=== PATIENT | female | born 1995 | race Caucasian/White ===

== ENCOUNTER 2017-02-05 19:19 | Emergency (ER) | payer OTHER ==
[2017-02-05] MEDS ORDERED: IBUPROFEN 600 MG TABLET PO STA (20:06)
[2017-02-05] MEDS ORDERED: AZITHROMYCIN 250 MG TABLET PO STA (20:07)
[2017-02-05] MEDS ORDERED: AZITHROMYCIN 250 MG TABLET PO ONE (20:10)
[2017-02-05] MEDS ORDERED: IBUPROFEN 600 MG TABLET PO ONE (20:10)
== END 2017-02-05 20:19 | disposition home or self-care (01) ==
DX: J18.9 Pneumonia, unspecified organism (principal); R55 Syncope and collapse; F17.200 Nicotine dependence, unspecified, uncomplicated
CPT/HCPCS: 71020; 87275; 87276; 99283; 99284; A9270

== ENCOUNTER 2017-02-24 15:25 | Emergency (ER) | payer OTHER ==
[2017-02-24] MEDS ORDERED: IBUPROFEN 400 MG TABLET PO STA (15:40)
[2017-02-24] MEDS ORDERED: IBUPROFEN 400 MG TABLET PO ONE (15:46)
== END 2017-02-24 17:20 | disposition home or self-care (01) ==
DX: S90.32XA Contusion of left foot, initial encounter (principal); W20.8XXA Other cause of strike by thrown, projected or falling object, initial encounter; F17.200 Nicotine dependence, unspecified, uncomplicated
CPT/HCPCS: 73630; 99282; 99283; A9270

== ENCOUNTER 2017-06-10 16:06 | Emergency (ER) | payer OTHER ==
[2017-06-10] MEDS ORDERED: ONDANSETRON 4 MG/2 ML VIAL IVP STA (16:30)
[2017-06-10] MEDS ORDERED: HYDROmorphone 1 MG/ML SYRINGE IVP STA (16:30)
[2017-06-10] MEDS ORDERED: SODIUM CHLORIDE 0.9% 1,000 ML IV ONE ×2 (16:30→17:19)
[2017-06-10] MEDS ORDERED: HYDROmorphone 1 MG/ML SYRINGE ONE (16:51)
[2017-06-10] MEDS ORDERED: ONDANSETRON 4 MG/2 ML VIAL ONE (16:51)
[2017-06-10 16:59] LABS: BILIRUBIN,URINE NEGATIVE (NEGATIVE); PH,URINE 5.5 PH (5.0-7.5)
[2017-06-10 16:59] LABS: BASOPHILS % (AUTO) 0.1 %; EOSINOPHILS # (AUTO) 0.3 10^3/uL (0.0-0.7); EOSINOPHILS % (AUTO) 2.4 %; HCT - HEMATOCRIT 41.3 % (37.0-47.0); HGB - HEMOGLOBIN 14.2 g/dL (12.0-16.0); LYMPHOCYTES % (AUTO) 7.2 %; MEAN CORPUSCULAR HEMOGLOBIN 31.4 pg (27.0-31.0); MEAN CORPUSCULAR HGB CONC 34.3 g/dL (32.0-36.0); MEAN CORPUSCULAR VOLUME 91.4 fL (81.0-99.0); MEAN PLATELET VOLUME 8.3 fL (7.9-10.8); MONOCYTES # (AUTO) 0.7 10^3/uL (0.0-1.0); MONOCYTES % (AUTO) 4.9 %; NEUTROPHILS # (AUTO) 11.4 10^3/uL (1.5-6.6); NEUTROPHILS % (AUTO) 85.4 %; RED BLOOD COUNT 4.52 10^6/uL (4.20-5.40); UNCORRECTED WHITE BLOOD COUNT 13.3 x10^3/uL; WHITE BLOOD COUNT 13.3 x10^3/uL (4.8-10.8)
[2017-06-10 17:01] LABS: HCG UR QUAL NEGATIVE; UA w/ MICROSCOPIC CHARGE YES
[2017-06-10 17:07] LABS: UR CULTURE IF IND NOT INDICATED; WBC,URINE >25 /HPF (0-5)
[2017-06-10 17:10] LABS: ALBUMIN/GLOBULIN RATIO 1.1 (1.0-2.2); BILIRUBIN,TOTAL 1.8 mg/dL (0.2-1.0); CALCIUM 9.6 mg/dL (8.5-10.3); CREATININE 0.7 mg/dL (0.4-1.0); TOTAL PROTEIN 9.3 g/dL (6.7-8.2)
--- NOTE | 2017-06-10 18:11 | ED Physician Documentation ---
PD HPI ABD PAIN - Stated complaint Stated Complaint: VOMITING - Chief complaint Chief Complaint: Abd Pain - History obtained from History obtained from: Patient - History of Present Illness Timing - onset: Last night Location: Epigastric Associated symptoms: Vomiting, Diarrhea. No: Fever Similar symptoms before: Has not had sx before - Additional information Additional information: The patient is a 21-year-old female who presents with upper abdominal discomfort , vomiting, and watery diarrhea, that has been ongoing since last night. She has had numerous episodes of vomiting. She denies fever or dysuria. She is currently on her menstrual period. She denies history of similar symptoms in the past. She is status post appendectomy. No other family members are ill with similar symptoms. Review of Systems Constitutional: denies: Fever Nose: denies: Congestion Cardiac: denies: Chest pain / pressure Respiratory: denies: Dyspnea, Cough GI: reports: Abdominal Pain, Nausea, Vomiting, Diarrhea : reports: LMP (currently). denies: Dysuria Skin: denies: Rash Musculoskeletal: denies: Back pain Neurologic: denies: Syncope, Headache PD PAST MEDICAL HISTORY - Past Medical History Cardiovascular: None Respiratory: Other Neuro: None Endocrine/Autoimmune: None GI: None : None HEENT: None Psych: None Musculoskeletal: None Derm: None - Past Surgical History Past Surgical History: Yes General: Appendectomy HEENT: Tonsil/Adenoidectomy - Present Medications Home Medications: Ambulatory Orders Medication Instructions Recorded Confirmed HYDROcod/ACETAM 5/325 [[place] 5/325] 1 - 2 ea PO Q6H PRN #15 tablet 06/10/17 Promethazine [Phenergan] 25 - 50 mg PO Q6H PRN #10 tab 06/10/17 - Allergies Allergies/Adverse Reactions: Allergies Allergy/AdvReac Type Severity Reaction Status Date / Time pineapple Allergy Severe Edema Verified 02/05/17 19:22 epinephrine Allergy Unknown Unknown Verified 02/05/17 19:22 morphine Allergy Unknown Verified 02/24/17 15:31 Penicillins Allergy Unknown Verified 02/24/17 15:31 nuts Allergy Severe Hives Uncoded 02/05/17 19:22 ирина, coconut Allergy Hives Uncoded 02/05/17 19:22 - Social History Does the pt smoke?: Yes Smoking Status: Current some day smoker Does the pt drink ETOH?: Yes Does the pt have substance abuse?: No - Immunizations Immunizations are current?: Yes - POLST Patient has POLST: No PD ED PE NORMAL - Vitals Vital signs reviewed: Yes (tachycardic) - General General: Alert and oriented X 3, Well developed/nourished - HEENT HEENT: Atraumatic, Pharynx benign - Neck Neck: No adenopathy, No JVD - Cardiac Cardiac: No murmur, Other (Rapid rate, regular rhythm.) - Respiratory Respiratory: No respiratory distress, Clear bilaterally - Abdomen Abdomen: Soft, Non distended, No organomegaly, Other (Diminished bowel tones, mild epigastric tenderness to palpation, without rebound or guarding.) - Back Back: No CVA TTP - Derm Derm: No rash - Extremities Extremities: No edema, No calf tenderness / cord - Neuro Neuro: Alert and oriented X 3, No motor deficit, No sensory deficit Results - Vitals Vitals: Vital Signs - 24 hr 06/10/17 06/10/17 06/10/17 16:09 17:52 18:44 Temperature 36.4 C L 36.6 C Heart Rate 113 H 94 88 Respiratory 18 12 16 Rate Blood Pressure 116/82 H 109/62 111/65 O2 Saturation 99 99 100 Oxygen O2 Source Room air - Labs Labs: Laboratory Tests 06/10/17 06/10/17 06/10/17 16:36 16:50 16:50 WBC 13.3 H RBC 4.52 Hgb 14.2 Hct 41.3 MCV 91.4 MCH 31.4 H MCHC 34.3 RDW 13.0 Plt Count 266 MPV 8.3 Neut # 11.4 H Lymph # 1.0 L Wilkes # 0.7 Eos # 0.3 Baso # 0.0 Absolute Nucleated RBC 0.00 Nucleated RBCs 0.0 Sodium 138 Potassium 4.0 Chloride 105 Carbon Dioxide 23 Anion Gap 10.0 BUN 26 H Creatinine 0.7 Estimated GFR (MDRD) 104 Glucose 91 Calcium 9.6 Total Bilirubin 1.8 H AST 22 ALT 14 Alkaline Phosphatase 111 Total Protein 9.3 H Albumin 4.8 Globulin 4.5 H Albumin/Globulin Ratio 1.1 Lipase 22 Urine Color YELLOW Urine Clarity HAZY Urine pH 5.5 Ur Specific [place] 1.025 Urine Protein NEGATIVE Urine Glucose (UA) NEGATIVE Urine Ketones NEGATIVE Urine Occult Blood LARGE H Urine Nitrite NEGATIVE Urine Bilirubin NEGATIVE Urine Urobilinogen 0.2 (NORMAL) Ur Leukocyte Esterase MODERATE H Urine RBC 11-25 H Urine WBC >25 H Ur Squamous Epith Cells MANY Squamous H Urine Bacteria Few Urine Mucus Marked Strands Ur Microscopic Review INDICATED Urine Culture Comments NOT INDICATED Urine HCG, Qual NEGATIVE PD MEDICAL DECISION MAKING - ED course Complexity details: reviewed results, re-evaluated patient, considered differential, d/w patient, d/w family ED course: The patient's presentation is significant for gastroenteritis with vomiting, diarrhea, and dehydration. It is likely viral gastroenteritis. Her presentation does not suggest pancreatitis, biliary colic, and I doubt colitis. Treatment in the emergency department included administration of normal saline 2 L IV, hydromorphone 1 mg IV, and ondansetron 4 mg IV. Her symptoms markedly improved with the above treatment, and she subsequently demonstrated the ability to drink fluids without recurrent vomiting. She is being discharged with prescriptions for Phenergan and for Vicodin, 15 tablets. I discussed with her and her the expected course of illness, symptomatic treatment and outpatient follow-up, as well as potentially worrisome signs or symptoms that should prompt reevaluation is needed emergency department. Departure - Departure Disposition: 01 Home, Self Care Clinical Impression: Gastroenteritis, Dehydration Vomiting Qualifiers: Vomiting type: unspecified Vomiting Intractability: non-intractable Nausea presence: with nausea Qualified Code(s): R11.2 - Nausea with vomiting, unspecified Diarrhea Qualifiers: Diarrhea type: unspecified type Qualified Code(s): R19.7 - Diarrhea, unspecified Instructions: ED Gastroenteritis Viral, ED Dehydration [facility]] Prescriptions: HYDROcod/ACETAM 5/325 [[place] 5/325] 1 - 2 ea PO Q6H PRN #15 tablet PRN Reason: Pain Promethazine [Phenergan] 25 - 50 mg PO Q6H PRN #10 tab PRN Reason: Nausea / Vomiting Comments: Drink plenty of fluids. You can use Phenergan as prescribed if needed for nausea. You can use Vicodin as prescribed if needed for pain. Return to the emergency department if you develop increasing abdominal pain, persistent vomiting with recurrent dehydration, or otherwise worsening symptoms. Discharge Date/Time: 06/10/17 18:45
[2017-06-10 18:45] VITALS: BP 111/65
== END 2017-06-10 18:45 | disposition home or self-care (01) ==
LOC: ED 16:06
DX: E86.0 Dehydration (principal); K52.9 Noninfective gastroenteritis and colitis, unspecified; F17.200 Nicotine dependence, unspecified, uncomplicated
CPT/HCPCS: 36415; 80053; 81001; 81025; 83690; 85025; 96361; 96374; 96375; 99283; 99284; J1170; 81003; 87086

== ENCOUNTER 2017-07-01 22:32 | Emergency (ER) | payer OTHER ==
[2017-07-01 22:41] VITALS: BP 123/88
--- NOTE | 2017-07-01 23:08 | ED Physician Documentation ---
PD HPI UPPER EXT INJURY - Stated complaint Stated Complaint: RT ARM PX - Chief complaint Chief Complaint: Ext Problem - History obtained from History obtained from: Patient - History of Present Illness Location: Right, Shoulder, Elbow, Finger (middle) Type of injury: Twist (her dog pulled/yanked abruptly on the leash as she was holding it around her wrist. No fall nor direct impact.) Where injury occurred: Home Timing - onset: Today (just shortly [employer]) Timing - details: Abrupt onset, Still present Review of Systems Skin: denies: Rash, Lesions Neurologic: denies: Focal weakness, Numbness PD PAST MEDICAL HISTORY - Past Medical History Past Medical History: No Cardiovascular: None Respiratory: Other Neuro: None Endocrine/Autoimmune: None GI: None : None HEENT: None Psych: None Musculoskeletal: None Derm: None - Past Surgical History Past Surgical History: Yes General: Appendectomy HEENT: Tonsil/Adenoidectomy - Present Medications Home Medications: Ambulatory Orders Medication Instructions Recorded Confirmed Tramadol HCl 50 mg PO Q6H PRN #20 tablet 07/01/17 - Allergies Allergies/Adverse Reactions: Allergies Allergy/AdvReac Type Severity Reaction Status Date / Time pineapple Allergy Severe Edema Verified 07/01/17 22:40 epinephrine Allergy Unknown Unknown Verified 07/01/17 22:40 morphine Allergy Unknown Verified 07/01/17 22:40 Penicillins Allergy Unknown Verified 07/01/17 22:40 nuts Allergy Severe Hives Uncoded 07/01/17 22:40 ирина, coconut Allergy Hives Uncoded 07/01/17 22:40 - Social History Does the pt smoke?: Yes Smoking Status: Current some day smoker Does the pt drink ETOH?: Yes Does the pt have substance abuse?: No - Immunizations Immunizations are current?: Yes - POLST Patient has POLST: No PD ED PE NORMAL - Vitals Vital signs reviewed: Yes - General General: Alert and oriented X 3, No acute distress, Well developed/nourished - Derm Derm: Normal color, Warm and dry, No rash - Extremities Extremities: Other (right shoulder with some tenderness in suprascapular muscles. Shoulder itself without tenderness at clavicle nor AC. Good ROM of the shoulder and hurts mainly with abductions. Elbow tender posteriorly. Not tender at radial head. Good full flexion and extension, no effusion. RIght middle finger with tenderness at PIP and MCP but no deformity. Good sensation, color, cap refill in tip. No obvious bony deformity. ) Results - Vitals Vitals: Vital Signs - 24 hr 07/01/17 22:37 Temperature 36.4 C L Heart Rate 115 H Respiratory 16 Rate Blood Pressure 123/88 H O2 Saturation 100 Oxygen O2 Source Room air PD MEDICAL DECISION MAKING - ED course Complexity details: considered differential (pain at finger, elbow and shoulder but no bony deformity/ full ROM. Clinically does not seem fractures; patient agrees she does not think she broke anything. Defer xrays. ), d/w patient Departure - Departure Disposition: Home, Self Care Clinical Impression: Arm sprain Finger sprain Qualifiers: Encounter type: initial encounter Finger: middle finger Sprain of finger site: unspecified site Laterality: right Qualified Code(s): S63.612A - Unspecified sprain of right middle finger, initial encounter Condition: Stable Record reviewed to determine appropriate education?: Yes Instructions: ED Sprain Finger, ED Sprain Elbow Prescriptions: Tramadol HCl 50 mg PO Q6H PRN #20 tablet PRN Reason: Pain Comments: Sling for the elbow and shoulder and finger splint for the finger as needed for comfort. Ibuprofen or Naproxen twice daily for 4-5 days. Add Tylenol or Tramadol as needed. Presume ligaments and muscles were injured with the mechanism of injury, so will likely take several days to a week or so to improve. Progress use and activity as able. Recheck if not all better over a week. Discharge Date/Time: 07/01/17 23:50
[2017-07-01] MEDS ORDERED: IBUPROFEN 600 MG TABLET PO STA (23:29)
[2017-07-01] MEDS ORDERED: ACETAMINOPHEN 325 MG TABLET PO STA (23:29)
[2017-07-01] MEDS ORDERED: traMADol 50 MG TABLET PO STA (23:36)
[2017-07-01] MEDS ORDERED: traMADol 50 MG TABLET PO ONE (23:48)
[2017-07-01] MEDS ORDERED: ACETAMINOPHEN 325 MG TABLET PO ONE (23:48)
[2017-07-01] MEDS ORDERED: IBUPROFEN 600 MG TABLET PO ONE (23:48)
== END 2017-07-01 23:50 | disposition home or self-care (01) ==
LOC: ED 22:32
DX: S63.612A Unspecified sprain of right middle finger, initial encounter (principal); X50.1XXA Overexertion from prolonged static or awkward postures, initial encounter; Y93.K1 Activity, walking an animal; F17.200 Nicotine dependence, unspecified, uncomplicated
CPT/HCPCS: 29130; 99283; A9270

== ENCOUNTER 2017-11-12 13:49 | Outpatient (CLI) | payer OTHER ==
[2017-11-12 14:43] LABS: BASOPHILS % (AUTO) 0.2 %; EOSINOPHILS % (AUTO) 0.5 %; LYMPHOCYTES # (AUTO) 1.4 10^3/uL (1.5-3.5); LYMPHOCYTES % (AUTO) 19.2 %; MEAN CORPUSCULAR HGB CONC 35.5 g/dL (32.0-36.0); MEAN CORPUSCULAR VOLUME 92.8 fL (81.0-99.0); MEAN PLATELET VOLUME 8.7 fL (7.9-10.8); MONOCYTES # (AUTO) 0.4 10^3/uL (0.0-1.0); MONOCYTES % (AUTO) 4.8 %; NEUTROPHILS # (AUTO) 5.6 10^3/uL (1.5-6.6); NEUTROPHILS % (AUTO) 75.3 %; PLT - PLATELET COUNT 210 10^3/uL (130-450); RED BLOOD COUNT 3.63 10^6/uL (4.20-5.40); RED CELL DISTRIBUTION WIDTH 13.2 % (12.0-15.0); WHITE BLOOD COUNT 7.5 x10^3/uL (4.8-10.8)
[2017-11-12 15:00] LABS: BILIRUBIN,URINE NEGATIVE (NEGATIVE); GLUCOSE, URINE (UA) NEGATIVE (NEGATIVE); KETONES,URINE (UA) NEGATIVE (NEGATIVE); LEUKOCYTE ESTERASE, URINE MODERATE (NEGATIVE); NITRITE,URINE NEGATIVE (NEGATIVE); OCCULT BLOOD,URINE TRACE-INTA (NEGATIVE); PROTEIN,URINE NEGATIVE (NEGATIVE); UROBILINOGEN,URINE 0.2 (NORMAL) E.U./dL (NORMAL)
[2017-11-12 15:05] LABS: CLARITY,URINE HAZY (CLEAR)
[2017-11-12 15:14] LABS: BACTERIA,URINE Many /HPF (None Seen); RBC,URINE TNTC /HPF (0-5); SQUAMOUS EPITHELIAL CELL,UR MANY Squamous (<= Few); TRICHOMONAS,URINE PRESENT (None Seen)
[2017-11-13 11:51] LABS: HIV AG/AB 4TH GEN NON-REACTIVE (NON-REACTIVE)
[2017-11-13 13:22] LABS: HEPATITIS B SURFACE ANTIGEN NON-REACTIVE (NON-REACTIVE)
[2017-11-13 13:23] LABS: HEPATITIS C ANTIBODY NON-REACTIVE (NON-REACTIVE)
== END 2017-11-12 13:50 | disposition home or self-care (01) ==
LOC: LAB 13:49
PROVIDERS: ATTEND Obstetrics & Gynecology
DX: Z36.9 Encounter for antenatal screening, unspecified (principal)
CPT/HCPCS: 36415; 81001; 81599; 85025; 86592; 86762; 86803; 86850; 86900; 86901; 87086; 87340; 87389

== ENCOUNTER 2017-12-08 18:55 | Emergency (ER) | payer OTHER ==
[2017-12-08 19:39] LABS: BILIRUBIN,URINE NEGATIVE (NEGATIVE); GLUCOSE, URINE (UA) NEGATIVE (NEGATIVE); KETONES,URINE (UA) NEGATIVE (NEGATIVE); LEUKOCYTE ESTERASE, URINE LARGE (NEGATIVE); NITRITE,URINE NEGATIVE (NEGATIVE); OCCULT BLOOD,URINE SMALL (NEGATIVE); PROTEIN,URINE NEGATIVE (NEGATIVE); UROBILINOGEN,URINE 0.2 (NORMAL) E.U./dL (NORMAL)
[2017-12-08 19:43] LABS: CLARITY,URINE CLEAR (CLEAR); HCG UR QUAL POSITIVE
[2017-12-08 19:47] LABS: BASOPHILS % (AUTO) 0.3 %; EOSINOPHILS # (AUTO) 0.1 10^3/uL (0.0-0.7); HGB - HEMOGLOBIN 11.5 g/dL (12.0-16.0); LYMPHOCYTES # (AUTO) 1.7 10^3/uL (1.5-3.5); LYMPHOCYTES % (AUTO) 21.8 %; MEAN CORPUSCULAR HEMOGLOBIN 33.3 pg (27.0-31.0); MEAN CORPUSCULAR HGB CONC 34.7 g/dL (32.0-36.0); MEAN CORPUSCULAR VOLUME 96.1 fL (81.0-99.0); MONOCYTES # (AUTO) 0.4 10^3/uL (0.0-1.0); MONOCYTES % (AUTO) 5.6 %; NEUTROPHILS # (AUTO) 5.6 10^3/uL (1.5-6.6); NEUTROPHILS % (AUTO) 71.3 %; PLT - PLATELET COUNT 206 10^3/uL (130-450); RED BLOOD COUNT 3.45 10^6/uL (4.20-5.40); RED CELL DISTRIBUTION WIDTH 14.3 % (12.0-15.0); WHITE BLOOD COUNT 7.8 x10^3/uL (4.8-10.8)
[2017-12-08 19:58] LABS: ALBUMIN 3.6 g/dL (3.2-5.5); ALBUMIN/GLOBULIN RATIO 0.9 (1.0-2.2); ALKALINE PHOSPHATASE 65 IU/L (42-121); ALT ALANINE AMINOTRANSFERASE < 10 IU/L (10-60); AST ASPARTATE AMINOTRANSFERASE 16 IU/L (10-42); BILIRUBIN,TOTAL 0.6 mg/dL (0.2-1.0); BUN - BLOOD UREA NITROGEN 6 mg/dL (6-20); CALCIUM 8.8 mg/dL (8.5-10.3); CARBON DIOXIDE - CO2 21 mmol/L (21-32); CHLORIDE 105 mmol/L (101-111); CREATININE 0.4 mg/dL (0.4-1.0); GFR - MDRD 196 (>89); GLUCOSE 88 mg/dL (70-100); LIPASE 17 U/L (22-51); SODIUM 133 mmol/L (135-145); TOTAL PROTEIN 7.5 g/dL (6.7-8.2)
[2017-12-08 20:03] LABS: SQUAMOUS EPITHELIAL CELL,UR MOD Squamous (<= Few)
[2017-12-08 20:04] LABS: BACTERIA,URINE Moderate /HPF (None Seen); TRICHOMONAS,URINE PRESENT (None Seen); YEAST,URINE PRESENT
--- NOTE | 2017-12-08 20:21 | ED Physician Documentation ---
PD HPI BACK PAIN - Stated complaint Stated Complaint: LOW BACK PX/13 WEEKS - Chief complaint Chief Complaint: General - History obtained from History obtained from: Patient - History of Present Illness Timing - onset: How many weeks ago (2) Timing - duration: Weeks Timing - details: Gradual onset, Waxing and waning Pain level now: 8 Location: Mid, Lower, Right, Left Quality: Pain Associated symptoms: No: Fever, Weakness, Numbness Similar symptoms before: Diagnosis (ongoing/recurrent UTI) Recently seen: Emergency Dept ( ED twice, PMD once) - Additional information Additional information: T+R ED 11/20, rx keflex for UTI (UA grew staph. sapropyticus but sensitivities not performed). Returned to ED 12/02 for ongoing symptoms (back pain, dysuria), UA showed trich (rx flagyl) and suggestive of UTI (rx septra), but grew mixed gram (+) kota. F/U PMD ([place]) 12/03, rx amoxil 500mg PO QD x 90 tabs. She presents to ED at this time due to ongoing symptoms (bilateral mid/ lower back pain and burning dysuria). Review of Systems Constitutional: denies: Fever, Chills, Sweats GI: denies: Abdominal Pain, Nausea, Vomiting, Constipation, Diarrhea : reports: Dysuria, Now EGA (13 weeks (US revealed placenta previa)) . denies: Frequency PD PAST MEDICAL HISTORY - Past Medical History Cardiovascular: None Respiratory: Other Neuro: None Endocrine/Autoimmune: None GI: None : None HEENT: None Psych: None Musculoskeletal: None Derm: None - Past Surgical History Past Surgical History: Yes General: Appendectomy HEENT: Tonsil/Adenoidectomy - Present Medications Home Medications: Ambulatory Orders Medication Instructions Recorded Confirmed Amox/Clav 875/125 [Augmentin] 1 each PO Q12H #13 tablet 12/08/17 Pnv95/Ferrous Fumarate/FA 1 tab PO DAILY 12/08/17 12/08/17 [ Formula Tablet] - Allergies Allergies/Adverse Reactions: Allergies Allergy/AdvReac Type Severity Reaction Status Date / Time pineapple Allergy Severe Edema Verified 12/08/17 19:10 epinephrine Allergy Unknown Unknown Verified 12/08/17 19:10 morphine Allergy Unknown Verified 12/08/17 19:10 Penicillins Allergy Unknown Verified 12/08/17 19:10 nuts Allergy Severe Hives Uncoded 12/08/17 19:10 ирина, coconut Allergy Hives Uncoded 12/08/17 19:10 - Social History Does the pt smoke?: Yes Smoking Status: Current every day smoker Does the pt drink ETOH?: Yes Does the pt have substance abuse?: No - Immunizations Immunizations are current?: Yes - POLST Patient has POLST: No PD ED PE NORMAL - Vitals Vital signs reviewed: Yes - General General: Alert and oriented X 3, No acute distress, Well developed/nourished - Cardiac Cardiac: RRR, No murmur - Respiratory Respiratory: No respiratory distress, Clear bilaterally - Abdomen Abdomen: Soft, Non tender, Non distended - Back Back: No CVA TTP - Derm Derm: Normal color, Warm and dry - Extremities Extremities: No edema Results - Vitals Vitals: Vital Signs - 24 hr 12/08/17 12/08/17 19:06 21:12 Temperature 36.6 C Heart Rate 90 87 Respiratory 17 15 Rate Blood Pressure 129/81 H 116/72 O2 Saturation 98 98 Oxygen O2 Source Room air - Labs Labs: Laboratory Tests 12/08/17 12/08/17 12/08/17 19:20 19:30 19:30 WBC 7.8 RBC 3.45 L Hgb 11.5 L Hct 33.1 L MCV 96.1 MCH 33.3 H MCHC 34.7 RDW 14.3 Plt Count 206 MPV 8.0 Neut # 5.6 Lymph # 1.7 [place] # 0.4 Eos # 0.1 Baso # 0.0 Absolute Nucleated RBC 0.01 Nucleated RBC % 0.1 Sodium 133 L Potassium 3.4 L Chloride 105 Carbon Dioxide 21 Anion Gap 7.0 BUN 6 Creatinine 0.4 Estimated GFR (MDRD) 196 Glucose 88 Calcium 8.8 Total Bilirubin 0.6 AST 16 ALT < 10 L Alkaline Phosphatase 65 Total Protein 7.5 Albumin 3.6 Globulin 3.9 Albumin/Globulin Ratio 0.9 L Lipase 17 L Urine Color YELLOW Urine Clarity CLEAR Urine pH 6.0 Ur Specific [place] 1.015 Urine Protein NEGATIVE Urine Glucose (UA) NEGATIVE Urine Ketones NEGATIVE Urine Occult Blood SMALL H Urine Nitrite NEGATIVE Urine Bilirubin NEGATIVE Urine Urobilinogen 0.2 (NORMAL) Ur Leukocyte Esterase LARGE H Urine RBC 11-25 H Urine WBC >25 H Ur Squamous Epith Cells MOD Squamous H Urine Bacteria Moderate H Urine Trichomonas PRESENT H Urine Yeast PRESENT Ur Microscopic Review INDICATED Urine Culture Comments NOT INDICATED Urine HCG, Qual POSITIVE PD MEDICAL DECISION MAKING - ED course Complexity details: reviewed old records, reviewed results, re-evaluated patient , considered differential, d/w patient ED course: D/W Dr. Hay, plan is to rx augmentin for one week, then resume amoxicillin. Departure - Departure Disposition: Home, Self Care Clinical Impression: UTI in Qualifiers: Trimester: second trimester Qualified Code(s): O23.42 - Unspecified infection of urinary tract in , second trimester Condition: Good Instructions: ED UTI Cystitis Female Follow-Up: Brandi Hay, [Provider Admit Priv/Credential] - Within 1 week Prescriptions: Amox/Clav 875/125 [Augmentin] 1 each PO Q12H #13 tablet Comments: Continue the metronidazole and septra. Stop taking the amoxicillin; you will be taking the augmentin (amoxicillin/clavulanate) in its place. Resume taking the amoxicillin the day after you take your last dose of augmentin. Discharge Date/Time: 12/08/17 21:12
[2017-12-08] MEDS ORDERED: AMOX/CLAV 875 MG/125 MG TABLET PO STA (20:53)
[2017-12-08] MEDS ORDERED: HYDROcod/ACET 5/325 Prepack 6 PO STA (20:54)
[2017-12-08 21:12] VITALS: BP 116/72
== END 2017-12-08 21:12 | disposition home or self-care (01) ==
LOC: ED 18:55
DX: O23.41 Unspecified infection of urinary tract in pregnancy, first trimester (principal); O99.331 Smoking (tobacco) complicating pregnancy, first trimester; F17.200 Nicotine dependence, unspecified, uncomplicated; Z3A.13 13 weeks gestation of pregnancy
CPT/HCPCS: 36415; 80053; 81001; 81025; 83690; 85025; 99283; A9270; 81003; 87086

== ENCOUNTER 2017-12-22 14:10 | Outpatient (CLI) | payer OTHER | END 2017-12-22 14:11 | disposition home or self-care (01) | LOC: LAB 14:10 | PROVIDERS: ATTEND Obstetrics & Gynecology | DX: Z3A.14 14 weeks gestation of pregnancy (principal) | CPT/HCPCS: 36415; 81599; 82105; 82677; 84702; 86336 ==

== ENCOUNTER 2017-12-31 14:44 | Outpatient (CLI) | payer OTHER | END 2017-12-31 14:45 | disposition home or self-care (01) | LOC: LAB.R 14:44 | PROVIDERS: ATTEND Nurse Practitioner Obstetrics & Gynecology | DX: R82.90 Unspecified abnormal findings in urine (principal) | CPT/HCPCS: 87086 ==

== ENCOUNTER 2018-01-03 13:22 | Outpatient (CLI) | payer OTHER ==
[2018-01-03 13:43] LABS: BASOPHILS % (AUTO) 0.6 %; EOSINOPHILS # (AUTO) 0.1 10^3/uL (0.0-0.7); EOSINOPHILS % (AUTO) 1.3 %; HGB - HEMOGLOBIN 10.9 g/dL (12.0-16.0); LYMPHOCYTES # (AUTO) 1.5 10^3/uL (1.5-3.5); LYMPHOCYTES % (AUTO) 18.4 %; MEAN CORPUSCULAR HEMOGLOBIN 33.6 pg (27.0-31.0); MEAN PLATELET VOLUME 7.9 fL (7.9-10.8); MONOCYTES # (AUTO) 0.5 10^3/uL (0.0-1.0); MONOCYTES % (AUTO) 5.9 %; NEUTROPHILS # (AUTO) 6.1 10^3/uL (1.5-6.6); NEUTROPHILS % (AUTO) 73.8 %; PLT - PLATELET COUNT 231 10^3/uL (130-450); RED BLOOD COUNT 3.25 10^6/uL (4.20-5.40); RED CELL DISTRIBUTION WIDTH 14.2 % (12.0-15.0); WHITE BLOOD COUNT 8.3 x10^3/uL (4.8-10.8)
[2018-01-03 14:17] LABS: ALBUMIN 3.2 g/dL (3.2-5.5); ALBUMIN/GLOBULIN RATIO 0.8 (1.0-2.2); CALCIUM 8.6 mg/dL (8.5-10.3); CREATININE 0.5 mg/dL (0.4-1.0); URIC ACID 3.1 mg/dL (2.6-7.2)
== END 2018-01-03 13:23 | disposition home or self-care (01) ==
LOC: LAB 13:22
PROVIDERS: ATTEND Nurse Practitioner Obstetrics & Gynecology
DX: O10.012 Pre-existing essential hypertension complicating pregnancy, second trimester (principal)
CPT/HCPCS: 36415; 80053; 84550; 85025

== ENCOUNTER 2018-02-14 08:00 | Outpatient (CLI) | payer OTHER | END 2018-02-14 23:59 | disposition home or self-care (01) | LOC: LAB.R 08:00 | PROVIDERS: ATTEND Obstetrics & Gynecology | DX: O23.42 Unspecified infection of urinary tract in pregnancy, second trimester (principal) | CPT/HCPCS: 87086 ==

== ENCOUNTER 2018-02-25 07:44 | Outpatient (CLI) | payer OTHER ==
--- NOTE | 2018-02-25 14:07 | Ultrasound Report ---
OB ULTRASOUND: 02/25/2018 CLINICAL INDICATION: anatomy. TECHNIQUE: Real-time scanning was performed with district representative static images obtained. LAST MENSTRUAL PERIOD 09/07/2017 Clinical Age 24 weeks 3 days US Age 24 weeks 6 days EFW Hadlock 757 grams EFW% Hadlock 56% Heart Rate 140 bpm EDC 06/14/2018 US EDC 06/11/2018 BPD Hadlock 24 weeks 6 days; Mean mm 61 HC Hadlock 24 weeks 5 days; Mean mm 226 AC Hadlock 25 weeks 2 days; Mean mm 208 FL Hadlock 24 weeks 4 days; Mean mm 44 Presentation breech Placental Location posterior Cervical Length TA 4.9 cm Amniotic Fluid 11.07 cm; subjectively normal; MVP 3.9 cm FINDINGS There is a single viable intrauterine gestation, in breech presentation. heart rate is 140 BPM. Amniotic fluid volume is subjectively normal, with a deepest pocket of 3.9 cm. Placenta is posterior, without evidence of previa. By size, the fetus measures 24 weeks, 6 days (24 weeks 3 days by office dating). The following anatomic structures were visualized and appear normal: The intracranial contents, including the ventricles and posterior fossa; the lips and orbits; the spine; the heart, including 4 chamber view and outflow tracts, and diaphragm; the abdominal contents, including the stomach, the bilateral kidneys, and urinary bladder; as well as a normal 3-vessel cord insertion; 4 limbs. No free fluid or adnexal lesion is appreciated. IMPRESSION: SINGLE VIABLE INTRAUTERINE GESTATION, WITH SIZE IN KEEPING WITH GIVEN DATING. NORMAL ANATOMIC SURVEY. TD: 02/25/2018 11:35 [facility]
== END 2018-02-25 07:45 | disposition home or self-care (01) ==
LOC: DI 07:44
PROVIDERS: ATTEND Obstetrics & Gynecology
DX: Z36.9 Encounter for antenatal screening, unspecified (principal)
CPT/HCPCS: 76811

== ENCOUNTER 2018-03-04 13:45 | Outpatient (CLI) | payer OTHER | END 2018-03-04 13:46 | disposition home or self-care (01) | LOC: LAB.R 13:45 | PROVIDERS: ATTEND Registered Nurse | DX: R82.90 Unspecified abnormal findings in urine (principal) | CPT/HCPCS: 87086; 87491; 87591 ==

== ENCOUNTER 2018-03-04 15:25 | Outpatient (CLI) | payer OTHER ==
[2018-03-04 16:56] LABS: HGB - HEMOGLOBIN 8.9 g/dL (12.0-16.0); MEAN CORPUSCULAR HEMOGLOBIN 30.1 pg (27.0-31.0); MEAN CORPUSCULAR HGB CONC 33.1 g/dL (32.0-36.0); MEAN CORPUSCULAR VOLUME 90.8 fL (81.0-99.0); RED BLOOD COUNT 2.97 10^6/uL (4.20-5.40); RED CELL DISTRIBUTION WIDTH 13.9 % (12.0-15.0); WHITE BLOOD COUNT 9.5 x10^3/uL (4.8-10.8)
[2018-03-04 17:53] LABS: % IRON SATURATION 5 % (20-50); IRON 28 ug/dL (28-170); TOTAL IRON BINDING CAPACITY 608 ug/dL (250-450); TRANSFERRIN 434 mg/dL (192-382)
[2018-03-05 12:41] LABS: HIV AG/AB 4TH GEN NON-REACTIVE (NON-REACTIVE)
[2018-03-05 13:06] LABS: HEPATITIS C ANTIBODY NON-REACTIVE (NON-REACTIVE)
[2018-03-08 12:16] LABS: HSV 1 IGG TYPE SPECIFIC AB 51.5 index; HSV 2 IGG TYPE SPECIFIC AB 4.75 index
== END 2018-03-04 15:26 | disposition home or self-care (01) ==
LOC: LAB 15:25
PROVIDERS: ATTEND Registered Nurse
DX: Z34.82 Encounter for supervision of other normal pregnancy, second trimester (principal); Z11.3 Encounter for screening for infections with a predominantly sexual mode of transmission; R82.90 Unspecified abnormal findings in urine
CPT/HCPCS: 36415; 81599; 82950; 83540; 84466; 86592; 86695; 86696; 86803; 87086; 87389; 87491; 87591

== ENCOUNTER 2018-03-10 15:18 | Outpatient (CLI) | payer OTHER ==
[2018-03-10] MEDS ORDERED: ACETAMINOPHEN 325 MG TABLET PO SCH (17:00)
[2018-03-10] MEDS ORDERED: ONDANSETRON ODT 4 MG TABLET TL SCH (17:00)
[2018-03-10 20:22] VITALS: BP 105/59
--- NOTE | 2018-03-16 16:45 | HISTORY & PHYSICAL EXAMINATION ---
DATE OF SERVICE: 03/10/2018 Physician: Faizan Mayer MD DIAGNOSIS: Probable viral gastroenteritis, 28 week 2 day gestation. HISTORY OF PRESENT ILLNESS: The patient is a 22-year-old , 4, para 3-0-0-3 woman who [facility] She reports abdominal cramping with associated nausea and vomiting. She has not been able to hold down solids or liquids in the last 12 hours. She has been exposed to viral enteritis. She does not have any vaginal discharge, pelvic pressure or bloody show. PHYSICAL EXAMINATION: GENERAL: The patient appears ill. VITAL SIGNS: Temperature 98.4, pulse 110, blood pressure 105/59, respirations 16, pO2 of 98. HEENT: Coryza mild viral pattern pharyngitis. Supple neck. No thyromegaly. LUNGS: Clear to auscultation. CARDIAC: Regular flow murmur. UTERUS: Normal resting tone, nontender. No contractions felt. External monitor strip category 1. No contractions. Baseline 140, moderate variability, reactive. ABDOMEN: Slight distention, very active bowel sounds. EXTREMITIES: No edema. Moves all 4 extremities well. IMPRESSION: 1. Probable viral gastroenteritis. Doubt labor. No concerns about wellbeing. 2. Abdominal pain. 3. Nausea and vomiting. PLAN: 1. Begin IV fluids. 2. Zofran 4 mg q. 4 hours p.r.n. 3. Advance diet cautiously. 4. Tylenol 650 q. 4 hours p.r.n. 5. May monitor intermittently. TD: 03/16/2018 16:44
== END 2018-03-10 21:10 | disposition home or self-care (01) ==
LOC: WFO 15:18 → FBP 15:19 → WFO 21:10
PROVIDERS: ATTEND Obstetrics & Gynecology
DX: O99.89 Other specified diseases and conditions complicating pregnancy, childbirth and the puerperium (principal); R10.9 Unspecified abdominal pain; R11.2 Nausea with vomiting, unspecified; Z3A.28 28 weeks gestation of pregnancy
CPT/HCPCS: 99212; A9270; Q0162

== ENCOUNTER 2018-03-11 07:50 | Outpatient (CLI) | payer OTHER | END 2018-03-11 07:51 | disposition home or self-care (01) | LOC: LAB 07:50 | PROVIDERS: ATTEND Obstetrics & Gynecology | DX: O99.810 Abnormal glucose complicating pregnancy (principal) | CPT/HCPCS: 36415; 82951 ==

== ENCOUNTER 2018-03-30 12:22 | Outpatient (CLI) | payer OTHER ==
[2018-03-30 12:50] VITALS: BP 115/72
[2018-03-30] MEDS ORDERED: SODIUM CHLORIDE FLUSH 0.9% 10 ML SYRINGE ONE (13:47)
[2018-03-30 14:01] LABS: BILIRUBIN,URINE NEGATIVE (NEGATIVE); GLUCOSE, URINE (UA) NEGATIVE (NEGATIVE); KETONES,URINE (UA) NEGATIVE (NEGATIVE); LEUKOCYTE ESTERASE, URINE LARGE (NEGATIVE); NITRITE,URINE NEGATIVE (NEGATIVE); OCCULT BLOOD,URINE LARGE (NEGATIVE); PH,URINE 7.5 PH (5.0-7.5); PROTEIN,URINE NEGATIVE (NEGATIVE); UROBILINOGEN,URINE 0.2 (NORMAL) E.U./dL (NORMAL)
[2018-03-30 14:02] LABS: CLARITY,URINE CLOUDY (CLEAR)
--- NOTE | 2018-03-30 14:02 | PROVIDER PROGRESS NOTE ---
Subjective - Prog Note Date Prog Note Date: 03/30/18 Prog Note Time: 14:00 - Subjective Subjective: Bettina Deleon is a 22-year-old 4 para 3 woman who comes to labor and delivery complaining of painless vaginal bleeding. She states prior to arriving that she saturated a pad. There is no suspicion of ROM. She reports a runny vaginal discharge and fears that her partners given her an STD. In the past she is been positive for chlamydia. She reports no vulvar lesions or sores. She reports no significant uterine contractions or abdominal pain. No dysuria or urgency but uncertain about hematuria. Early in the she was reported to have a low-lying placenta but last ultrasound on 25 February showed no previa and adequate growth. She is known to be severely anemic and her last hemoglobin in February was 8.9 g. She is currently scheduled for iron infusion. She believes that she is allergic to iron infusion because of post treatment nausea. She has craving of ice and low exercise tolerance. She denies anginal pain or air hunger. In a prior she had hemorrhage. I explained the importance of high iron containing foods and a high protein diet. We are arranging dietary consult today. Objective - Vital Signs/Intake & Output Vital Signs: Vital Signs x48h Temp Pulse Resp BP Pulse Ox 03/30/18 12:30 98.6 F 113 H 17 115/72 98 Exam - Exam Vital Signs: Vital Signs (72 hours) 03/30/18 12:30 Temperature 98.6 F Heart Rate [ 113 H Monitoring electrodes] Respiratory 17 Rate Blood Pressure 115/72 [Left Brachial artery] O2 Saturation 98 General: Alert, Oriented x3, Cooperative, Other (Glib) HEENT: EOMI, Mucous membr. moist/pink Abdomen: No tenderness, No hepatospenomegaly, No masses, Other (Uterus normal resting tone no contractions noted on palpation or heart tracing. External heart tracing category 1 with baseline around 130 and moderate variability) Extremities: No edema, Other (Pale) Skin: No rashes Neurological: Normal speech, Normal tone Psych/Mental Status: Other (Patient has inappropriately elevated mood; but not manic or violent.) Assessment/Plan - Assessment/Plan Assessment: Patient comes for reported vaginal bleeding. Detailed examination finds no bleeding present. Previous ultrasound shows normal placentation. No evidence of labor and heart tracing is normal. Patient has severe anemia and is hesitant to continue iron infusion therapy based on nausea. Thus far diet and supplementation/ vitamins is not worked. Patient's compliance is doubtful. If patient has a major obstetric hemorrhage it would be life-threatening. Nausea is not normally thought as a allergic reaction to iron. Patient reports many obstetrical problems such as hemorrhage, previa, and cord prolapse. She seems to enjoy drama and commanding the center of attention. I discussed iron transfusion with Dr. Villareal chief security and safety officer. He states that nausea is not evidence of an allergy to iron infusion but only a common side effect. He believes the patient would do better with infusion therapy since compliance with oral therapy and dietary change is doubtful. Plan: PLAN * Continued observation * Await GC/chlamydia testing results, wet mount does not show trichomoniasis or yeast only BV type microscopic findings. Patient does not report discharge symptoms (vulvitis vaginitis, foul smell) and therefore we will not treat * Urinalysis negative for infection * Due to severe anemia and nutritional compromise repeat ultrasound for growth today. Results pending * Dietary consult * Advise patient that iron infusion should be safe for her and could prevent a life-threatening situation if she experiences a obstetrical hemorrha * Discussed anemia workup with Dr. Villareal and at this point labs would be inaccurate. In all likelihood this is iron deficiency, but hemoglobinopathy and intrinsic Anemia could be checked post delivery * Patient apathetic about possible problems associated with severe anemia and . Uncertain if her behavior and attitude reflect a personality disorder * Patient to see Dr. Hay tomorrow at which time this information will be reinforced.
[2018-03-30 14:20] LABS: RUPTURE OF MEMBRANES PLUS NEGATIVE (NEGATIVE)
[2018-03-30 14:27] LABS: BACTERIA,URINE Many /HPF (None Seen); RBC,URINE TNTC /HPF (0-5); SQUAMOUS EPITHELIAL CELL,UR MANY Squamous (<= Few)
[2018-03-30 14:28] LABS: AMORPHOUS SEDIMENT,UR Marked /LPF; CASTS, URINE 0-2 Granular Casts /LPF
--- NOTE | 2018-04-02 16:42 | Ultrasound Report ---
OB FOLLOWUP: 03/30/2018 CLINICAL INDICATION: Growth, cervical length. TECHNIQUE: Real-time scanning was performed with account service representative static images obtained. LAST MENSTRUAL PERIOD: 09/04/2017 Clinical Age: 29 weeks 4 days US Age: 30 weeks 2 days EFW Hadlock: 1610 grams EFW% Hadlock: 66% Heart Rate: 142 bpm EDC: 06/11/2018 US EDC: 06/06/2018 BPD Hadlock: 31 weeks 1 day; Mean mm 78 HC Hadlock: 30 weeks 1 day; Mean mm 276 AC Hadlock: 30 weeks 6 days; Mean mm 267 FL Hadlock: 30 weeks 3 days; Mean mm 58 Presentation: cephalic Placental Location: posterior Cervical Length: 4.0 cm Amniotic Fluid: ALEYDA 17.2 cm; MVP 5.2 cm FINDINGS: There is a single viable intrauterine gestation, in cephalic presentation. heart rate is 142 BPM. Placenta is posterior, without evidence of previa. By size, the fetus measures 30 weeks 2 days (29 weeks 4 days by initial sonogram). Estimated weight by Hadlock method is 1610 grams. Amniotic fluid volume is normal, with an ALEYDA of 17.2. The cervix measures 4.3 cm translabially. IMPRESSION: SINGLE VIABLE INTRAUTERINE GESTATION, WITH EXPECTED GROWTH FROM PREVIOUS SONOGRAM. ESTIMATED WEIGHT BY HADLOCK METHOD OF 1610 GRAMS. A 4 CM CERVIX. NORMAL ALEYDA. TD: 03/30/2018 17:08 MTDD
--- NOTE | 2018-04-15 06:48 | Ultrasound Preliminary Report ---
Exam: US OB F/U OR REPEAT IMPRESSION: 1. Clayton live intrauterine with gestational age 30 weeks 2 days based on current US. 2. Estimated weight is within expected limits for assigned dating. 3. Normal interval growth compared to 02/25/2018. 4. Cervical length 5.3 cm on endovaginal exam. [facility] SITE ID: [id number]
== END 2018-03-30 16:17 | disposition home or self-care (01) ==
LOC: WFO 12:22 → FBP 12:24 → WFO 16:17
PROVIDERS: ATTEND Obstetrics & Gynecology
DX: O46.93 Antepartum hemorrhage, unspecified, third trimester (principal); O99.013 Anemia complicating pregnancy, third trimester; D64.9 Anemia, unspecified; Z86.19 Personal history of other infectious and parasitic diseases; Z3A.29 29 weeks gestation of pregnancy
CPT/HCPCS: 76816; 81001; 81003; 84112; 87086; 87491; 87591; 99214

== ENCOUNTER 2018-04-01 13:42 | Outpatient (CLI) | payer OTHER | END 2018-04-01 13:43 | disposition home or self-care (01) | LOC: LAB.R 13:42 | PROVIDERS: ATTEND Obstetrics & Gynecology | DX: R82.90 Unspecified abnormal findings in urine (principal); O47.03 False labor before 37 completed weeks of gestation, third trimester; N76.0 Acute vaginitis | CPT/HCPCS: 82731; 87086; 87480; 87510; 87660 ==

== ENCOUNTER 2018-04-14 14:32 | Outpatient (CLI) | payer OTHER | END 2018-04-14 14:33 | disposition home or self-care (01) | LOC: LAB.R 14:32 | PROVIDERS: ATTEND Obstetrics & Gynecology | DX: Z11.3 Encounter for screening for infections with a predominantly sexual mode of transmission (principal) | CPT/HCPCS: 87491; 87591 ==

== ENCOUNTER 2018-04-14 15:09 | Observation (INO) | payer OTHER ==
[2018-04-14 15:28] LABS: BASOPHILS % (AUTO) 0.4 %; EOSINOPHILS # (AUTO) 0.1 10^3/uL (0.0-0.7); HGB - HEMOGLOBIN 8.6 g/dL (12.0-16.0); LYMPHOCYTES # (AUTO) 1.6 10^3/uL (1.5-3.5); LYMPHOCYTES % (AUTO) 19.7 %; MEAN CORPUSCULAR HEMOGLOBIN 27.4 pg (27.0-31.0); MEAN CORPUSCULAR HGB CONC 31.8 g/dL (32.0-36.0); MEAN PLATELET VOLUME 6.9 fL (7.9-10.8); MONOCYTES # (AUTO) 0.5 10^3/uL (0.0-1.0); MONOCYTES % (AUTO) 6.6 %; NEUTROPHILS # (AUTO) 5.9 10^3/uL (1.5-6.6); NEUTROPHILS % (AUTO) 72.3 %; PLT - PLATELET COUNT 322 10^3/uL (130-450); RED BLOOD COUNT 3.15 10^6/uL (4.20-5.40); RED CELL DISTRIBUTION WIDTH 16.6 % (12.0-15.0); WHITE BLOOD COUNT 8.2 x10^3/uL (4.8-10.8)
[2018-04-14 16:26] LABS: BILIRUBIN,URINE NEGATIVE (NEGATIVE); GLUCOSE, URINE (UA) NEGATIVE (NEGATIVE); KETONES,URINE (UA) TRACE mg/dL (NEGATIVE); LEUKOCYTE ESTERASE, URINE NEGATIVE (NEGATIVE); NITRITE,URINE NEGATIVE (NEGATIVE); OCCULT BLOOD,URINE NEGATIVE (NEGATIVE); PROTEIN,URINE NEGATIVE (NEGATIVE); UROBILINOGEN,URINE 0.2 (NORMAL) E.U./dL (NORMAL)
[2018-04-14 16:27] LABS: CLARITY,URINE CLEAR (CLEAR)
[2018-04-14] MEDS ORDERED: TERBUTALINE 1 MG/ML VIAL SUBQ ONE ×2 (18:15→21:22)
[2018-04-14] MEDS ORDERED: LACTATED RINGERS 1,000 ML IV ONE (18:16)
[2018-04-14] MEDS ORDERED: SODIUM CHLORIDE FLUSH 0.9% 10 ML SYRINGE ONE (18:38)
[2018-04-14] MEDS ORDERED: SODIUM CHLORIDE FLUSH 0.9% 10 ML SYRINGE IVP PRN (18:39)
[2018-04-14] MEDS ORDERED: LACTATED RINGERS 500 ML IV ONE (21:17)
[2018-04-14] MEDS ORDERED: BETAMETHASONE 30 MG/5 ML VIAL ONE (21:22)
[2018-04-14] MEDS ORDERED: PROMETHAZINE 25 MG/1 ML VIAL IM STA (22:20)
[2018-04-14] MEDS ORDERED: ZOLPIDEM 5 MG TABLET PO ONE (22:47)
[2018-04-15] MEDS ORDERED: TERBUTALINE 1 MG/ML VIAL SUBQ ONE (04:05)
--- NOTE | 2018-04-15 06:48 | Ultrasound Preliminary Report ---
Exam: US OB TRANSVAGINAL IMPRESSION: 1. Clayton live intrauterine with gestational age 30 weeks 2 days based on current US. 2. Estimated weight is within expected limits for assigned dating. 3. Normal interval growth compared to 02/25/2018. 4. Cervical length 5.3 cm on endovaginal exam. [facility] SITE ID: [id number]
--- NOTE | 2018-04-15 06:48 | Ultrasound Report ---
EXAM: FOLLOW-UP OBSTETRICAL ULTRASOUND EXAM DATE: 03/30/2018 03:24 PM. CLINICAL HISTORY: . growth and cervical length. COMPARISON: 02/25/2018. TECHNIQUE: Real-time sonographic evaluation of the fetus performed by the inspector fibrous wallboard. Additional tra nsvaginal imaging to more accurately evaluate cervical length/placental position/etc. Multiple repres entative static images were saved for review. DATING: EGA 29 weeks 4 days with LUZ 06/11/2018 based on prior ultrasound. EGA 30 weeks 2 days with LUZ 06/06/2018 based on the current ultrasound. GENERAL EVALUATION Clayton . Cardiac activity: 142 bpm. movement: Visualized. Presentation: Cephalic. Placenta: Posterior position. Amniotic fluid: Normal. ALEYDA 17.2 cm. MVP 5.2 cm. BIOMETRY Bi-Parietal Diameter (BPD): 7.8 cm, 31 weeks 1 day Head Circumference (HC): 27.6 cm, 30 weeks 1 day Abdominal Circumference (AC): 26.7 cm, 30 weeks 6 days Femur Length (FL): 5.8 cm, 30 weeks 3 days Estimated Weight: 1610 gm, 66 percentile. MATERNAL STRUCTURES Cervical length 5.3 cm on endovaginal images. IMPRESSION: 1. Clayton live intrauterine with gestational age 30 weeks 2 days based on current US. 2. Estimated weight is within expected limits for assigned dating. 3. Normal interval growth compared to 02/25/2018. 4. Cervical length 5.3 cm on endovaginal exam. [facility] Referring Provider Line: [phone] SITE ID: [id number]
--- NOTE | 2018-04-15 10:03 | HISTORY & PHYSICAL EXAMINATION ---
DATE OF SERVICE: Physician: Faizan Mayer MD DIAGNOSES 1. A 31-week, 2-day gestation. 2. Unremitting uterine contractions consistent with labor. 3. Vaginal discharge. 4. Social crisis. 5. Anxiety and depression 6. History of pyelonephritis 7. History of STI HISTORY OF PRESENT ILLNESS: The patient is a 22-year-old , 4, para 3-0-0-3, [place] who receives regular care at [facility]. On the day of admission, she was seen n the office and noted decreased movement. Subsequently, she went to Labor and Delivery for NST, which was reactive, but noted contractions every 5 minutes. fibronectin was accomplished, which was negative. I did a serial exam on the patient and she was essentially unchanged cervix between 3 in the afternoon and 8 p.m. -- 1 cm, 30% effaced, -3 station, posterior & firm . She continued to have increasing intensity contractions. Urinalysis showed ketones, but no evidence of UTI. She was begun on IV hydration and given a series of 2 terbutaline injections. This slowed the contractions, but did not completely eliminate them. Patient denies abdominal trauma or recent intercourse. She has no UTI symptoms, fevers, chills or recent illness. Patient has a prior history of pyelonephritis. Patient has been infected with chlamydia/ gonorrhea by her current In the past. Additionally, she is profoundly anemic with a hemoglobin of 8.6. She was receiving iron transfusions, but complained that they caused syncope and the last one was terminated. She has begun oral iron. One of the nursing members reports that she is not taking the oral iron as prescribed because it made her feel different. Patient does not have a family history of thalassemia, hemorrhage. No reported acute or chronic blood loss problems. . She is currently in the middle of a personal crisis; her is active duty [employer] personnel and has been completely nonsupportive, precipitating a divorce. She has 3 special needs children at home. She has a long-term history of anxiety and depression. She currently sees Dr. Araujo, psychiatrist at [facility]. She is also known to the [facility]. PAST MEDICAL HISTORY: Appendectomy in 2013. ALLERGIES: THE PATIENT HAS NUMEROUS SENSITIVITIES. MEDICATIONS: vitamins and supplemental iron. FAMILY HISTORY: No known inheritable diseases or aneuploidy. SOCIAL HISTORY: [place] dependent. 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 . Nonsmoker. Denies drug or alcohol use. REVIEW OF SYSTEMS CONSTITUTIONAL: Malaise, weakness. HEENT: Negative. RESPIRATORY: Negative. CARDIAC: Reported syncope before. GASTROINTESTINAL: Negative. NEUROLOGIC: Negative. DERMATOLOGIC: Negative. PSYCH: Reference HPI. PHYSICAL EXAMINATION VITAL SIGNS: Posted. GENERAL: Anxious, lying on stretcher, alert, oriented, cooperative. HEENT: Supple neck. No thyromegaly. Moist mucous membranes. LUNGS: Clear to auscultation. CARDIAC: Flow murmur, probably secondary to terbutaline, and elevated pulse. ABDOMEN: No organomegaly. No tenderness. UTERUS: Mild contractions corresponding to the tracing originally; currently quiescent. EXTERNAL GENITALIA: Shaven, no lesions. VAGINA: No fluid or foul discharge. Cervix 1 cm, posterior, 25% effaced, -2 station. EXTREMITIES: No needle wilks. Moves all extremities well. NEUROLOGIC: Grossly intact. PSYCHOLOGIC: Anxiety. ASSESSMENT: Patient has uterine contractions but is at low risk of delivery for the next 10 days.. Her social situation stoking her anxiety is complex and requires assessment. Her anxiety and resultant depression are debilitating. Request psych records from Dr. Araujo. Compliance is a problem. She reports numerous sensitivities, many of which may be imagined or just simple side effects to medications. Anxiety fuels her intolerance of medication and reluctance to follow medical instruction. Social work assessment needs to be conducted. Discussed patient's anemia with Dr. Villareal, at this point laboratory workup of anemia is not really possible. There is no physical or historical evidence of excessive bleeding episodes. Her GI tract is intact and, therefore, oral iron should effectively raise her hemoglobin. Failure of oral iron response brings in a question her dietary habits and her compliance with oral iron. Patient is aware of the dangers of low hemoglobin and the devastating & potentially life-threatening effect of a hemorrhage. In fact, she had 1 prior obstetrical hemorrhage. In short, her anxiety, lack of candor and pre-conceptions have frustrated our ability to care for her. The social and psychological barriers must be broken PLAN: * Admitted the patient in observation and believe that this is possibly false labor. * Offered therapeutic rest, but patient declined due to the perceived side effects of morphine and Dilaudid. Therefore, Alejandro Lemus mg was given, which is not as effective. Ambien did not provide the sedation effect desired and Resulted in the patient awakening at 4 a.m. with perceived contractions. * Betamethasone 12 mg x2 doses. * Cervical length. * Trimming Cutter complete assessment. * Fermenting Cellar Dropper complete assessment. * Anticipate discharge on Wednesday. I will sign out to Dr. Mittal, the physician coming on shift. TD: 04/15/2018 09:06 MTDRina
[2018-04-15 11:19] VITALS: BP 104/44
== END 2018-04-15 14:55 | disposition home or self-care (01) ==
LOC: LAB 15:09 → FBP 15:17 → LAB 22:16 → FBP 22:17
PROVIDERS: ADMIT Obstetrics & Gynecology; ATTEND Obstetrics & Gynecology
DX: O47.03 False labor before 37 completed weeks of gestation, third trimester (principal); O36.8130 Decreased fetal movements, third trimester, not applicable or unspecified; O99.013 Anemia complicating pregnancy, third trimester; D64.9 Anemia, unspecified; Z3A.31 31 weeks gestation of pregnancy; Z11.3 Encounter for screening for infections with a predominantly sexual mode of transmission; O99.343 Other mental disorders complicating pregnancy, third trimester; F32.9 Major depressive disorder, single episode, unspecified; F41.9 Anxiety disorder, unspecified; Z87.440 Personal history of urinary (tract) infections; Z86.19 Personal history of other infectious and parasitic diseases; Z63.5 Disruption of family by separation and divorce; Z88.9 Allergy status to unspecified drugs, medicaments and biological substances
CPT/HCPCS: 36415; 76817; 81003; 82731; 85025; 87491; 87591; 96360; 96361; 96372; 99212; 99213; A9270; G0378; J7120; 81001; 87086

== ENCOUNTER 2018-04-15 20:58 | Outpatient (CLI) | payer OTHER ==
[2018-04-15] MEDS ORDERED: BETAMETHASONE 30 MG/5 ML VIAL IM ONE (21:21)
[2018-04-15 23:09] VITALS: BP 110/67
== END 2018-04-15 21:55 | disposition home or self-care (01) ==
LOC: WFO 20:58 → FBP 21:04 → WFO 21:55
PROVIDERS: ATTEND Obstetrics & Gynecology
DX: O26.893 Other specified pregnancy related conditions, third trimester (principal); Z3A.31 31 weeks gestation of pregnancy
CPT/HCPCS: 99212

== ENCOUNTER 2018-04-20 16:50 | Outpatient (CLI) | payer OTHER ==
[2018-04-20] MEDS ORDERED: SODIUM CHLORIDE FLUSH 0.9% 10 ML SYRINGE ONE (17:33)
[2018-04-20 18:09] VITALS: BP 110/53
[2018-04-20 18:25] LABS: RUPTURE OF MEMBRANES PLUS NEGATIVE (NEGATIVE)
--- NOTE | 2018-04-20 19:00 | PROVIDER PROGRESS NOTE ---
Subjective - Prog Note Date Prog Note Date: 04/20/18 Prog Note Time: 19:00 - Subjective Pt reports feeling: No change Subjective: Bettina Deleon is a 22-year-old 4 para 3 woman at 31 weeks gestation who reports a runny vaginal discharge and suspects ruptured membranes. She reports no contractions other than the usual [place]. She has no fevers, abdominal pain or UTI symptoms. She reports no vulvar lesions. She reports not having intercourse for over a month with her , soon to BX. Objective - Vital Signs/Intake & Output Vital Signs: Vital Signs x48h Temp Pulse Resp BP Pulse Ox 04/20/18 17:39 99.1 F 121 H 20 110/53 L 97 - Lab Results Other Labs: Lab Results x24hrs 04/20/18 Range/Units 17:20 Membranes Rupture NEGATIVE (NEGATIVE) Physical Exam - Physical Exam General Appearance: no apparent distress Eyes, Ears, Nose, Throat Exam: pale conjunctivae (R) Gastrointestinal/Abdominal: Normal bowel sounds, Non tender, Soft, No organomegaly Pelvic Exam: no cerv. motion tender, cervicitis (Cervical inflammation; cervical exam unchanged long, -3 station 1 cm dilation firm consistency), discharge (Copious curd-like yellow tinged vaginal discharge with associated vulvar rash typical of Cecily infection; affirm and GC/chlamydia sent; ROM plus negative) Extremity: normal range of motion, no pedal edema Skin Exam: warm/dry, pallor Assessment/Plan - Assessment/Plan Assessment: 1. Patient has an obvious severe candidal infection. Treatment is necessary. No evidence of other infections or UTI. 2. Patient's membranes are not ruptured and she is not in labor. Cervical exam is the same as last week and she is not in danger of delivery. 3. Repeat cultures taken to screen for gonorrhea/chlamydia. 4. Patient reports compliance with supplemental oral iron, ferric sulfate 325 twice a day 5. Patient is beginning to make headway in stabilizing her social situation. She is in contact with the [employer] but it has been legal department and they are considering measures to force her to be more supportive. Plan: 1. Monistat 7 - 1 applicator nightly with additional cream applied to the vulva. 2. Patient to keep scheduled appointment on Wednesday with Dr. Brandi Hay. 3. Patient to continue to work with [employer] to obtain more support and child development professor from her . 4. Patient urged to continue working with Dr. Rod, psychiatry DIGE chart is down, both in office and labor and delivery. Fax copy of the above note to be sent to Dr. Hay transfer text
== END 2018-04-20 18:50 | disposition home or self-care (01) ==
LOC: WFO 16:50 → FBP 16:51 → WFO 18:50
PROVIDERS: ATTEND Obstetrics & Gynecology
DX: O98.813 Other maternal infectious and parasitic diseases complicating pregnancy, third trimester (principal); B37.3 Candidiasis of vulva and vagina; Z3A.32 32 weeks gestation of pregnancy; Z79.899 Other long term (current) drug therapy; Z60.9 Problem related to social environment, unspecified
CPT/HCPCS: 84112; 87480; 87491; 87510; 87591; 87660; 99214

== ENCOUNTER 2018-04-22 14:49 | Outpatient (CLI) | payer OTHER | END 2018-04-22 14:50 | disposition home or self-care (01) | LOC: LAB.R 14:49 | PROVIDERS: ATTEND Obstetrics & Gynecology | DX: R30.0 Dysuria (principal) | CPT/HCPCS: 87086 ==

== ENCOUNTER 2018-04-28 15:13 | Outpatient (CLI) | payer OTHER ==
[2018-04-28 16:06] LABS: BASOPHILS % (AUTO) 0.3 %; EOSINOPHILS # (AUTO) 0.1 10^3/uL (0.0-0.7); EOSINOPHILS % (AUTO) 1.4 %; HGB - HEMOGLOBIN 8.4 g/dL (12.0-16.0); LYMPHOCYTES # (AUTO) 1.6 10^3/uL (1.5-3.5); LYMPHOCYTES % (AUTO) 16.3 %; MEAN CORPUSCULAR HGB CONC 32.2 g/dL (32.0-36.0); MEAN CORPUSCULAR VOLUME 83.9 fL (81.0-99.0); MEAN PLATELET VOLUME 7.2 fL (7.9-10.8); MONOCYTES # (AUTO) 0.6 10^3/uL (0.0-1.0); MONOCYTES % (AUTO) 6.3 %; NEUTROPHILS # (AUTO) 7.6 10^3/uL (1.5-6.6); NEUTROPHILS % (AUTO) 75.7 %; PLT - PLATELET COUNT 290 10^3/uL (130-450); RED CELL DISTRIBUTION WIDTH 18.5 % (12.0-15.0); WHITE BLOOD COUNT 10.1 x10^3/uL (4.8-10.8)
[2018-04-28 17:05] LABS: PLATELET ESTIMATE, MANUAL NORMAL (130-450,000) (NORMAL); PLATELET MORPHOLOGY 1+ GIANT PLATELETS (NORMAL)
== END 2018-04-28 15:14 | disposition home or self-care (01) ==
LOC: LAB 15:13
PROVIDERS: ATTEND Obstetrics & Gynecology
DX: O99.013 Anemia complicating pregnancy, third trimester (principal)
CPT/HCPCS: 36415; 85025

== ENCOUNTER 2018-05-10 12:57 | Outpatient (CLI) | payer OTHER ==
[2018-05-10 13:26] LABS: BILIRUBIN,URINE NEGATIVE (NEGATIVE); GLUCOSE, URINE (UA) NEGATIVE (NEGATIVE); KETONES,URINE (UA) NEGATIVE (NEGATIVE); LEUKOCYTE ESTERASE, URINE MODERATE (NEGATIVE); NITRITE,URINE NEGATIVE (NEGATIVE); OCCULT BLOOD,URINE TRACE-INTA (NEGATIVE); PH,URINE 6.5 PH (5.0-7.5); PROTEIN,URINE TRACE mg/dL (NEGATIVE); UROBILINOGEN,URINE 0.2 (NORMAL) E.U./dL (NORMAL)
[2018-05-10 13:40] LABS: CLARITY,URINE HAZY (CLEAR)
[2018-05-10 13:41] LABS: BACTERIA,URINE None Seen /HPF (None Seen); SQUAMOUS EPITHELIAL CELL,UR MANY Squamous (<= Few)
[2018-05-10] MEDS: TERBUTALINE 1 MG/ML VIAL SUBQ SCH ×2 (14:49→15:25)
[2018-05-10] MEDS: TERBUTALINE 1 MG/ML VIAL SUBQ ONE ×2 (15:48→15:55)
--- NOTE | 2018-05-10 17:34 | PROVIDER PROGRESS NOTE ---
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 Also c/o suprapubic pain not associated with contractions that is constant in nature and BL SI joint pain mod-sev in nature. Patient agrees to MS exam and OMT. No contraindications. Oral hydration given on FBP. Pateint states she got steroid series at 29 weeks for FLM. O: VSS/AF RNST with regular contractions q3-6 min. Given terbulatine series and contractions stopped. Cx FT/Long/High UA Negative for nitrites, many epi Wet Prep to Lab: Negative for Trich/BV/Yeast OMT Exam/Treatment: Exam: Cervical: C4 RR, rest of Cervical spine RL Thoracic: SD T2-10 Lumbar:L3 RR, L45 RL Pelvis: Right inominate inferior Treatment: Cervical: HVLA Thoracic: HVLA Lumbar: HVLA Pelvis: [employer] Suprapubic pain resolved. SI joint pain BL markedly less, told residual pain would resolve over next several days to week. ROM restored. A/P: # contractions: Resolved with p.o. hydration and terbutaline series. # Somatic Dysfuntion cervical, thoracic, lumbar spine and pelvis.: OMT to 4 body regions with resolution of dysfuction. # Labor and FKC precautions # F/U OB clinic as scheduled. Objective - Vital Signs/Intake & Output Vital Signs: Vital Signs x48h Temp Pulse Resp BP Pulse Ox 05/10/18 13:26 36.8 C 120 H 16 104/64 99 - Lab Results Other Labs: Lab Results x24hrs 05/10/18 Range/Units 13:05 Urine Color YELLOW Urine Clarity HAZY (CLEAR) Urine pH 6.5 (5.0-7.5) PH Ur Specific [place] 1.015 (1.002-1.030) Urine Protein TRACE (NEGATIVE) mg/dL Urine Glucose (UA) NEGATIVE (NEGATIVE) mg/dL Urine Ketones NEGATIVE (NEGATIVE) mg/dL Urine Occult Blood TRACE-INTA (NEGATIVE) Urine Nitrite NEGATIVE (NEGATIVE) Urine Bilirubin NEGATIVE (NEGATIVE) Urine Urobilinogen 0.2 (NORMAL) (NORMAL) E.U./dL Ur Leukocyte Esterase MODERATE H (NEGATIVE) Urine RBC 6-10 H (0-5) /HPF Urine WBC 6-10 H (0-5) /HPF Ur Squamous Epith Cells MANY Squamous H (<= Few) Urine Bacteria None Seen (None Seen) /HPF Ur Microscopic Review INDICATED Urine Culture Comments NOT INDICATED
[2018-05-10 18:35] VITALS: BP 106/59
== END 2018-05-10 17:15 | disposition home or self-care (01) ==
LOC: WFO 12:57 → FBP 12:58 → WFO 17:15
PROVIDERS: ATTEND Obstetrics & Gynecology
DX: O47.03 False labor before 37 completed weeks of gestation, third trimester (principal); Z3A.35 35 weeks gestation of pregnancy; O99.89 Other specified diseases and conditions complicating pregnancy, childbirth and the puerperium; M99.01 Segmental and somatic dysfunction of cervical region; M99.03 Segmental and somatic dysfunction of lumbar region; M99.05 Segmental and somatic dysfunction of pelvic region; M99.02 Segmental and somatic dysfunction of thoracic region
CPT/HCPCS: 81001; 81003; 86628; 87086; 87210; 87480; 87510; 87660; 87797; 96372; 99214

== ENCOUNTER 2018-05-20 15:38 | Outpatient (CLI) | payer OTHER ==
--- NOTE | 2018-05-21 15:41 | Ultrasound Report ---
Procedure Date: 05/20/2018 Accession Number: [id number] / [id number] Procedure: US - OB F/U or Repeat CPT Code: FULL RESULT: EXAM: FOLLOW-UP OBSTETRICAL ULTRASOUND EXAM DATE: 05/20/2018 04:43 PM. CLINICAL HISTORY: UTERINE SIZE-DATA Discrepancy, third TRIMESTER. COMPARISON: 04/15/2018. TECHNIQUE: Real-time sonographic evaluation of the fetus performed by the wind turbine blade repair technician. . Multiple operations representative static images were saved for review. DATING: Established EGA 36 weeks 3 days with LUZ 06/14/2018 based on initial ultrasound. GENERAL EVALUATION Clayton . Cardiac activity: 139 bpm. movement is noted. Presentation: Transverse Placenta: Posterior position. Amniotic fluid: Normal. ALEYDA 18.2 cm. BIOMETRY Bi-Parietal Diameter (BPD): 9.7 cm, 39 weeks 4 days Head Circumference (HC): 34.4 cm, 39 weeks 5 days Abdominal Circumference (AC): 35.7 cm, 39 weeks 5 days Femur Length (FL): 7.7 cm, 39 weeks 1 day Estimated Weight: 3818 gm, greater than 97th percentile for clinical dates of 36 weeks 3 days. ANATOMY Not assessed. MATERNAL STRUCTURES Closed cervix measured at 5.1 cm IMPRESSION: Discrepant dating with current age estimation at 39 weeks 3 days and LUZ of 05/23/2018 versus expected age of 36 weeks 3 days with LUZ of 06/14/2018. EFW of 3818 g greater than the 97th percentile. Appropriate amniotic fluid. Closed cervix. Transverse positioning with head toward the maternal right. RADIA
== END 2018-05-20 15:39 | disposition home or self-care (01) ==
LOC: DI 15:38
PROVIDERS: ATTEND Obstetrics & Gynecology
DX: O26.843 Uterine size-date discrepancy, third trimester (principal)
CPT/HCPCS: 76816

== ENCOUNTER 2018-05-22 21:43 | Observation (INO) | payer OTHER ==
[2018-05-22 23:09] LABS: BILIRUBIN,URINE NEGATIVE (NEGATIVE); GLUCOSE, URINE (UA) NEGATIVE (NEGATIVE); KETONES,URINE (UA) TRACE mg/dL (NEGATIVE); LEUKOCYTE ESTERASE, URINE NEGATIVE (NEGATIVE); NITRITE,URINE NEGATIVE (NEGATIVE); OCCULT BLOOD,URINE NEGATIVE (NEGATIVE); PH,URINE 6.5 PH (5.0-7.5); PROTEIN,URINE TRACE mg/dL (NEGATIVE); UROBILINOGEN,URINE 1 (NORMAL) E.U./dL (NORMAL)
[2018-05-22 23:11] LABS: CLARITY,URINE CLEAR (CLEAR)
[2018-05-22 23:17] LABS: BACTERIA,URINE Few /HPF (None Seen); MUCUS,URINE Moderate Strands; RBC,URINE 0-5 /HPF (0-5); SQUAMOUS EPITHELIAL CELL,UR MOD Squamous (<= Few)
[2018-05-22] MEDS ORDERED: LACTATED RINGERS 1,000 ML IV ONE ×2 (23:31→23:50)
[2018-05-22] MEDS ORDERED: SODIUM CHLORIDE FLUSH 0.9% 10 ML SYRINGE ONE (23:32)
[2018-05-23] MEDS ORDERED: LACTATED RINGERS 1,000 ML IV ONE (01:18)
[2018-05-23] MEDS ORDERED: SODIUM CHLORIDE FLUSH 0.9% 10 ML SYRINGE IVP PRN (01:26)
[2018-05-23] MEDS ORDERED: fentaNYL 100 MCG/2 ML VIAL IVP PRN (01:26)
[2018-05-23] MEDS ORDERED: ONDANSETRON 4 MG/2 ML VIAL IVP PRN (01:26)
[2018-05-23] MEDS ORDERED: PENICILLIN G POTASSIUM 5,000,000 UNIT in SODIUM CHLORIDE 0.9% MINIBAG 100 ML IV ONE (01:26)
[2018-05-23] MEDS ORDERED: fentaNYL 100 MCG/2 ML VIAL ONE (01:27)
[2018-05-23 01:43] LABS: BASOPHILS % (AUTO) 0.4 %; EOSINOPHILS # (AUTO) 0.1 10^3/uL (0.0-0.7); EOSINOPHILS % (AUTO) 0.8 %; LYMPHOCYTES # (AUTO) 1.7 10^3/uL (1.5-3.5); MEAN CORPUSCULAR HEMOGLOBIN 26.7 pg (27.0-31.0); MEAN CORPUSCULAR HGB CONC 32.5 g/dL (32.0-36.0); MEAN CORPUSCULAR VOLUME 82.2 fL (81.0-99.0); MEAN PLATELET VOLUME 7.2 fL (7.9-10.8); MONOCYTES # (AUTO) 0.6 10^3/uL (0.0-1.0); MONOCYTES % (AUTO) 7.7 %; NEUTROPHILS # (AUTO) 5.2 10^3/uL (1.5-6.6); NEUTROPHILS % (AUTO) 69.1 %; PLT - PLATELET COUNT 305 10^3/uL (130-450); RED BLOOD COUNT 2.98 10^6/uL (4.20-5.40); RED CELL DISTRIBUTION WIDTH 19.1 % (12.0-15.0); WHITE BLOOD COUNT 7.6 x10^3/uL (4.8-10.8)
[2018-05-23] MEDS ORDERED: LACTATED RINGERS 1,000 ML IV SCH (02:00)
[2018-05-23] MEDS ORDERED: ACETAMINOPHEN 325 MG TABLET PO SCH (02:00)
[2018-05-23] MEDS ORDERED: PENICILLIN G POTASSIUM 2,500,000 UNIT in SODIUM CHLORIDE 0.9% 100ML 100 ML IV SCH (07:00)
--- NOTE | 2018-05-23 08:14 | PROVIDER PROGRESS NOTE ---
Labor Progress Note - Uterine Monitoring Uterine Monitoring Mode: positive: External toco, Palpation Contraction Frequency (min/apart): irreg Contraction Intensity: positive: Mild Uterine Resting Tone: positive: Soft - Monitoring Monitor Mode: positive: External ultrasound Heart Rate Baseline: 130 Heart Rate Variability: positive: Moderate (6-25 bmp) Accelerations: positive: Present, 15x15 Decelerations: positive: None Strip Review: positive: Category I - Vaginal Exam Dilation (in cm): 1 cm Effacement (%): 20% Station: -3 Cervical Position: Posterior - Labor Progress Note Labor Progress Note/Additional Text: After IV fluid hydration patient's contraction pattern became irregular and mild. There has been no cervical change. Station is -3 and vertex palpated. Jalil maneuvers find fetus to be LGA, consistent with her ultrasound study on Wednesday (97th percentile). Maternal anemia remains a concern. Patient states that she is taking both vitamins and supplemental iron as directed. There is no obvious source of blood loss. She had a recent maternal- evaluation. She should respond to oral iron supplementation. However, transfusion in labor may be necessary to give a adequate buffer against hemorrhage. Currently the patient is not in labor. Premature transfusion may have limited usefulness balanced against infectious transfusion risks. Plan to discharge patient this morning.
[2018-05-23] MEDS ORDERED: SODIUM CHLORIDE FLUSH 0.9% 10 ML SYRINGE IVP SCH (09:00)
--- NOTE | 2018-05-23 09:00 | CONSULTATION NOTE ---
DATE OF SERVICE: 05/23/2018 Physician: Faizan Mayer MD OBSERVATION ADMISSION NOTE DIAGNOSES 1. 36-week 6-day gestation. 2. Oblique lie; unstable. 3. Regular uterine contractions. 4. Maternal GBS status positive. 5. Mild anemia. 6. Rubella nonimmune. 7. LGA Fetus HISTORY OF PRESENT ILLNESS: Patient is a 22-year-old , 4, para 3-0-0-3 woman who reports regular uterine contractions beginning at 1600 hours on Wednesday, that have steadily increased in intensity and frequency. She has no suspicion of leaking fluid. She has no signs or symptoms of preeclampsia. On initial triage, examination, the patient was noted to be back down transverse, with regular uterine contractions. She is noted to have anemia and was given oral iron supplementation initially. She then received parenteral iron gluconate infusion, afterwhich she developed syncopal symptomsPatient reports post-treatment syncope. Syncope was not observed or reported in the nursing record.She was then discontinued from parenteral iron, and sent to Maternal Medicine for consultation. MFM favored oral iron supplementation but believed she could return to parenteral iron if necessary. At the time of initial labor evaluation, if anemia is low , transfusion packed red blood cells should be accomplished Patient has had regular care at [facility]. She has had numerous visits to Labor and Delivery for nausea and vomiting, uterine contractions. Patient has a history of pyelonephritis, and was begun on amoxicillin prophylaxis earlier in [facility]. She has been seen for multiple incidence of uterine contractions. She has a history of HSV 2 and is currently on acyclovir prophylaxis starting at 36 weeks. No active lesions reported. She has difficulty controlling anxiety and her difficult social problems & circumstance have exacerbated this problem. Compliance in following instructions, advice and medications is an issue. During the , the patient was noted to have trichomoniasis, then reinfected by her . Patient's began living with another woman and they were in the process of a divorce. He was her only support person and source of childcare. She has 3 children at home all of which have special needs. [employer] commands stepped in and now her provides physical and personal support. She is now reconsidering divorce. LABORATORY: On baseline laboratories, initial GC/chlamydia negative. Blood type A positive, antibody negative, rubella nonimmune. Quad strength screen normal. Urine culture negative. RPR negative. PAST MEDICAL HISTORY: No chronic disease, history noted. PAST SURGICAL HISTORY: None. ALLERGIES 1. SENSITIVITY TO MORPHINE (ITCHING). 2. SENSITIVITY TO BEE STINGS, OMER, NUTS, AND PINEAPPLE. MEDICATIONS 1. vitamins with iron. 2. Ferrous sulfate 325 mg b.i.d. FAMILY HISTORY: No inheritable diseases noted. SOCIAL HISTORY: [place] dependent currently. No tobacco, alcohol use, or drug use noted. PHYSICAL EXAMINATION GENERAL: Lying comfortably in bed, quiet. VITAL SIGNS: Temperature 98.8, pulse 94, blood pressure 107/64, respiratory rate 20, oxygen saturation 95. HEENT Supple neck. No thyromegaly. Moist mucous membranes. LUNGS: Clear. (as reported by initial nursing exam). CARDIAC: Regular. No murmur, no gallop, as reported by initial nursing exam. ABDOMEN: No hepatosplenomegaly. No tenderness. Stria. UTERUS: Contractions every 3-5 minutes, moderate intensity. Normal resting tone. Head down oblique, back right. EXTERNAL GENITALIA: Shaven. No lesions. VAGINA: No blood or discharge. CERVIX: 25% effaced, 1 cm, soft, high. Can feel head, no evidence of ruptured membranes. EXTREMITIES: Moves all 4 extremities well. No pedal edema. NEURO: Neurologically intact. SKIN: No evident lesions. ASSESSMENT: Patient is currently at 36 weeks 6 days' gestation, having regular uterine contractions with no noletab change. Patient's initial evaluation found the lie to be transverse but now is converted to oblique. Patient had a recent ultrasound the documented LGA fetus at 97th percentile. Currently the head is not engaged which raises the possibility of disproportion.Currently patient seems to be having a regular and fairly intense pattern of contractions, and may be in early labor. Giving the instability of her lie, continued observation is warranted, since she may convert back to transverse.. PLAN 1. Observation. 2. IV fluid support. 3. Fentanyl for pain relief. 4. Reevaluation in 6 hours to determine if the patient is in labor. I Offered therapeutic rest but declined. TD: 05/23/2018 01:43 EMILY
[2018-05-23 09:15] VITALS: BP 108/62
== END 2018-05-23 11:10 | disposition home or self-care (01) ==
LOC: WFO 21:43 → FBP 21:44 → WFO 05-23 00:45 → FBP 05-23 00:55
PROVIDERS: ADMIT Obstetrics & Gynecology; ATTEND Obstetrics & Gynecology
DX: O32.2XX0 Maternal care for transverse and oblique lie, not applicable or unspecified (principal); O47.03 False labor before 37 completed weeks of gestation, third trimester; Z3A.36 36 weeks gestation of pregnancy; O99.820 Streptococcus B carrier state complicating pregnancy; O99.013 Anemia complicating pregnancy, third trimester; D64.9 Anemia, unspecified; O36.63X0 Maternal care for excessive fetal growth, third trimester, not applicable or unspecified; Z79.899 Other long term (current) drug therapy; O98.513 Other viral diseases complicating pregnancy, third trimester; B00.9 Herpesviral infection, unspecified; O99.343 Other mental disorders complicating pregnancy, third trimester; F41.9 Anxiety disorder, unspecified; Z91.14 Patient's other noncompliance with medication regimen; Z91.19 Patient's noncompliance with other medical treatment and regimen; Z28.3 Underimmunization status; Z63.0 Problems in relationship with spouse or partner; Z87.440 Personal history of urinary (tract) infections; Z86.19 Personal history of other infectious and parasitic diseases
CPT/HCPCS: 81001; 85025; 96361; 96365; 96366; 96375; 96376; 99213; G0378; J7120; 87086

== ENCOUNTER 2018-05-24 11:45 | Outpatient (CLI) | payer OTHER ==
[2018-05-24 11:58] LABS: BASOPHILS % (AUTO) 0.4 %; EOSINOPHILS # (AUTO) 0.1 10^3/uL (0.0-0.7); EOSINOPHILS % (AUTO) 1.2 %; HGB - HEMOGLOBIN 7.8 g/dL (12.0-16.0); LYMPHOCYTES # (AUTO) 1.1 10^3/uL (1.5-3.5); LYMPHOCYTES % (AUTO) 20.8 %; MEAN CORPUSCULAR HEMOGLOBIN 26.6 pg (27.0-31.0); MEAN CORPUSCULAR HGB CONC 32.2 g/dL (32.0-36.0); MEAN CORPUSCULAR VOLUME 82.5 fL (81.0-99.0); MEAN PLATELET VOLUME 6.6 fL (7.9-10.8); MONOCYTES # (AUTO) 0.5 10^3/uL (0.0-1.0); MONOCYTES % (AUTO) 9.8 %; NEUTROPHILS # (AUTO) 3.6 10^3/uL (1.5-6.6); NEUTROPHILS % (AUTO) 67.8 %; PLT - PLATELET COUNT 272 10^3/uL (130-450); RED BLOOD COUNT 2.93 10^6/uL (4.20-5.40); RED CELL DISTRIBUTION WIDTH 18.7 % (12.0-15.0); WHITE BLOOD COUNT 5.3 x10^3/uL (4.8-10.8)
[2018-05-24 12:20] LABS: % IRON SATURATION 6 % (20-50); IRON 36 ug/dL (28-170); TOTAL IRON BINDING CAPACITY 587 ug/dL (250-450); TRANSFERRIN 419 mg/dL (192-382)
== END 2018-05-24 11:46 | disposition home or self-care (01) ==
LOC: LAB 11:45
PROVIDERS: ATTEND Obstetrics & Gynecology
DX: D64.9 Anemia, unspecified (principal)
CPT/HCPCS: 36415; 82728; 83540; 84466; 85025

== ENCOUNTER 2018-05-26 19:19 | Emergency (ER) | payer OTHER ==
[2018-05-26 19:35] VITALS: BP 107/68
--- NOTE | 2018-05-26 21:28 | ED Physician Documentation ---
History of Present Illness - Stated complaint Stated Complaint: ARM SWOLLEN/37WK OB - Chief complaint Chief Complaint: General - History obtained from History obtained from: Patient, Friend - History of Present Illness Timing: Today Pain level max: 0 Pain level now: 0 Improved by: nothing Worsened by: nothing - Additonal information Additional information: Patient is 37 weeks . States redness and swelling to the R UE for 2 days. States worsening. had an iv in the R hand 2 days ago. No fevers. No vomiting. Review of Systems Constitutional: denies: Fever, Chills Nose: denies: Rhinorrhea / runny nose, Congestion Throat: denies: Sore throat Respiratory: denies: Cough GI: denies: Nausea, Vomiting, Diarrhea : denies: Dysuria Musculoskeletal: denies: Neck pain Neurologic: denies: Headache PD PAST MEDICAL HISTORY - Past Medical History Past Medical History: Yes Cardiovascular: None Respiratory: None, Other Neuro: None Endocrine/Autoimmune: None GI: None : None, Chronic bladder infection HEENT: None Psych: None Musculoskeletal: None Derm: None - Past Surgical History Past Surgical History: Yes General: Appendectomy HEENT: Tonsil/Adenoidectomy - Present Medications Home Medications: Ambulatory Orders Medication Instructions Recorded Confirmed Amox/Clav 875/125 [Augmentin] 1 each PO Q12H #13 tablet 12/08/17 03/09/18 Pnv95/Ferrous Fumarate/FA 1 tab PO DAILY 12/08/17 03/09/18 [ Formula Tablet] Cephalexin [Keflex] 500 mg PO Q6H #28 capsule 05/26/18 predniSONE [Prednisone] 20 mg PO DAILY #5 tablet 05/26/18 - Allergies Allergies/Adverse Reactions: Allergies Allergy/AdvReac Type Severity Reaction Status Date / Time pineapple Allergy Severe Edema Verified 05/26/18 19:35 epinephrine Allergy Unknown Unknown Verified 05/26/18 19:35 morphine Allergy Unknown Verified 05/26/18 19:35 hydromorphone [From Dilaudid] AdvReac Severe Respiratory Verified 05/26/18 19:35 nuts Allergy Severe Hives Uncoded 05/26/18 19:35 ирина, coconut Allergy Hives Uncoded 05/26/18 19:35 - Social History Does the pt smoke?: Yes Smoking Status: Current every day smoker Does the pt drink ETOH?: Yes Does the pt have substance abuse?: No - Immunizations Immunizations are current?: Yes - POLST Patient has POLST: No PD ED PE NORMAL - Vitals Vital signs reviewed: Yes - General General: Alert and oriented X 3, No acute distress - HEENT HEENT: Moist mucous membranes - Neck Neck: Supple, no meningeal sign - Derm Derm: Warm and dry - Extremities Extremities: Other (R arm - medial aspect, distal upper arm - 3x3cm erythema, light pink. no induration or fluctuance. NVI. o/w normal exam.) - Neuro Neuro: Alert and oriented X 3 Results - Vitals Vitals: Oxygen O2 Source Room air PD MEDICAL DECISION MAKING - ED course Complexity details: considered differential, d/w patient, d/w process consultant ED course: Patient is a 22-year-old female with a possible localized allergic reaction versus cellulitis to the right upper extremity. She is 37 weeks , therefore I discussed the case with Dr. Mayer, OB composition roll maker and cutter and we will place her on Keflex and prednisone and see how she progresses. She is well-appearing, nontoxic. No abscess. No fevers. Patient counseled regarding signs and symptoms for which I believe and urgent re-evaluation would be necessary. Patient with good understanding of and agreement to plan and is comfortable going home at this time This document was made in part using voice recognition software. While efforts are made to proofread this document, sound alike and grammatical errors may occur. - Sepsis Event Vital Signs: Oxygen O2 Source Room air Departure - Departure Disposition: 01 Home, Self Care Clinical Impression: Cellulitis Qualifiers: Site of cellulitis: extremity Site of cellulitis of extremity: upper extremity Laterality: right Qualified Code(s): L03.113 - Cellulitis of right upper limb Condition: Good Instructions: ED Infec Skin Cellulitis Follow-Up: Brandi Hay DO [Provider Admit Priv/Credential] - Within 1 week Prescriptions: Cephalexin [Keflex] 500 mg PO Q6H #28 capsule predniSONE [Prednisone] 20 mg PO DAILY #5 tablet Comments: Return if you worsen. Take all antibiotics until gone. I spoke with Dr. Leyla pete. Discharge Date/Time: 05/26/18 21:39
[2018-05-26] MEDS ORDERED: cephALEXin 250 MG CAPSULE PO STA (21:35)
[2018-05-26] MEDS ORDERED: predniSONE 20 MG TABLET PO STA (21:35)
== END 2018-05-26 21:39 | disposition home or self-care (01) ==
LOC: ED 19:19
DX: O99.89 Other specified diseases and conditions complicating pregnancy, childbirth and the puerperium (principal); Z3A.37 37 weeks gestation of pregnancy; F17.200 Nicotine dependence, unspecified, uncomplicated
CPT/HCPCS: 99281; 99283; A9270; J7512

== ENCOUNTER 2018-06-05 13:15 | Outpatient (CLI) | payer OTHER ==
--- NOTE | 2018-06-05 15:37 | Ultrasound Report ---
Procedure Date: 06/05/2018 Accession Number: [id number] / [id number] Procedure: US - OB F/U or Repeat CPT Code: FULL RESULT: EXAM: FOLLOW-UP OBSTETRICAL ULTRASOUND EXAM DATE: 06/05/2018 01:24 PM. CLINICAL HISTORY: Excess growth. COMPARISON: 05/20/2018, 04/15/2018, 03/30/2018, 02/25/2018. TECHNIQUE: Real-time sonographic evaluation of the fetus performed by the wired music operator. Additional transvaginal imaging to more accurately evaluate cervical length/placental position/etc. Multiple policy services representative static images were saved for review. DATING: Established EGA 39 weeks 1 day with LUZ 06/11/2018 based on first ultrasound dated 02/25/2018. EGA 39 weeks 4 days with LUZ 06/08/2018 based on the current ultrasound. GENERAL EVALUATION [place] . Cardiac activity: 139 bpm. movement: Visualized. Presentation: Cephalic. Placenta: Posterior position. Amniotic fluid: Normal. ALEYDA 13.2 cm. MVP 4.0 cm. BIOMETRY Bi-Parietal Diameter (BPD): 9.9 cm, out of range Head Circumference (HC): 34.5 cm, 40 weeks 0 days Abdominal Circumference (AC): 37.3 cm, out of range Femur Length (FL): 7.6 cm, 39 weeks 1 day Estimated Weight: 4149 gm, 94th percentile for 39 weeks 1 day. IMPRESSION: 1. Clayton live intrauterine with gestational age 39 weeks 1 day based on first ultrasound. 2. Estimated weight is greater than expected for assigned dating, at the 94th percentile. The fetus is at risk for macrosomia. 3. Normal amniotic fluid volume. RADIA
== END 2018-06-05 13:16 | disposition home or self-care (01) ==
LOC: DI 13:15
PROVIDERS: ATTEND Obstetrics & Gynecology
DX: O36.63X0 Maternal care for excessive fetal growth, third trimester, not applicable or unspecified (principal); Z3A.39 39 weeks gestation of pregnancy
CPT/HCPCS: 76816

== ENCOUNTER 2018-06-06 20:07 | Inpatient (IN) | payer OTHER ==
--- NOTE | 2018-06-06 13:03 | HISTORY & PHYSICAL EXAMINATION ---
DATE OF SERVICE: 06/06/2018 Physician: Faizan Mayer MD DIAGNOSES 1. A 39-week gestation. 2. Severe anemia (hemoglobin 7.9 grams), not responsive to oral replacement therapy. 3. Macrosomic fetus (4149 grams, 94th percentile), 4. Desires sterilization. 5. History of pyelonephritis. 6. Rubella nonimmune. 7. Psychosocial disruption. 8. Herpes simplex virus history, suppressed with acyclovir. 9. Group B strep positive. HISTORY OF PRESENT ILLNESS: The patient is a 22-year-old 4, para 3-0-0-3 [place] who has been followed at [facility] for severe anemia. We have attempted oral supplementation, which she states she is compliant. She had a prior trial with parental iron, but stated that it made her syncopal, and therefore it was discontinued. She had a consultation with a maternal medicine physician. It was recommended to transfuse her at least 2 units of packed red blood cells prior to delivery/ induction. Reference records and consultation. She has been noted to have fundal size exceeding dates, which triggered a series of ultrasounds that have confirmed LGA fetus. Most recent was on 05 June that documented a 4149 gram fetus at the 94th percentile. Prior to that, fetus was noted to be at the 97th percentile. Her obstetric history is remarkable for hemorrhage as well as cord prolapse. Additionally, throughout this , she has experienced bouts of high anxiety and depression, coupled with social crisis. Her situation is settled a bit, as her has come back to the marriage and is more supportive. She sees Dr. Paulino, psychiatrist at [facility], [place]. PAST MEDICAL/SURGICAL HISTORY: Appendectomy in 2013. ALLERGIES: THE PATIENT HAS NUMEROUS SENSITIZATIONS. MEDICATIONS 1. vitamins. 2. Ferric sulfate 325 one tab 3. Nitrofurantoin 50 mg daily FAMILY HISTORY: No known inheritable diseases or aneuploidy. SOCIAL HISTORY: [employer] dependent. Oyms-ex-hliq mom with 3 special needs children. Social and marital discord as noted before. Nonsmoker. Denies drug or alcohol use. REVIEW OF SYSTEMS CONSTITUTIONAL: Malaise. No fevers, chills. HEENT: Negative. RESPIRATORY: Negative. CARDIOVASCULAR: Negative. GASTROINTESTINAL: Negative. GENITOURINARY: Negative. NEUROLOGIC: Negative. DERMATOLOGIC: Negative. PSYCHIATRIC: Reference HPI. PHYSICAL EXAMINATION GENERAL: Quiet, sitting comfortably on exam table, alert and oriented, cooperative. VITAL SIGNS: Posted. HEENT: Supple neck. No thyromegaly. Moist mucous membranes. Lips pale. LUNGS: Clear to auscultation. CARDIOVASCULAR: Cardiac flow murmur II/. Normal pulse. ABDOMEN: No organomegaly. No tenderness. UTERUS: Large, 43 fundal height. No contractions noted. Vertex. Estimated weight in excess of 9-1/2 pounds. GENITALIA: External genitalia shaven, no lesions. VAGINA: No fluid discharge. Cervix 1 cm, posterior 25%, -2 station. EXTREMITIES: No needle wliks. Moves all extremities well. NEUROLOGIC: Grossly intact. Patellar reflexes 2+ and equal. PSYCHOLOGIC: No overt anxiety at the current time. ASSESSMENT: Patient has severe iron deficiency anemia that has not responded to oral medications. Compliance is in doubt. Hemoglobinemia not suspect. The patient has experienced hemorrhage in the past, and given her low hemoglobin value, hemorrhage could be life threatening. Therefore, predelivery/induction transfusion is advisable, with reserved blood on hand. Given the degree of uterine distention, she is at increased risk of hemorrhage. We discussed these facts in detail. We also discussed the induction in detail, inclusive of its increased risk of section and possibility of blood loss regardless of precautions. section was considered, but she has delivered macrosomic infants in the past, and the estimated weight is not above 4500 grams. Therefore, an attempted induction is reasonable. Given the cervical ripening state, Cervidil will be used for softening. The patient's psychosocial problems seem quiescent at the current time. We will attempt to give her calm and comfort. PLAN: 1. Admit for transfusion of 2 units of packed red blood cells today. Will have 2 units on reserve until we are safely done with the delivery. We will review hemorrhage procedures with nursing. 2. The patient does not wish epidural because her prior epidural was ineffective. Recommended that she talk to Anesthesia, since her induction may be long and uncomfortable. 3. Begin with cervical ripening post-transfusion using Cervidil. TD: 06/06/2018 11:21 EMILY
[~2018-06-06 20:07] MED LIST: ACETAMINOPHEN 325 MG TABLET PO SCH; LACTATED RINGERS 1,000 ML IV SCH; SODIUM CHLORIDE FLUSH 0.9% 10 ML SYRINGE IVP PRN; SODIUM CHLORIDE FLUSH 0.9% 10 ML SYRINGE IVP SCH
[2018-06-06] MEDS ORDERED: LACTATED RINGERS 500 ML IV ONE (20:34)
[2018-06-06 21:06] LABS: BASOPHILS % (AUTO) 0.5 %; EOSINOPHILS # (AUTO) 0.2 10^3/uL (0.0-0.7); EOSINOPHILS % (AUTO) 2.6 %; HGB - HEMOGLOBIN 8.3 g/dL (12.0-16.0); LYMPHOCYTES # (AUTO) 1.7 10^3/uL (1.5-3.5); LYMPHOCYTES % (AUTO) 20.6 %; MEAN CORPUSCULAR HEMOGLOBIN 25.5 pg (27.0-31.0); MEAN CORPUSCULAR HGB CONC 31.7 g/dL (32.0-36.0); MEAN CORPUSCULAR VOLUME 80.4 fL (81.0-99.0); MEAN PLATELET VOLUME 7.4 fL (7.9-10.8); MONOCYTES # (AUTO) 0.5 10^3/uL (0.0-1.0); MONOCYTES % (AUTO) 6.5 %; NEUTROPHILS # (AUTO) 5.7 10^3/uL (1.5-6.6); NEUTROPHILS % (AUTO) 69.8 %; PLT - PLATELET COUNT 277 10^3/uL (130-450); RED BLOOD COUNT 3.25 10^6/uL (4.20-5.40); RED CELL DISTRIBUTION WIDTH 19.1 % (12.0-15.0); WHITE BLOOD COUNT 8.2 x10^3/uL (4.8-10.8)
[2018-06-06] MEDS ORDERED: ALPRAZolam 0.25 MG TABLET PO SCH (22:00)
[2018-06-06] MEDS ORDERED: diphenhydrAMINE 25 MG CAPSULE PO SCH (22:00)
[2018-06-07] MEDS ORDERED: LACTATED RINGERS 500 ML IV ONE (01:25)
[2018-06-07] MEDS: ONDANSETRON 4 MG/2 ML VIAL IVP PRN ×2 (02:21→18:36)
[2018-06-07] MEDS ORDERED: DINOPROSTONE 10 MG SUPP VG ONE (04:56)
[2018-06-07] MEDS ORDERED: PENICILLIN G POTASSIUM 5,000,000 UNIT in SODIUM CHLORIDE 0.9% MINIBAG 100 ML IV ONE (05:00)
[2018-06-07] MEDS: SERTRALINE 50 MG TABLET PO SCH (08:58)
[2018-06-07] MEDS ORDERED: PENICILLIN G POTASSIUM 2,500,000 UNIT in SODIUM CHLORIDE 0.9% 100ML 100 ML IV SCH (09:00)
[2018-06-07] MEDS: fentaNYL 100 MCG/2 ML VIAL IVP PRN ×2 (09:18→14:05)
[2018-06-07] MEDS ORDERED: TERBUTALINE 1 MG/ML VIAL SUBQ ONE ×2 (10:20→10:27)
[2018-06-07 10:31] LABS: BASOPHILS % (AUTO) 0.4 %; EOSINOPHILS # (AUTO) 0.1 10^3/uL (0.0-0.7); EOSINOPHILS % (AUTO) 1.4 %; HGB - HEMOGLOBIN 9.3 g/dL (12.0-16.0); LYMPHOCYTES # (AUTO) 1.2 10^3/uL (1.5-3.5); LYMPHOCYTES % (AUTO) 13.7 %; MEAN CORPUSCULAR HEMOGLOBIN 26.7 pg (27.0-31.0); MEAN CORPUSCULAR HGB CONC 32.8 g/dL (32.0-36.0); MEAN CORPUSCULAR VOLUME 81.6 fL (81.0-99.0); MEAN PLATELET VOLUME 7.2 fL (7.9-10.8); MONOCYTES # (AUTO) 0.7 10^3/uL (0.0-1.0); MONOCYTES % (AUTO) 7.2 %; NEUTROPHILS % (AUTO) 77.3 %; PLT - PLATELET COUNT 223 10^3/uL (130-450); RED BLOOD COUNT 3.48 10^6/uL (4.20-5.40); RED CELL DISTRIBUTION WIDTH 19.1 % (12.0-15.0); WHITE BLOOD COUNT 9.1 x10^3/uL (4.8-10.8)
[2018-06-07] MEDS ORDERED: CITRIC ACID/SODIUM CITRATE 15 ML UDC PO ONE ×2 (10:42→11:15)
[2018-06-07] MEDS ORDERED: miSOPROStol 200 MCG TABLET ONE (10:45)
[2018-06-07] MEDS ORDERED: OXYTOCIN/SODIUM CHLORIDE 500 ML IV ONE (10:45)
[2018-06-07] MEDS ORDERED: CARBOPROST TROMETHAMINE 250 MCG/ML AMP IM ONE (10:46)
[2018-06-07] MEDS ORDERED: METHYLERGONOVINE 0.2 MG/ML AMP ONE (10:46)
--- NOTE | 2018-06-07 11:19 | PROVIDER PROGRESS NOTE ---
Labor Progress Note - Uterine Monitoring Uterine Monitoring Mode: positive: External toco : 2-3 Contraction Intensity: positive: Strong Uterine Resting Tone: positive: Soft - Monitoring Monitor Mode: positive: External ultrasound Heart Rate Baseline: 130"s Heart Rate Variability: positive: Moderate (6-25 bmp) Accelerations: positive: Present, 15x15 Decelerations: positive: None Strip Review: positive: Category I - Vaginal Exam Dilation (in cm): 1 Effacement (%): 25 Station: -3 Cervical Position: Midposition (Pt is very concerned about the macrosomia. She is not tolerating labor well. Pt is now requesting C/S. she is aware of the possobility of a Epidural and because of her hx of these not working well would like to procede with C/S. Cervidel wasremoved and Terbutaline given. R&B explaned QAA.)
[2018-06-07] MEDS ORDERED: PHENYLEPHRINE 50 MG/5 ML VIAL IV ONE (11:30)
[2018-06-07] MEDS ORDERED: ceFAZolin 1 GM VIAL IV ONE (11:30)
[2018-06-07] MEDS ORDERED: OXYTOCIN 10 UNIT/ML VIAL IV ONE (11:30)
[2018-06-07] MEDS ORDERED: SODIUM CHLORIDE 0.9% 10 ML VIAL IV ONE (11:30)
[2018-06-07] MEDS ORDERED: MORPHINE PF 5 MG/10 ML AMP EP ONE (11:30)
[2018-06-07] MEDS ORDERED: ACETAMINOPHEN 1,000 MG/100 ML 100 ML IV ONE (11:30)
[2018-06-07] MEDS ORDERED: PROPOFOL 200 MG/20 ML VIAL IVP ONE (11:30)
[2018-06-07] MEDS ORDERED: MIDAZOLAM 2 MG/2 ML VIAL IVP ONE (11:30)
[2018-06-07] MEDS ORDERED: METHYLERGONOVINE 0.2 MG/ML AMP IVP ONE (11:30)
[2018-06-07] MEDS ORDERED: ePHEDrine 50 MG/ML AMP IVP ONE (11:30)
[2018-06-07] MEDS ORDERED: LACTATED RINGERS 1,000 ML IV ONE ×3 (11:45→12:49)
[2018-06-07] MEDS ORDERED: OXYTOCIN/SODIUM CHLORIDE 250 ML IV ONE (13:36)
[2018-06-07] MEDS ORDERED: SODIUM CHLORIDE FLUSH 0.9% 10 ML SYRINGE IVP PRN (13:36)
[2018-06-07] MEDS ORDERED: diphenhydrAMINE INJ 50 MG/ML VIAL IVP PRN (13:36)
[2018-06-07] MEDS ORDERED: KETOROLAC 30 MG/ML VIAL ONE (13:46)
[2018-06-07] MEDS ORDERED: LACTATED RINGERS 1,000 ML IV SCH (14:00)
[2018-06-07] MEDS: oxyCODONE 5 MG TABLET PO PRN ×3 (14:12→22:36)
[2018-06-07] MEDS: SIMETHICONE CHEW 80 MG TABLET PO SCH ×2 (14:13→18:37)
[2018-06-07] MEDS ORDERED: SODIUM CHLORIDE FLUSH 0.9% 10 ML SYRINGE IVP SCH (17:00)
--- NOTE | 2018-06-07 17:20 | OPERATIVE REPORT ---
Operative Report - General Admit Date: 06/07/18 Procedure Date: 06/07/18 Planned Procedure: Primary LTC/S Pre-Op Diagnosis: Suspected Macrosomic , Undesired fertility Procedure Performed: PLTC/S bilateral Salpingectomy Post Op Diagnosis: Live Female infant 08/07, 9lb 1.6 oz - Procedure Note Primary Surgeon: Faizan Mittal MD Secondary Surgeon: Page REYNOLDS Anesthesia Provider: Kostas Mancia CRNA Anesthesia Technique: Spinal Pathology: None Estimated Blood Loss (mL): 800 Drain/Tube Type: Other (Wound Vac) Complications: #[id number]
[2018-06-07 17:58] LABS: BASOPHILS % (AUTO) 0.3 %; HGB - HEMOGLOBIN 9.1 g/dL (12.0-16.0); LYMPHOCYTES # (AUTO) 0.7 10^3/uL (1.5-3.5); MEAN CORPUSCULAR HEMOGLOBIN 26.9 pg (27.0-31.0); MEAN CORPUSCULAR HGB CONC 32.6 g/dL (32.0-36.0); MEAN CORPUSCULAR VOLUME 82.5 fL (81.0-99.0); MEAN PLATELET VOLUME 7.5 fL (7.9-10.8); MONOCYTES # (AUTO) 0.6 10^3/uL (0.0-1.0); MONOCYTES % (AUTO) 4.5 %; NEUTROPHILS # (AUTO) 11.9 10^3/uL (1.5-6.6); NEUTROPHILS % (AUTO) 90.2 %; PLT - PLATELET COUNT 216 10^3/uL (130-450); RED BLOOD COUNT 3.36 10^6/uL (4.20-5.40); RED CELL DISTRIBUTION WIDTH 19.3 % (12.0-15.0); WHITE BLOOD COUNT 13.2 x10^3/uL (4.8-10.8)
[2018-06-07] MEDS: ACETAMINOPHEN 500 MG TABLET PO SCH (18:36)
[2018-06-07] MEDS: KETOROLAC 30 MG/ML VIAL IV SCH ×2 (18:56→19:37)
[2018-06-07] MEDS: DOCUSATE SODIUM 100 MG CAPSULE PO SCH (20:55)
--- NOTE | 2018-06-07 23:54 | OPERATIVE REPORT ---
DATE OF SERVICE: 06/07/2018 Physician: Faizan Mittal MD PREOPERATIVE DIAGNOSES 1. A 40-week gestation. 2. Suspected macrosomia. 3. Undesired fertility. POSTOPERATIVE DIAGNOSES 1. A 40-week gestation. 2. macrosomia. 3. Undesired fertility. PROCEDURE PERFORMED: Primary low transverse section with bilateral salpingectomy. SURGEON: Faizan Mittal MD SATURATOR: RODOLFO Newton. ANESTHESIA: Spinal by Kostas Mancia CRNA. ESTIMATED BLOOD LOSS: 800 mL. FINDINGS: Live female , Apgars 9 and 9, weighing 9 pounds 1.6 ounces. Clear amniotic fluid. DESCRIPTION OF PROCEDURE: Following adequate spinal anesthesia, the patient was placed in the dorsal lithotomy position with a roll under the right hip. At this point, following identification of the patient and addressing concerns which were those of potential bleeding and that she started hemoglobin at 9 grams of hemoglobin, the procedure was commenced. Following checking to make sure anesthesia was good, a Pfannenstiel incision was carried down through subcutaneous tissue to the fascia. The fascia was incised transversely and then utilizing Boyle scissors was carried laterally. The fascia was then both bluntly and sharply dissected free from the rectus abdominis. The rectus was split along the midline and the peritoneum was entered high. Care was taken to avoid any injury to bowel or bladder. At this point, the bladder retractor was placed. A bladder flap was developed using both blunt and sharp dissection. A low transverse uterine incision was accomplished using a # 10 blade and bandage scissor with the lateral extension with a finger spread technique. Clear amniotic fluid was encountered. The head of the was lifted out of the pelvis delivered through the incision. The cord was doubly clamped, divided, and the infant was handed to the nursery team that was standing by. Cord blood samples were obtained. Following this, the placenta was delivered. The uterus was wrapped in a moist lap, cleaned in the internal portion with a dry lap. There was evidence of increased vascularity on the left side of the uterus. This was treated with ring forceps. The incision was then closed utilizing a running locking suture of 0 Vicryl. There was extra bleeding noted on the left side of the incision as previously noted from the increased vascularity. This was treated with eglyvi-jy-tksvye of 0 Vicryl. The incision itself was then imbricated with 0 Vicryl. This was inspected for bleeding, none was noted. A moist lap was then placed over this. The cul-de-sac was cleansed and cleared of any clot. The estimated blood loss was ascertained at that time. The right tube was grasped with [place] and then the mesosalpinx was divided utilizing LigaSure. Care was taken to avoid injury to the vascularity on the adnexa. The tube itself was totally removed and sent for pathologic evaluation. The left tube was treated in an identical fashion. The mesosalpinx was clamped utilizing LigaSure, cauterized, and then divided. This was carried all the way to the cornu. The ovarian vessels on both sides were inspected for bleeding, none was noted. The uterus was delivered back in the abdominal cavity. The incision was inspected and no further bleeding was noted. The gutters were irrigated and the peritoneum was closed utilizing 2-0 Vicryl. The rectus was inspected, irrigated. Electrocautery was utilized for hemostasis. The fascia was closed utilizing looped 0 PDS in a running suture. Subcutaneous tissue was irrigated and then closed utilizing 2-0 Vicryl. The incision itself was closed utilizing 4-0 Monocryl subcuticular with Mastisol and Steri-Strips. Following this, a wound VAC was placed with evidence of excellent seal. The patient tolerated the procedure well and was taken to the recovery in stable condition. Sponge and needle counts were correct. TD: 06/07/2018 17:39 EMILY
[2018-06-08] MEDS: KETOROLAC 30 MG/ML VIAL IV SCH ×2 (02:40→08:24)
[2018-06-08] MEDS: ACETAMINOPHEN 500 MG TABLET PO SCH ×3 (02:40→18:20)
[2018-06-08] MEDS: oxyCODONE 5 MG TABLET PO PRN ×4 (02:40→19:58)
[2018-06-08 05:54] LABS: BASOPHILS % (AUTO) 0.4 %; EOSINOPHILS # (AUTO) 0.1 10^3/uL (0.0-0.7); EOSINOPHILS % (AUTO) 0.5 %; HGB - HEMOGLOBIN 7.4 g/dL (12.0-16.0); LYMPHOCYTES # (AUTO) 1.7 10^3/uL (1.5-3.5); LYMPHOCYTES % (AUTO) 16.7 %; MEAN CORPUSCULAR HEMOGLOBIN 26.7 pg (27.0-31.0); MEAN CORPUSCULAR HGB CONC 31.6 g/dL (32.0-36.0); MEAN CORPUSCULAR VOLUME 84.6 fL (81.0-99.0); MEAN PLATELET VOLUME 7.5 fL (7.9-10.8); MONOCYTES % (AUTO) 9.5 %; NEUTROPHILS # (AUTO) 7.6 10^3/uL (1.5-6.6); NEUTROPHILS % (AUTO) 72.9 %; PLT - PLATELET COUNT 203 10^3/uL (130-450); RED BLOOD COUNT 2.79 10^6/uL (4.20-5.40); RED CELL DISTRIBUTION WIDTH 19.1 % (12.0-15.0); WHITE BLOOD COUNT 10.4 x10^3/uL (4.8-10.8)
--- NOTE | 2018-06-08 07:54 | PROVIDER PROGRESS NOTE ---
Subjective - Prog Note Date Prog Note Date: 06/08/18 Prog Note Time: 07:51 - Subjective Pt reports feeling: No change (Pt notes pain 06/07. states her pain control is good. offered IV pain meds. states that she does not need it but that oral pain contrtol is good. notes pain at the right of the incision. passing flatus. [place] just out up voiding.) Objective - Vital Signs/Intake & Output Reviewed Vital Signs: Yes Vital Signs: Vital Signs x48h Temp Pulse Resp BP Pulse Ox 06/08/18 03:52 37.0 C 72 16 106/58 L 97 06/08/18 00:26 36.9 C 75 16 109/64 97 Intake & Output: Intake & Output 06/05/18 06/06/18 06/07/18 06/08/18 23:59 23:59 23:59 23:59 Intake Total 7234.917 1250 Output Total 1555 700 Balance 5679.917 550 - Objective General Appearance: positive: No acute distress (moving easly), Alert Respiratory: positive: Chest non-tender, No respiratory distress, Breath sounds nml Cardiovascular: positive: Regular rate & rhythm, No murmur, No gallop Abdomen: positive: Tenderness (right lower quatrent. no rebound), Mass (u-1) Back: negative: CVA tenderness (R), CVA tenderness (L) Extremities: negative: Calf tenderness, Joint swelling, Sanket's sign/cords Neurologic/Psychiatric: positive: Oriented x3 - Lab Results Fish Bones: 06/08/18 05:15 Other Labs: Lab Results x24hrs 06/08/18 06/07/18 06/07/18 Range/Units 05:15 17:42 10:23 WBC 10.4 13.2 H 9.1 (4.8-10.8) x10^3/uL RBC 2.79 L 3.36 L 3.48 L (4.20-5.40) 10^6/uL Hgb 7.4 L 9.1 L 9.3 L (12.0-16.0) g/dL Hct 23.6 L 27.8 L 28.4 L (37.0-47.0) % MCV 84.6 82.5 81.6 (81.0-99.0) fL MCH 26.7 L 26.9 L 26.7 L (27.0-31.0) pg MCHC 31.6 L 32.6 32.8 (32.0-36.0) g/dL RDW 19.1 H 19.3 H 19.1 H (12.0-15.0) % Plt Count 203 216 223 (130-450) 10^3/uL MPV 7.5 L 7.5 L 7.2 L (7.9-10.8) fL Neut # (Auto) 7.6 H 11.9 H 7.0 H (1.5-6.6) 10^3/uL Lymph # (Auto) 1.7 0.7 L 1.2 L (1.5-3.5) 10^3/uL [place] # (Auto) 1.0 0.6 0.7 (0.0-1.0) 10^3/uL Eos # (Auto) 0.1 0.0 0.1 (0.0-0.7) 10^3/uL Baso # (Auto) 0.0 0.0 0.0 (0.0-0.1) 10^3/uL Absolute Nucleated RBC 0.01 0.00 0.01 x10^3/uL Nucleated RBC % 0.1 0.0 0.1 /100WBC Assessment/Plan - Problem List (1) Delivery by elective section Impression: POD #1 progressing well pain noted to be 7/10 but appears to be doing much better. POst op anemia. seens to be tolerating well.
[2018-06-08] MEDS: DOCUSATE SODIUM 100 MG CAPSULE PO SCH ×2 (08:25→21:13)
[2018-06-08] MEDS: SERTRALINE 50 MG TABLET PO SCH (08:26)
[2018-06-08] MEDS: SIMETHICONE CHEW 80 MG TABLET PO SCH ×3 (09:00→19:58)
[2018-06-08] MEDS ORDERED: ceFAZolin 1 GM VIAL IV ONE (11:30)
[2018-06-08] MEDS ORDERED: SODIUM CHLORIDE 0.9% 10 ML VIAL IV ONE (11:30)
[2018-06-08] MEDS ORDERED: MIDAZOLAM 2 MG/2 ML VIAL IVP ONE (11:30)
[2018-06-08] MEDS ORDERED: PHENYLEPHRINE 50 MG/5 ML VIAL IV ONE (11:30)
[2018-06-08] MEDS ORDERED: ACETAMINOPHEN 1,000 MG/100 ML 100 ML IV ONE (11:30)
[2018-06-08] MEDS ORDERED: METHYLERGONOVINE 0.2 MG/ML AMP IVP ONE (11:30)
[2018-06-08] MEDS ORDERED: OXYTOCIN 10 UNIT/ML VIAL IV ONE (11:30)
[2018-06-08] MEDS ORDERED: PROPOFOL 200 MG/20 ML VIAL IVP ONE (11:30)
[2018-06-08] MEDS ORDERED: MORPHINE PF 5 MG/10 ML AMP EP ONE (11:30)
[2018-06-08] MEDS ORDERED: ePHEDrine 50 MG/ML AMP IVP ONE (11:30)
[2018-06-08] MEDS: IBUPROFEN 800 MG TABLET PO SCH ×2 (15:11→21:14)
[2018-06-08 18:06] LABS: HGB - HEMOGLOBIN 7.8 g/dL (12.0-16.0); MEAN CORPUSCULAR HEMOGLOBIN 26.8 pg (27.0-31.0); MEAN CORPUSCULAR HGB CONC 32.9 g/dL (32.0-36.0); MEAN CORPUSCULAR VOLUME 81.4 fL (81.0-99.0); MEAN PLATELET VOLUME 7.4 fL (7.9-10.8); RED BLOOD COUNT 2.92 10^6/uL (4.20-5.40); RED CELL DISTRIBUTION WIDTH 19.3 % (12.0-15.0); WHITE BLOOD COUNT 9.6 x10^3/uL (4.8-10.8)
--- NOTE | 2018-06-08 21:34 | Ultrasound Report ---
Procedure Date: 06/08/2018 Accession Number: [id number] / [id number] Procedure: US - Duplex Ext Veins Left CPT Code: FULL RESULT: EXAM: LEFT LOWER EXTREMITY VENOUS ULTRASOUND EXAM DATE: 06/08/2018 07:11 PM. CLINICAL HISTORY: New calf pain and tenderness left lower extremity. COMPARISON: None. TECHNIQUE: Real-time sonographic vascular imaging was performed by the card player through the lower extremity utilizing both color-flow and Doppler spectral analysis. Multiple life assurance representative static images were saved for review. FINDINGS: Common Femoral Vein (CFV): Normal. CFV-GSV Junction: Normal. Profunda Femoral Vein (PFV): Normal. Femoral Vein (FV) Prox: Normal. Femoral Vein (FV) Mid: Normal. Femoral Vein (FV) Dist: Normal. Popliteal Vein: Normal. Posterior Tibial Veins: Normal. Peroneal Veins: Normal. Contralateral Side CFV: Normal. Other: None. IMPRESSION: No evidence for deep venous thrombosis. RADIA
[2018-06-09] MEDS: IBUPROFEN 800 MG TABLET PO SCH (04:47)
[2018-06-09] MEDS: oxyCODONE 5 MG TABLET PO PRN ×2 (04:47→10:09)
[2018-06-09] MEDS: ACETAMINOPHEN 500 MG TABLET PO SCH (04:50)
[2018-06-09] MEDS ORDERED: MEASLES,MUMPS & RUBELLA VACC 0.5 ML VIAL SUBQ ONE (09:05)
[2018-06-09] MEDS: SIMETHICONE CHEW 80 MG TABLET PO SCH (10:08)
[2018-06-09] MEDS: SERTRALINE 50 MG TABLET PO SCH (10:08)
[2018-06-09] MEDS: DOCUSATE SODIUM 100 MG CAPSULE PO SCH (10:09)
[2018-06-09 11:17] VITALS: BP 109/62
--- NOTE | 2018-06-09 11:22 | Labor Flowsheet ---
Labor Flowsheet Datetime Report Generated by CPN: 06/09/2018 11:22 Datetime: 06/07/2018 19:17 Membranes Ruptured Date/Time: 06/07/2018 12:17 Membranes Rupture Method: Artificial Amniotic Fluid Color: Clear Datetime: 06/07/2018 11:35 UTERINE ACTIVITY Monitor Mode: External Frequency (min): 2-3 Quality: Strong Duration (sec): 60-90 Resting Tone (Palpate): Relaxed Contraction Comments: EFM off, going to the OR ASSESSMENT A Monitor Mode: Telemetry FHR Baseline Rate : 135 Variability: Moderate 6-25 bpm Accelerations: 15X15 Decelerations: None Category: Category I Oxygen Method: Room Air Datetime: 06/07/2018 11:12 Antiemetics/Antacids: Bicitra 30 ml PO Medication Comments: 15 mls only per HOME IMPROVEMENT CONTRACTOR PROCEDURE TIME OUT Procedure Verify: Correct Patient Identity; Agreement on Procedure to be Done ANESTHESIA Anesthesia Comments: interview completed COMMUNICATION Communication: Provider at Bedside Provider Notified (Name): Dr Giem Communication Comments: primary and bilateral tubal ligation consent signed Datetime: 06/07/2018 10:28 PATIENT CARE IV/Blood Work: IV Bolus Started Datetime: 06/07/2018 10:24 Patient Care Comments: blood draw for CBC Datetime: 06/07/2018 10:20 MEDICATIONS Tocolytics: Terbutaline 0.25mg Subcutaneous Datetime: 06/07/2018 10:01 Cervical Ripening Agents: Cervidil Datetime: 06/07/2018 09:31 VITAL SIGNS NBP Sys/Barbara/Mean (mmHg): 93 : 48 : 59 Pulse: 97 LaborFlag: Labor Datetime: 06/07/2018 09:18 Analgesics/Sedatives: Fentanyl (mcg) @ 50 Datetime: 06/07/2018 09:01 Monitor Interventions for UA: [place] Adjusted Datetime: 06/07/2018 08:59 Antibiotics: Penicillin IV (Units) @ 2.5 million Datetime: 06/07/2018 08:50 VAGINAL EXAM Dilatation (cm): 1.0 Effacement (%): 25 Station: -2 Exam by: Dr Mittal Vaginal Bleeding: Normal Show Cervix, Consistency: Moderate Cervix, Position: Posterior Provider Reviewed Strip: Yes Strip Reviewed by: Dr Mittal Datetime: 06/07/2018 08:39 Patient Position/Activity: Right Lateral Datetime: 06/07/2018 08:30 Monitor Interventions for FHR: Ultrasound Adjusted Comments: baseline change with Bettina sitting in a warm bath Datetime: 06/07/2018 08:25 PAIN Pain Presence: Intermittent Pain Type: Cramping Pain Location: Abdomen; Back; Right Hip; Left Hip; Right Leg; Left Leg Comfort Measures: Breathing/Relaxation; Hot Shower/Tub/Spa Datetime: 06/07/2018 08:07 I/O Interventions: Up to BR
--- NOTE | 2018-06-22 11:33 | DISCHARGE SUMMARY ---
Physician: Faizan Mittal MD DATE OF ADMISSION: 06/07/2018 DATE OF DISCHARGE: 06/09/2018 ADMITTING DIAGNOSES 1. At 39 weeks, G4, P3. 2. Severe anemia. 3. Macrosomic suspected at 4100 grams. 4. Desires sterilization. 5. History of pyelonephritis. 6. Psychosocial disruption. 7. History of herpes simplex virus, currently suppressed on acyclovir. 8. Positive group B Streptococcus. DISCHARGE DIAGNOSES 1. At 39 weeks, G4, P3. 2. Severe anemia. 3. Macrosomic suspected at 4100 grams. 4. Desires sterilization. 5. History of pyelonephritis. 6. Psychosocial disruption. 7. History of herpes simplex virus, currently suppressed on acyclovir. 8. Positive group B Streptococcus. PROCEDURES 1. Transfusion of 2 units of packed red blood cells. 2. Primary low transverse section. 3. Bilateral salpingectomy for sterilization. 4. Spinal anesthetic. PRESENTING HISTORY: The patient is a 22-year-old. She is G4, P3 with three live infants. She is a [place] . She has difficulty with severe anemia. She has been treated with supplemental oral iron as well as IV iron. The IV iron she did not tolerate well. She has been seen by a maternal medicine who recommended transfusion of red blood cells prior to delivery. She has had an ultrasound, which shows an suspected to be LGA. She is requesting a primary low transverse section. She does have a history of a hemorrhage as well as a prolapsed cord with previous deliveries. She has also had difficulty with anxiety. LABORATORIES: Hemoglobin on admission was 8.3. She was transfused up to 9.3. Her postop hemoglobin fell to a ky of 7.4, which she tolerated well and rebounded 7.8. Her platelets remain normal, the entire time. HOSPITAL COURSE: The patient was admitted, transfused 2 units of packed red blood cells and was taken to the operating room for an elective primary low transverse with tubal ligation. This was performed with an estimated blood loss of 800 mL. She did well postoperatively. She did complain of pain at 7/10; but when questioned, she stated her pain control was good and when offered more narcotics she declined them at that time. Her course otherwise was unremarkable. She was discharged to home on 06/09/2018 with discharge medications of Motrin and oxycodone. She is instructed to followup in the clinic in one week for removal of her wound VAC. She was cautioned regarding wound infections, endometritis as well as breast infections. TD: 06/22/2018 10:05
== END 2018-06-09 11:00 | disposition home or self-care (01) | DRG 765 ==
LOC: WFO 20:07 → FBP 20:08 → WFO 20:09 → FBP 20:21 → OBSVTOIN 06-07 10:45 → FBP 06-08 05:48
PROVIDERS: ADMIT Obstetrics & Gynecology; ATTEND Obstetrics & Gynecology
PROC: 0UT70ZZ Resection of Bilateral Fallopian Tubes, Open Approach (ICD-10-PCS; 2018-06-07)
PROC: 10D00Z1 Extraction of Products of Conception, Low, Open Approach (ICD-10-PCS; principal; 2018-06-07 12:00)
DX: O36.63X0 Maternal care for excessive fetal growth, third trimester, not applicable or unspecified (principal); O98.52 Other viral diseases complicating childbirth; O99.02 Anemia complicating childbirth; D50.9 Iron deficiency anemia, unspecified; Z37.0 Single live birth; Z3A.39 39 weeks gestation of pregnancy; Z30.2 Encounter for sterilization; B00.9 Herpesviral infection, unspecified; O99.344 Other mental disorders complicating childbirth; F41.9 Anxiety disorder, unspecified; O99.824 Streptococcus B carrier state complicating childbirth; O61.0 Failed medical induction of labor; Z79.899 Other long term (current) drug therapy; Z87.59 Personal history of other complications of pregnancy, childbirth and the puerperium; Z79.2 Long term (current) use of antibiotics; Z87.440 Personal history of urinary (tract) infections; Z28.3 Underimmunization status
CPT/HCPCS: 36415; 36430; 59200; 85025; 85027; 86850; 86900; 86901; 86920; 96361; 96365; 96366; 96367; 96372; 96375

== ENCOUNTER 2018-10-25 13:46 | Emergency (ER) | payer OTHER ==
[2018-10-25 14:11] VITALS: BP 124/77
== END 2018-10-25 15:24 | disposition left against medical advice (07) ==
LOC: ED 13:46
DX: Z53.21 Procedure and treatment not carried out due to patient leaving prior to being seen by health care provider (principal)

== ENCOUNTER 2019-01-20 16:37 | Emergency (ER) | payer OTHER ==
[2019-01-20] MEDS ORDERED: cephALEXin 250 MG CAPSULE PO STA (16:59)
[2019-01-20] MEDS ORDERED: SULFAMETH/TRIMETH DS 800/160 MG TABLET PO STA (16:59)
[2019-01-20] MEDS ORDERED: DEXAMETHASONE 10 MG/ML VIAL PO STA (16:59)
--- NOTE | 2019-01-20 17:01 | ED Physician Documentation ---
History of Present Illness - Stated complaint Stated Complaint: LT ARM RED & BLISTERS - History obtained from History obtained from: Patient - History of Present Illness Timing: How many days ago (2) Pain level max: 2 Pain level now: 1 - Additonal information Additional information: L forearm new tattoo 1 week ago. now red, swelling. nothing makes it better or worse Review of Systems Constitutional: denies: Fever : denies: Now EGA Musculoskeletal: denies: Neck pain, Back pain PD PAST MEDICAL HISTORY - Past Medical History Cardiovascular: None Respiratory: None, Other Neuro: None Endocrine/Autoimmune: None GI: None : None, Chronic bladder infection HEENT: None Psych: None Musculoskeletal: None Derm: None - Past Surgical History Past Surgical History: Yes General: Appendectomy HEENT: Tonsil/Adenoidectomy - Present Medications Home Medications: Ambulatory Orders Medication Instructions Recorded Confirmed Amox/Clav 875/125 [Augmentin] 1 each PO Q12H #13 tablet 12/08/17 03/09/18 Pnv95/Ferrous Fumarate/FA 1 tab PO DAILY 12/08/17 03/09/18 [ Formula Tablet] Cephalexin [Keflex] 500 mg PO Q6H #28 capsule 05/26/18 predniSONE [Prednisone] 20 mg PO DAILY #5 tablet 05/26/18 Cephalexin [Keflex] 500 mg PO Q6H #28 capsule 01/20/19 Sulfamethox/Trimeth 800/160 1 each PO BID #14 tablet 01/20/19 [Bactrim Ds 800/160] - Allergies Allergies/Adverse Reactions: Allergies Allergy/AdvReac Type Severity Reaction Status Date / Time pineapple Allergy Severe Edema Verified 01/20/19 17:00 epinephrine Allergy Unknown Unknown Verified 01/20/19 17:00 morphine Allergy Unknown Verified 01/20/19 17:00 peanut Allergy Unknown Verified 01/20/19 17:00 hydromorphone [From Dilaudid] AdvReac Severe Respiratory Verified 01/20/19 17:00 nuts Allergy Severe Hives Uncoded 01/20/19 17:00 ирина, coconut Allergy Hives Uncoded 01/20/19 17:00 - Social History Does the pt smoke?: Yes Smoking Status: Former smoker Does the pt drink ETOH?: Yes Does the pt have substance abuse?: No - Immunizations Immunizations are current?: Yes - POLST Patient has POLST: No PD ED PE NORMAL - Vitals Vital signs reviewed: Yes - General General: Alert and oriented X 3, No acute distress - HEENT HEENT: Moist mucous membranes - Derm Derm: Warm and dry - Extremities Extremities: Other (L UE - Volar aspect of the forearm is covered with a tattoo, there is confluent erythema with small satellite lesions. There is peeling of the tattoo. Blanches easily. No pustules or vesicles.) - Neuro Neuro: Alert and oriented X 3 Results - Vitals Vitals: Vital Signs - 24 hr 01/20/19 16:55 Temperature 37.4 C Heart Rate 108 H Respiratory 12 Rate Blood Pressure 143/79 H O2 Saturation 99 Oxygen O2 Source Room air PD MEDICAL DECISION MAKING - ED course Complexity details: considered differential, d/w patient ED course: 23-year-old female with what appears to be a cellulitis of a new tattoo site. Will place on antibiotics and follow-up closely with her doctor. She is well- appearing, nontoxic. Afebrile. Patient counseled regarding signs and symptoms for which I believe and urgent re-evaluation would be necessary. Patient with good understanding of and agreement to plan and is comfortable going home at this time This document was made in part using voice recognition software. While efforts are made to proofread this document, sound alike and grammatical errors may occur. Departure - Departure Disposition: 01 Home, Self Care Clinical Impression: Cellulitis Qualifiers: Site of cellulitis: extremity Site of cellulitis of extremity: upper extremity Laterality: left Qualified Code(s): L03.114 - Cellulitis of left upper limb Condition: Good Instructions: ED Infec Skin Cellulitis Follow-Up: your,doctor in 3 days for wound check [Other] Prescriptions: Cephalexin [Keflex] 500 mg PO Q6H #28 capsule Sulfamethox/Trimeth 800/160 [Bactrim Ds 800/160] 1 each PO BID #14 tablet Comments: Your tattoo appears infected today. Take all antibiotics until gone. This should improve rapidly over the next few days. Return if you worsen
[2019-01-20 17:19] VITALS: BP 119/74
== END 2019-01-20 17:18 | disposition home or self-care (01) ==
LOC: ED 16:37
DX: L03.114 Cellulitis of left upper limb (principal); Z87.891 Personal history of nicotine dependence
CPT/HCPCS: 99283; A9270

== ENCOUNTER 2019-03-15 08:46 | Outpatient (CLI) | payer OTHER ==
--- NOTE | 2019-03-15 09:03 | XRAY Report ---
Reason: HEEL PAIN,LEFT Procedure Date: 03/15/2019 Accession Number: [id number] / [id number] Procedure: WCP - Foot 2 View LT CPT Code: FULL RESULT: EXAM: LEFT FOOT RADIOGRAPHY EXAM DATE: 03/15/2019 08:55 AM. CLINICAL HISTORY: HEEL Pain, left. COMPARISON: FOOT 3 VIEW LT 02/24/2017 3:51 PM. TECHNIQUE: 3 views. FINDINGS: Bones: Normal. No fractures or bone lesions. Joints: Normal. No subluxations. Soft Tissues: Normal. No soft tissue swelling. IMPRESSION: Normal foot radiography. No significant change. RADIA
== END 2019-03-15 08:47 | disposition home or self-care (01) ==
LOC: DI.WCP 08:46
PROVIDERS: ATTEND Nurse Practitioner
DX: M79.672 Pain in left foot (principal)

== ENCOUNTER 2019-07-04 07:32 | Day surgery (SDC) | payer OTHER ==
[~2019-07-04 07:32] MED LIST changes: -ACETAMINOPHEN 325 MG TABLET PO SCH; +BUPIVACAINE 0.5%-EPI 1:200000 PF 30 ML VIAL ONE; -LACTATED RINGERS 1,000 ML IV SCH; +LIDOCAINE-MPF 1% 30 ML VIAL ONE; -SODIUM CHLORIDE FLUSH 0.9% 10 ML SYRINGE IVP PRN; -SODIUM CHLORIDE FLUSH 0.9% 10 ML SYRINGE IVP SCH
[2019-07-04] MEDS ORDERED: KETOROLAC 30 MG/ML VIAL IVP ONE (07:33)
[2019-07-04] MEDS ORDERED: MIDAZOLAM 2 MG/2 ML VIAL IVP ONE (07:33)
[2019-07-04] MEDS ORDERED: DEXAMETHASONE 4 MG/ML VIAL IVP ONE (07:33)
[2019-07-04] MEDS ORDERED: PROPOFOL 200 MG/20 ML VIAL IVP ONE (07:33)
[2019-07-04] MEDS ORDERED: ROCURONIUM 50 MG/5 ML VIAL IVP ONE (07:33)
[2019-07-04] MEDS ORDERED: GLYCOPYRROLATE 1 MG/5 ML VIAL IVP ONE (07:33)
[2019-07-04] MEDS ORDERED: ONDANSETRON 4 MG/2 ML VIAL IVP ONE (07:33)
[2019-07-04] MEDS ORDERED: NEOSTIGMINE 1 MG/1 ML 10 ML MDV IVP ONE (07:33)
[2019-07-04] MEDS ORDERED: fentaNYL 250 MCG/5 ML VIAL IVP ONE (07:33)
[2019-07-04] MEDS ORDERED: levoFLOXacin 500 MG/100 ML 500 MG/100 ML BAG IV ONE (08:00)
--- NOTE | 2019-07-04 08:16 | ANESTHESIA ---
Pre-Anesthesia VS, & Labs - Diagnosis cholelithiasis, cholecystitis, umbilical hernia - Procedure Lap. gwen and umbilical hernia repair Vital Signs: Temp Pulse Resp BP Pulse Ox 36.8 C 105 H 18 133/98 H 100 07/04/19 08:09 07/04/19 08:09 07/04/19 08:09 07/04/19 08:09 07/04/19 08:09 Height 5 ft 2 in Weight (kg) 65 kg Body Mass Index 22.8 - NPO >8 hours - Is Patient ?: Waiver signed Home Medications and Allergies Home Medications: Ambulatory Orders Propranolol HCl 40 mg PO BID PRN 07/03/19 Propranolol HCl 40 mg PO BID PRN 07/03/19 Allergies/Adverse Reactions: Allergies Allergy/AdvReac Type Severity Reaction Status Date / Time pineapple Allergy Severe Edema Verified 01/20/19 17:00 ирина Allergy Hives Verified 07/03/19 11:02 peanut Allergy Anaphylaxis Verified 07/03/19 11:02 nuts Allergy Severe Anaphylaxis Uncoded 07/03/19 11:02 Anes History & Medical History - Anesthetic History Anesthesia Complications: reports: No previous complications - Medical History Cardiovascular: reports: Other (palpitations) Pulmonary: reports: None Gastrointestinal: reports: GERD (poorly controlled), Cholelithiasis Urinary: reports: Chronic bladder infection Neuro: reports: None, Other (stress related seizures.) Musculoskeletal: reports: Chronic back pain Endocrine/Autoimmune: reports: None Blood Disorders: reports: None Skin: reports: Eczema Smoking Status: Current some day smoker Psychosocial: reports: Depression, Anxiety, Other (PTSD) - Surgical History General: Appendectomy Eyes Ears Nose Throat (EENT): Tonsil/Adenoidectomy Gynecologic: section Exam General: Alert, Oriented x3, Cooperative, No acute distress Dental: WNL Mouth Openin Fingerbreadth Neck Mobility: Normal Mallampati classification: II Thyromental Distance: greater than 6 cm Respiratory: Lungs clear, Normal breath sounds, No respiratory distress, No accessory muscle use Cardiovascular: Regular rate, Normal S1, Normal S2, No murmurs Cognitive Status: Within normal limits Plan Anesthesia Type: General Consent for Procedure(s) Verified and Reviewed: Yes Code Status: Attempt Resuscitation ASA classification: 2-Mild systemic disease Is this case an emergency?: No
[2019-07-04] MEDS ORDERED: LACTATED RINGERS 1,000 ML IV ONE ×2 (08:35→10:22)
[2019-07-04] MEDS ORDERED: BUPIVACAINE 0.5%-EPI 1:200000 PF 30 ML VIAL SUBQ ONE (09:11)
[2019-07-04] MEDS ORDERED: LIDOCAINE 1% 10 ML MDV SUBQ ONE (09:11)
[2019-07-04] MEDS ORDERED: oxyCODONE 5 MG TABLET PO PRN (10:04)
[2019-07-04] MEDS ORDERED: ONDANSETRON 4 MG/2 ML VIAL IVP PRN (10:04)
--- NOTE | 2019-07-04 10:04 | OPERATIVE REPORT ---
Operative Report - General Procedure Date: 07/04/19 Planned Procedure: Laparoscopic cholecystectomy Pre-Op Diagnosis: Cholelithiasis and chronic cholecystitis Procedure Performed: Laparoscopic cholecystectomy Post Op Diagnosis: Same - Procedure Note Primary Surgeon: Inga Anesthesia Provider: ELIEL Salgado Anesthesia Technique: General ET tube, Local Pathology: Gall bladder in formalin to pathology IV Fluids (mL): 1,000 Estimated Blood Loss (mL): 20 Indications: Biliary colic Findings: Gallbladder with dense adhesions to surrounding structures. Complications: None apparent - Other Other Information/Narrative: After obtaining informed consent, the patient is brought to the operating room and placed in the supine position on the operating table. Following successful induction of general endotracheal anesthesia, appropriate padding of all bony prominences, and placement of appropriate monitors, the abdomen is prepped and draped in the standard surgical fashion. A timeout was held per UTOAP protocol. Following infiltration with local anesthetic to create a field block, an incision was created directly over the hernia defect at the umbilicus. This was carried down through the skin and subcutaneous tissue. The hernia sac was identified and carefully dissected from the overlying skin and underlying fascia. This was placed back into the abdominal cavity.This was used as our first port site. The peritoneum was gently opened sharply with Metzenbaum scissors. A 10 mm blunt [place] balloon trocar was placed in the abdominal cavity and it was insufflated to 15 mmHg pressure. The patient was placed in reverse Trendelenburg position with the left side rotated toward the floor. A second 5 mm trocar was placed in the midepigastrium and 2 more in the right upper quadrant. All of these were placed after infiltration with local anesthetic. The fundus the gallbladder was identified and grasped. It was elevated over the liver. We noted dense omental adhesions to the fundus as well as the neck of the gallbladder. These were carefully dissected free from the gallbladder using combination of blunt and sharp dissection. We were finally able to elevate the gallbladder over the liver to reveal the cholecysto hepatoduodenal ligament. The neck of the gallbladder was then retracted superior laterally so that we could carefully identify the cystic duct. The cystic duct itself was noted to be long. The common duct was visualized in the lianet hepatis more proximally. The cystic duct was clipped 3 times proximally once distally and divided. We then began a search for the cystic artery. The patient was noted to have a cystic artery actually posterior and lateral to the cystic duct. I could not clearly identify if this represented a replaced right hepatic or simply an aberrant cystic artery. The structure was dissected at the surface of the gallbladder so as not to injure deeper structures or deeper tributaries. It was clipped twice proximally once distally and divided. A fairly sizable vein was then identified over the surface of the gallbladder. There was no pulse within the structure but it was directly adherent to the surface of the gallbladder and obviously terminated in the wall of the gallbladder. This was addressed with clips by clipping it once proximally once distally and dividing it. The gallbladder was then liberated from its bed in the liver using Bovie cautery. It was placed in an Endo Catch bag and removed via the umbilical port with a camera in the epigastric position. The camera was replaced at the umbilical position. The operative site was checked for hemostasis. It was irrigated with 1 L of normal warm saline solution and aspirated free of all blood and particulate matter. We were satisfied that hemostasis was adequate, The trochars were removed under direct vision and the abdomen was desufflated. The umbilical incision was addressed with interrupted 0 Prolene suture. 0 Vicryl suture was placed laterally as retention suture. The umbilical skin was then closed with Monocryl stitches and Monocryl was placed in the remainder of the skin incisions. All sponge, needle, and instrument counts were correct at the conclusion of the case. The patient was allowed to awaken from anesthesia without difficulty and taken to the postanesthesia care unit in good condition.
[2019-07-04] MEDS ORDERED: ACETAMINOPHEN 1,000 MG/100 ML 100 ML IV ONE (10:27)
[2019-07-04] MEDS ORDERED: LORazepam 2 MG/ML VIAL ONE (10:32)
[2019-07-04 16:33] VITALS: BP 113/74
== END 2019-07-04 07:33 | disposition home or self-care (01) ==
LOC: SDS 07:32
PROVIDERS: ATTEND Surgery
PROC: 0FT44ZZ Resection of Gallbladder, Percutaneous Endoscopic Approach (ICD-10-PCS; principal; 2019-07-04 08:30)
DX: K81.1 Chronic cholecystitis (principal); K42.9 Umbilical hernia without obstruction or gangrene; K21.9 Gastro-esophageal reflux disease without esophagitis; F17.200 Nicotine dependence, unspecified, uncomplicated
CPT/HCPCS: 47562; J0131; J2060; J3010; J7120; 80048; 85025

== ENCOUNTER 2019-07-05 20:23 | Emergency (ER) | payer OTHER ==
[2019-07-05 20:38] VITALS: BP 119/63
--- NOTE | 2019-07-05 21:28 | ED Physician Documentation ---
PD HPI WOUND RECHECK - Stated complaint Stated Complaint: POST OP COMPLICATIONS - Chief complaint Chief Complaint: Wound - Histroy obtained from History obtained from: Patient - History of Present Illness Location: Abdomen (had gallbladder surgery yesterday and today was having some nausea despite Zofran. Had one of the wound sites open to fatty tissue as the glue adhesive came off. No bleeding nor purulence. She is concerned about it being open.) Timing - onset: Today Associated symptoms: No: Fever, Redness, Swelling Recently seen: Surgery Review of Systems Constitutional: denies: Fever, Myalgias Nose: denies: Rhinorrhea / runny nose, Congestion Throat: denies: Sore throat Respiratory: denies: Cough GI: reports: Nausea. denies: Diarrhea PD PAST MEDICAL HISTORY - Past Medical History Cardiovascular: Other (palpitations) Respiratory: None Neuro: None, Other (stress related seizures.) Endocrine/Autoimmune: None GI: GERD (poorly controlled), Cholelithiasis : Chronic bladder infection HEENT: None Psych: Anxiety, Panic attacks, Post traumatic stress disorder Musculoskeletal: Chronic back pain Derm: Eczema - Past Surgical History Past Surgical History: Yes General: Appendectomy /RN RESEARCH: section HEENT: Tonsil/Adenoidectomy - Present Medications Home Medications: Ambulatory Orders Medication Instructions Recorded Confirmed Propranolol HCl 40 mg PO BID PRN 07/03/19 07/04/19 Ondansetron Odt [Zofran] 4 mg TL Q6H PRN #10 tablet 07/04/19 Oxycodone HCl/Acetaminophen 1 each PO Q6H PRN #15 tablet 07/04/19 [Oxycodone-Acetaminophen 5-325] Promethazine [Phenergan] 25 mg PO Q6H PRN #10 tab 07/05/19 - Allergies Allergies/Adverse Reactions: Allergies Allergy/AdvReac Type Severity Reaction Status Date / Time pineapple Allergy Severe Edema Verified 01/20/19 17:00 ирина Allergy Hives Verified 07/03/19 11:02 peanut Allergy Anaphylaxis Verified 07/03/19 11:02 Latex, Natural Rubber AdvReac Rash Verified 07/04/19 08:18 nuts Allergy Severe Anaphylaxis Uncoded 07/03/19 11:02 - Social History Does the pt smoke?: Yes Smoking Status: Current some day smoker Does the pt drink ETOH?: Yes Does the pt have substance abuse?: No - Immunizations Immunizations are current?: Yes - POLST Patient has POLST: No PD ED PE NORMAL - Vitals Vital signs reviewed: Yes - General General: Alert and oriented X 3, No acute distress, Well developed/nourished - HEENT HEENT: Moist mucous membranes, Pharynx benign - Cardiac Cardiac: RRR, No murmur - Respiratory Respiratory: Clear bilaterally - Abdomen Abdomen: Soft, Non distended, No organomegaly, Other (There are laparoscopic surgery wounds noted. The right abdominal site shows lack of glue and the wound is slightly dehisced to the fatty tissue layer. There is no bleeding or foreign body. No redness or swelling. I was able to close the back together with Dermabond and Steri-Strips and benzoin.) - Derm Derm: Normal color, Warm and dry Results - Vitals Vitals: Oxygen O2 Source Room air PD MEDICAL DECISION MAKING - ED course Complexity details: considered differential (Some postoperative nausea and vomiting. She states 1 of the wounds had a partial dehiscence with the glue coming loose and she is concerned about the it being open. As able to re-glue it and reinforce it with some Steri-Strips. Gave some oral antiemetic and she did feel better after bit.), d/w patient Departure - Departure Disposition: 01 Home, Self Care Clinical Impression: Postoperative vomiting, Visit for wound check Condition: Stable Record reviewed to determine appropriate education?: Yes Instructions: ED Nausea Vomiting Follow-Up: Yasmin Luo ARNP, [employer] [Primary Care Provider] - Diego Xiong MD [Provider Admit Priv/Credential] - Prescriptions: Promethazine [Phenergan] 25 mg PO Q6H PRN #10 tab PRN Reason: Nausea / Vomiting Comments: Continue the postoperative instructions. You can try Phenergan instead of Zofran to see if it works on the nausea better. Continue normal wound care. Discharge Date/Time: 07/05/19 22:41
[2019-07-05] MEDS ORDERED: ACETAMINOPHEN 325 MG TABLET PO STA (21:57)
[2019-07-05] MEDS ORDERED: PROMETHAZINE 25 MG TABLET PO STA (21:57)
== END 2019-07-05 22:41 | disposition home or self-care (01) ==
LOC: ED 20:23
DX: R11.2 Nausea with vomiting, unspecified (principal); T81.31XA Disruption of external operation (surgical) wound, not elsewhere classified, initial encounter; Y83.8 Other surgical procedures as the cause of abnormal reaction of the patient, or of later complication, without mention of misadventure at the time of the procedure; F17.200 Nicotine dependence, unspecified, uncomplicated
CPT/HCPCS: 99282; 99284; A9270; Q0169

== ENCOUNTER 2019-08-09 12:43 | Emergency (ER) | payer OTHER ==
[2019-08-09] MEDS ORDERED: SODIUM CHLORIDE 0.9% 1,000 ML IV ONE ×2 (13:22→15:16)
--- NOTE | 2019-08-09 13:24 | ED Physician Documentation ---
PD HPI SYNCOPE - Stated complaint Stated Complaint: SYNCOPE - Chief complaint Chief Complaint: Neuro - History obtained from History obtained from: Patient, Family - History of Present Illness Witnessed: Witnessed Timing - onset: Today Duration: Seconds Preceding symptoms: Vision changes, Light headed Associated symptoms: Headache. No: Seizure, Incontinant of urine, Incontinant of stool Contributing factors: Just stood up Injury occurred: Fell, Head injury Similar symptoms before: No diagnosis Recently seen: Clinic - Additional information Additional information: 23-year-old female who has been having issues with lightheadedness and dizziness over the past 2 months has had a syncopal episode today. She answered the phone and got up to go into the kitchen and collapsed in the kitchen. Her was there to attend to her immediately and she has a headache and some nausea. She did hit her head and has an 8/10 headache and nausea. Patient has been having some issues with lightheadedness and dizziness prior to removal of her gallbladder about 5 weeks ago. She is continued to have some nausea and vomiting and intermittent abdominal pain as well as diarrhea about a week after having her gallbladder out. She does not feel that she drinks adequate amount of fluid. Review of Systems Constitutional: denies: Fever Eyes: denies: Decreased vision Ears: denies: Ear pain Nose: denies: Congestion Throat: denies: Sore throat Cardiac: denies: Chest pain / pressure, Palpitations, Pedal edema, Calf pain Respiratory: denies: Dyspnea, Cough GI: reports: Abdominal Pain, Nausea, Vomiting, Diarrhea : denies: Dysuria, Frequency Skin: denies: Rash Musculoskeletal: denies: Neck pain, Back pain Neurologic: reports: Syncope, Headache, Head injury, LOC. denies: Generalized weakness, Focal weakness, Numbness PD PAST MEDICAL HISTORY - Past Medical History Cardiovascular: Other Respiratory: None Neuro: None, Other Endocrine/Autoimmune: None GI: GERD, Cholelithiasis : Chronic bladder infection HEENT: None Psych: Anxiety, Panic attacks, Post traumatic stress disorder Musculoskeletal: Chronic back pain Derm: Eczema - Past Surgical History Past Surgical History: Yes General: Appendectomy /MEDICAL CSR: section HEENT: Tonsil/Adenoidectomy - Present Medications Home Medications: Ambulatory Orders Medication Instructions Recorded Confirmed Propranolol HCl 40 mg PO BID PRN 07/03/19 07/04/19 Ondansetron Odt [Zofran] 4 mg TL Q6H PRN #10 tablet 07/04/19 Oxycodone HCl/Acetaminophen 1 each PO Q6H PRN #15 tablet 07/04/19 [Oxycodone-Acetaminophen 5-325] Promethazine [Phenergan] 25 mg PO Q6H PRN #10 tab 07/05/19 Nitrofurantoin Monohyd/M-Cryst 100 mg PO BID #10 capsule 08/09/19 [Macrobid 100 mg Capsule] - Allergies Allergies/Adverse Reactions: Allergies Allergy/AdvReac Type Severity Reaction Status Date / Time pineapple Allergy Severe Edema Verified 08/09/19 12:52 ирина Allergy Hives Verified 08/09/19 12:52 peanut Allergy Anaphylaxis Verified 08/09/19 12:52 Latex, Natural Rubber AdvReac Rash Verified 08/09/19 12:52 nuts Allergy Severe Anaphylaxis Uncoded 08/09/19 12:52 - Social History Does the pt smoke?: Yes Smoking Status: Current every day smoker Does the pt drink ETOH?: Yes Does the pt have substance abuse?: No - Immunizations Immunizations are current?: Yes - POLST Patient has POLST: No PD ED PE NORMAL - Vitals Vital signs reviewed: Yes (normal ) - General General: Alert and oriented X 3, No acute distress, Well developed/nourished - HEENT HEENT: PERRL, EOMI, Ears normal, Other (dry mucous membranes. There is tenderness to the occiput without erythema, abrasion or laceration ) - Neck Neck: Supple, no meningeal sign, No bony TTP - Cardiac Cardiac: RRR, No murmur - Respiratory Respiratory: No respiratory distress, Clear bilaterally - Abdomen Abdomen: Soft, Other (mild left sided tenderness to the mid abdomen near hernia surgical site without erythema, swelling or mass. ) - Back Back: No CVA TTP, No spinal TTP - Derm Derm: Normal color, Warm and dry, No rash - Extremities Extremities: No deformity, No edema - Neuro Neuro: Alert and oriented X 3, bulk tank driver 2-12 intact, No motor deficit, No sensory deficit, Normal speech Eye Opening: Spontaneous Motor: Obeys Commands Verbal: Oriented GCS Score: 15 - Psych Psych: Normal mood, Normal affect Results - Vitals Vitals: Vital Signs - 24 hr 08/09/19 08/09/19 08/09/19 12:48 13:10 14:10 Temperature 36.6 C Heart Rate 91 101 H Respiratory 16 20 16 Rate Blood Pressure 123/72 120/73 116/74 O2 Saturation 97 98 100 08/09/19 08/09/19 08/09/19 14:25 15:04 15:05 Temperature Heart Rate 89 97 84 Respiratory 16 18 18 Rate Blood Pressure 120/76 116/71 118/78 O2 Saturation 98 97 08/09/19 08/09/19 15:06 15:56 Temperature 36.7 C Heart Rate 112 H 85 Respiratory 18 16 Rate Blood Pressure 109/80 117/75 O2 Saturation 100 98 Oxygen O2 Source Room air - EKG (time done) 1326 Rate: Rate (enter#) (100) Rhythm: Sinus tachycardia Ischemia: Non specific changes Compare to prior EKG: Changed from prior EKG (SPT 01-20-2016 the rate has decreased and the repolarization abnormalities have resovled. ), Old EKG unavailable Computer interpretation: Agree with computer - Labs Labs: Laboratory Tests 08/09/19 08/09/19 08/09/19 14:14 14:14 15:04 WBC 10.3 RBC 3.90 L Hgb 11.6 L Hct 35.5 L MCV 91.0 MCH 29.7 MCHC 32.7 RDW 13.7 Plt Count 206 MPV 10.1 Neut # (Auto) 7.8 H Lymph # (Auto) 1.9 [place] # (Auto) 0.5 Eos # (Auto) 0.0 Baso # (Auto) 0.0 Absolute Nucleated RBC 0.00 Nucleated RBC % 0.0 Sodium 138 Potassium 3.8 Chloride 104 Carbon Dioxide 24 Anion Gap 10.0 BUN 13 Creatinine 0.5 Estimated GFR (MDRD) 150 Glucose 99 Calcium 8.8 Total Bilirubin 1.2 H AST 18 ALT 13 Alkaline Phosphatase 85 Total Protein 7.8 Albumin 4.0 Globulin 3.8 Albumin/Globulin Ratio 1.1 Lipase 28 Urine Color LT. YELLOW Urine Clarity CLOUDY Urine pH 7.0 Ur Specific [place] 1.010 Urine Protein NEGATIVE Urine Glucose (UA) NEGATIVE Urine Ketones NEGATIVE Urine Occult Blood NEGATIVE Urine Nitrite NEGATIVE Urine Bilirubin NEGATIVE Urine Urobilinogen 0.2 (NORMAL) Ur Leukocyte Esterase LARGE H Urine RBC 0-5 Urine WBC 6-10 H Ur Squamous Epith Cells MANY Squamous H Urine Bacteria None Seen Ur Microscopic Review INDICATED Urine Culture Comments NOT INDICATED Urine HCG, Qual Ethyl Alcohol < 5.0 08/09/19 15:04 WBC RBC Hgb Hct MCV MCH MCHC RDW Plt Count MPV Neut # (Auto) Lymph # (Auto) [place] # (Auto) Eos # (Auto) Baso # (Auto) Absolute Nucleated RBC Nucleated RBC % Sodium Potassium Chloride Carbon Dioxide Anion Gap BUN Creatinine Estimated GFR (MDRD) Glucose Calcium Total Bilirubin AST ALT Alkaline Phosphatase Total Protein Albumin Globulin Albumin/Globulin Ratio Lipase Urine Color Urine Clarity Urine pH Ur Specific [place] 1.010 Urine Protein Urine Glucose (UA) Urine Ketones Urine Occult Blood Urine Nitrite Urine Bilirubin Urine Urobilinogen Ur Leukocyte Esterase Urine RBC Urine WBC Ur Squamous Epith Cells Urine Bacteria Ur Microscopic Review Urine Culture Comments Urine HCG, Qual NEGATIVE Ethyl Alcohol Procedures - IVC sono (time) 1320 Bedside IVC sono: IVC measures (cm) (1.12), IVC collapsed c insp (cm) (complete), Dehydration (est 1-2 liter deficit) PD MEDICAL DECISION MAKING - ED course Complexity details: reviewed results, re-evaluated patient, considered differential, d/w patient, d/w family ED course: 23-year-old female with nausea and vomiting and is found to be dehydrated she has urinary tract infection as well she is treated in the emergency department with 2 L normal saline as well as a gram of Rocephin IV. She had a syncopal episode and her diagnostics were otherwise unremarkable including CT of the head. She is improved at the conclusion of treatment. Departure - Departure Disposition: 01 Home, Self Care Clinical Impression: Dehydration Urinary tract infection Qualifiers: Urinary tract infection type: acute cystitis Hematuria presence: without hematuria Qualified Code(s): N30.00 - Acute cystitis without hematuria Syncope Qualifiers: Syncope type: vasovagal syncope Qualified Code(s): R55 - Syncope and collapse Condition: Stable Instructions: ED Dehydration, ED Syncope Vasovagal, ED UTI Cystitis Female Follow-Up: Yasmin Luo ARNP, [employer] [Primary Care Provider] - Prescriptions: Nitrofurantoin Monohyd/M-Cryst [Macrobid 100 mg Capsule] 100 mg PO BID #10 capsule
[2019-08-09 14:21] LABS: BASOPHILS % (AUTO) 0.2 %; EOSINOPHILS % (AUTO) 0.4 %; HGB - HEMOGLOBIN 11.6 g/dL (12.0-16.0); LYMPHOCYTES # (AUTO) 1.9 10^3/uL (1.5-3.5); MEAN CORPUSCULAR HEMOGLOBIN 29.7 pg (27.0-31.0); MEAN CORPUSCULAR HGB CONC 32.7 g/dL (32.0-36.0); MEAN PLATELET VOLUME 10.1 fL (7.9-10.8); MONOCYTES # (AUTO) 0.5 10^3/uL (0.0-1.0); NEUTROPHILS # (AUTO) 7.8 10^3/uL (1.5-6.6); NEUTROPHILS % (AUTO) 76.1 %; PLT - PLATELET COUNT 206 10^3/uL (130-450); RED CELL DISTRIBUTION WIDTH 13.7 % (12.0-15.0); WHITE BLOOD COUNT 10.3 x10^3/uL (4.8-10.8)
--- NOTE | 2019-08-09 14:37 | CT Report ---
Reason: syncope head injury headache Procedure Date: 08/09/2019 Accession Number: [id number] / [id number] Procedure: CT - HEAD WO CPT Code: FULL RESULT: CT HEAD WITHOUT CONTRAST INDICATION: 23-year-old female. Syncope. Head injury. Headache. TECHNIQUE: Sequential 5 mm axial images were obtained through the brain. In accordance with CT protocol optimization, one or more of the following dose reduction techniques were utilized for this exam: automated exposure control, adjustment of mA and/or KV based on patient size, or use of iterative reconstructive technique. FINDINGS: There appears to be a small hematoma in the scalp over the posterior aspect of the head paracentrally to the right. No underlying skull fracture is demonstrated. The skull base appears intact. The middle ear cavities and imaged mastoid air cells appear clear. There is no intracranial hemorrhage or abnormal extra-axial fluid collection. No mass effect or midline shift. Attenuation of the cortex and white matter appears normal. Ventricular size is normal. IMPRESSION: 1. There appears to be a small hematoma in the scalp over the posterior aspect of the head. 2. No acute intracranial pathology is demonstrated. In particular, no skull or skull base fracture is identified and there is no intracranial hemorrhage.
[2019-08-09 14:38] LABS: ALBUMIN/GLOBULIN RATIO 1.1 (1.0-2.2); ALKALINE PHOSPHATASE 85 IU/L (42-121); ALT ALANINE AMINOTRANSFERASE 13 IU/L (10-60); AST ASPARTATE AMINOTRANSFERASE 18 IU/L (10-42); BILIRUBIN,TOTAL 1.2 mg/dL (0.2-1.0); BUN - BLOOD UREA NITROGEN 13 mg/dL (6-20); CALCIUM 8.8 mg/dL (8.5-10.3); CARBON DIOXIDE - CO2 24 mmol/L (21-32); CHLORIDE 104 mmol/L (101-111); CREATININE 0.5 mg/dL (0.4-1.0); GFR - MDRD 150 (>89); GLUCOSE 99 mg/dL (70-100); LIPASE 28 U/L (22-51); SODIUM 138 mmol/L (135-145); TOTAL PROTEIN 7.8 g/dL (6.7-8.2)
[2019-08-09 15:09] LABS: BILIRUBIN,URINE NEGATIVE (NEGATIVE); GLUCOSE, URINE (UA) NEGATIVE (NEGATIVE); KETONES,URINE (UA) NEGATIVE (NEGATIVE); LEUKOCYTE ESTERASE, URINE LARGE (NEGATIVE); NITRITE,URINE NEGATIVE (NEGATIVE); OCCULT BLOOD,URINE NEGATIVE (NEGATIVE); PROTEIN,URINE NEGATIVE (NEGATIVE); UROBILINOGEN,URINE 0.2 (NORMAL) E.U./dL (NORMAL)
[2019-08-09 15:12] LABS: CLARITY,URINE CLOUDY (CLEAR); HCG UR QUAL NEGATIVE
[2019-08-09 15:21] LABS: BACTERIA,URINE None Seen /HPF (None Seen); RBC,URINE 0-5 /HPF (0-5); SQUAMOUS EPITHELIAL CELL,UR MANY Squamous (<= Few)
[2019-08-09] MEDS ORDERED: cefTRIAXone 1 GM in SODIUM CHLORIDE 0.9% MINIBAG 100 ML IV STA (15:27)
[2019-08-09 15:58] VITALS: BP 117/75
== END 2019-08-09 15:22 | disposition home or self-care (01) ==
LOC: ED 12:43
DX: E86.0 Dehydration (principal); N30.00 Acute cystitis without hematuria; R55 Syncope and collapse; F17.200 Nicotine dependence, unspecified, uncomplicated
CPT/HCPCS: 36415; 70450; 80053; 80320; 81001; 81003; 81025; 83690; 85025; 87086; 93005; 99284

== ENCOUNTER 2019-09-15 08:00 | Outpatient (CLI) | payer OTHER ==
[2019-09-15 18:05] LABS: BILIRUBIN,URINE NEGATIVE (NEGATIVE); GLUCOSE, URINE (UA) NEGATIVE (NEGATIVE); KETONES,URINE (UA) NEGATIVE (NEGATIVE); LEUKOCYTE ESTERASE, URINE NEGATIVE (NEGATIVE); NITRITE,URINE NEGATIVE (NEGATIVE); OCCULT BLOOD,URINE SMALL (NEGATIVE); PROTEIN,URINE NEGATIVE (NEGATIVE); UROBILINOGEN,URINE 0.2 (NORMAL) E.U./dL (NORMAL)
[2019-09-15 18:08] LABS: CLARITY,URINE TURBID (CLEAR)
[2019-09-15 18:48] LABS: AMORPHOUS SEDIMENT,UR Moderate /LPF; BACTERIA,URINE Moderate /HPF (None Seen); MUCUS,URINE Moderate Strands; SQUAMOUS EPITHELIAL CELL,UR MOD Squamous (<= Few)
[2019-09-15 18:49] LABS: CRYSTALS,URINE 11-25 Ca Oxalate /LPF
== END 2019-09-15 23:59 | disposition home or self-care (01) ==
LOC: LAB.R 08:00
PROVIDERS: ATTEND Nurse Practitioner
DX: N39.0 Urinary tract infection, site not specified (principal)
CPT/HCPCS: 81001; 81003; 87086

== ENCOUNTER 2019-09-15 10:15 | Outpatient (CLI) | payer OTHER ==
[2019-09-15 10:31] LABS: BASOPHILS % (AUTO) 0.2 %; EOSINOPHILS # (AUTO) 0.1 10^3/uL (0.0-0.7); HGB - HEMOGLOBIN 11.9 g/dL (12.0-16.0); LYMPHOCYTES # (AUTO) 1.8 10^3/uL (1.5-3.5); LYMPHOCYTES % (AUTO) 36.9 %; MEAN CORPUSCULAR HEMOGLOBIN 29.5 pg (27.0-31.0); MEAN CORPUSCULAR HGB CONC 32.2 g/dL (32.0-36.0); MEAN CORPUSCULAR VOLUME 91.6 fL (81.0-99.0); MEAN PLATELET VOLUME 9.6 fL (7.9-10.8); MONOCYTES # (AUTO) 0.3 10^3/uL (0.0-1.0); MONOCYTES % (AUTO) 6.8 %; NEUTROPHILS # (AUTO) 2.7 10^3/uL (1.5-6.6); NEUTROPHILS % (AUTO) 54.9 %; PLT - PLATELET COUNT 274 10^3/uL (130-450); RED BLOOD COUNT 4.03 10^6/uL (4.20-5.40); RED CELL DISTRIBUTION WIDTH 13.2 % (12.0-15.0)
[2019-09-15 10:42] LABS: ALBUMIN 4.4 g/dL (3.2-5.5); ALBUMIN/GLOBULIN RATIO 1.2 (1.0-2.2); CALCIUM 9.1 mg/dL (8.5-10.3); CREATININE 0.6 mg/dL (0.4-1.0); TOTAL PROTEIN 8.2 g/dL (6.7-8.2)
== END 2019-09-15 10:16 | disposition home or self-care (01) ==
LOC: LAB 10:15
PROVIDERS: ATTEND Nurse Practitioner
DX: R10.9 Unspecified abdominal pain (principal); N39.0 Urinary tract infection, site not specified; R19.7 Diarrhea, unspecified; N92.0 Excessive and frequent menstruation with regular cycle; R53.83 Other fatigue
CPT/HCPCS: 36415; 80053; 81001; 85025

== ENCOUNTER 2019-10-10 22:18 | Outpatient (CLI) | payer OTHER | END 2019-10-10 22:19 | disposition critical access hospital (66) | LOC: EMS 22:18 | PROVIDERS: ATTEND Surgery | DX: R56.9 Unspecified convulsions (principal) | CPT/HCPCS: A0425; A0427 ==

== ENCOUNTER 2019-10-11 03:41 | Outpatient (CLI) | payer OTHER | END 2019-10-11 03:42 | disposition short-term general hospital (02) | LOC: EMS 03:41 | PROVIDERS: ATTEND Surgery | DX: R56.9 Unspecified convulsions (principal) | CPT/HCPCS: A0425; A0426 ==

== ENCOUNTER 2019-10-13 15:36 | Outpatient (CLI) | payer OTHER | END 2019-10-13 15:37 | disposition EMS.NT | LOC: EMS 15:36 | PROVIDERS: ATTEND Surgery | DX: R53.1 Weakness (principal) ==

== ENCOUNTER 2019-10-13 16:06 | Emergency (ER) | payer OTHER ==
[2019-10-13 17:35] LABS: BASOPHILS % (AUTO) 0.5 %; EOSINOPHILS % (AUTO) 0.3 %; LYMPHOCYTES # (AUTO) 1.9 10^3/uL (1.5-3.5); LYMPHOCYTES % (AUTO) 30.6 %; MEAN CORPUSCULAR HEMOGLOBIN 31.3 pg (27.0-31.0); MEAN CORPUSCULAR HGB CONC 34.2 g/dL (32.0-36.0); MEAN CORPUSCULAR VOLUME 91.4 fL (81.0-99.0); MEAN PLATELET VOLUME 9.7 fL (7.9-10.8); MONOCYTES # (AUTO) 0.5 10^3/uL (0.0-1.0); MONOCYTES % (AUTO) 7.3 %; NEUTROPHILS # (AUTO) 3.9 10^3/uL (1.5-6.6); NEUTROPHILS % (AUTO) 61.1 %; PLT - PLATELET COUNT 273 10^3/uL (130-450); RED BLOOD COUNT 3.84 10^6/uL (4.20-5.40); RED CELL DISTRIBUTION WIDTH 13.4 % (12.0-15.0); WHITE BLOOD COUNT 6.3 x10^3/uL (4.8-10.8)
[2019-10-13 17:46] LABS: ALBUMIN 4.5 g/dL (3.2-5.5); ALBUMIN/GLOBULIN RATIO 1.1 (1.0-2.2); CREATININE 0.5 mg/dL (0.4-1.0); TOTAL PROTEIN 8.6 g/dL (6.7-8.2)
[2019-10-13] MEDS ORDERED: SODIUM CHLORIDE 0.9% 1,000 ML IV ONE (17:54)
--- NOTE | 2019-10-13 17:55 | ED Physician Documentation ---
History of Present Illness - Stated complaint Stated Complaint: DEHYDRATION - Chief complaint Chief Complaint: Abd Pain - History obtained from History obtained from: Patient (24-year-old woman with history of seizures since age 16. Never had a thorough work-up because she is too busy with her children. It sounds like they may be nonepileptic episodes. She went to [place] on Wednesday of this week, she had had 8 episodes that day. She was admitted, per her had a negative work-up but left AMA. She is never seen a neurologist outpatient for this, never been on antiepileptic drugs. Ever since leaving the hospital just feels weak and dizzy and dehydrated and nauseous. She has some mild lower abdominal pain. No vomiting now. She has had some diarrhea. She does note that her seizures are worse when her who is in the [place], is in town. She notes that the relationship is not good and they are in counseling for that. She does see a psychiatrist.) Review of Systems Ten Systems: 10 systems reviewed and negative Constitutional: reports: Fatigue. 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 HEENT: Tonsil/Adenoidectomy - Present Medications Home Medications: Ambulatory Orders Medication Instructions Recorded Confirmed Propranolol HCl 40 mg PO BID PRN 07/03/19 07/04/19 Escitalopram [Lexapro] 10 mg PO DAILY 10/13/19 10/13/19 Labetalol [Trandate] 100 mg PO DAILY 10/13/19 10/13/19 Prazosin [Minipress] 1 mg PO QPM 10/13/19 10/13/19 - Allergies Allergies/Adverse Reactions: Allergies Allergy/AdvReac Type Severity Reaction Status Date / Time nut - unspecified Allergy Severe Anaphylaxis Verified 10/13/19 16:12 pineapple Allergy Severe Edema Verified 10/13/19 16:12 ирина Allergy Hives Verified 10/13/19 16:12 peanut Allergy Anaphylaxis Verified 10/13/19 16:12 Latex, Natural Rubber AdvReac Rash Verified 10/13/19 16:12 - Social History Does the pt smoke?: Yes Smoking Status: Current every day smoker Does the pt drink ETOH?: Yes Does the pt have substance abuse?: No - Immunizations Immunizations are current?: Yes - POLST Patient has POLST: No PD ED PE NORMAL - Vitals Vital signs reviewed: Yes - General General: Alert and oriented X 3, No acute distress - HEENT HEENT: PERRL, EOMI - Neck Neck: Supple, no meningeal sign, No bony TTP - Cardiac Cardiac: RRR, No murmur - Respiratory Respiratory: No respiratory distress, Clear bilaterally - Abdomen Abdomen: Non tender - Derm Derm: Normal color, Warm and dry, No rash - Extremities Extremities: No edema, No calf tenderness / cord - Neuro Neuro: Alert and oriented X 3, surveyor mine 2-12 intact, No motor deficit, No sensory deficit, Normal speech Results - Vitals Vitals: Vital Signs - 24 hr 10/13/19 10/13/19 16:09 18:40 Temperature 36.7 C 37.1 C Heart Rate 88 79 Respiratory 18 18 Rate Blood Pressure 126/80 120/83 H O2 Saturation 99 100 Oxygen O2 Source Room air - Labs Labs: Laboratory Tests 10/13/19 10/13/19 17:29 17:29 WBC 6.3 RBC 3.84 L Hgb 12.0 Hct 35.1 L MCV 91.4 MCH 31.3 H MCHC 34.2 RDW 13.4 Plt Count 273 MPV 9.7 Neut # (Auto) 3.9 Lymph # (Auto) 1.9 Dyer # (Auto) 0.5 Eos # (Auto) 0.0 Baso # (Auto) 0.0 Absolute Nucleated RBC 0.00 Nucleated RBC % 0.0 Sodium 139 Potassium 3.2 L Chloride 104 Carbon Dioxide 23 Anion Gap 12.0 BUN 6 Creatinine 0.5 Estimated GFR (MDRD) 149 Glucose 96 Calcium 9.0 Total Bilirubin 1.0 AST 22 ALT 16 Alkaline Phosphatase 89 Total Protein 8.6 H Albumin 4.5 Globulin 4.1 Albumin/Globulin Ratio 1.1 Lipase 24 PD MEDICAL DECISION MAKING - ED course ED course: 24-year-old woman with lightheadedness, probably pseudoseizures a few days ago, less likely seizures. She declined IV fluids despite her chief complaint. No emergency medical condition identified otherwise. Departure - Departure Disposition: 01 Home, Self Care Clinical Impression: Syncope Qualifiers: Syncope type: unspecified Qualified Code(s): R55 - Syncope and collapse Condition: Good Instructions: ED Dizziness UKO Comments: As discussed, I think it is imperative for you to follow-up with a neurologist. Most of a local neurologist have a long wait to get in so I would make an appointment as soon as possible. One option would be [facility] in [place], . Return for new worsening symptoms. Drink plenty of fluids.
[2019-10-13 18:55] VITALS: BP 128/87
== END 2019-10-13 18:56 | disposition home or self-care (01) ==
LOC: ED 16:06
DX: R55 Syncope and collapse (principal); R42 Dizziness and giddiness; R53.1 Weakness; R11.0 Nausea; R10.30 Lower abdominal pain, unspecified; R19.7 Diarrhea, unspecified; G40.909 Epilepsy, unspecified, not intractable, without status epilepticus; F17.200 Nicotine dependence, unspecified, uncomplicated
CPT/HCPCS: 36415; 80053; 83690; 85025; 99283; 99284

== ENCOUNTER 2019-11-02 21:39 | Emergency (ER) | payer OTHER ==
--- NOTE | 2019-11-02 22:27 | ED Physician Documentation ---
PD HPI CHEST PAIN - Stated complaint Stated Complaint: CHEST PX,DIZZY - Chief complaint Chief Complaint: Cardiac - History obtained from History obtained from: Patient - History of Present Illness Timing - onset: How many weeks ago (1) Timing - onset during: Rest Timing - duration: Weeks (1) Timing - details: Gradual onset, Still present, Waxing and waning Quality: Sharp, Pain Location: Substernal, Right chest, Right shoulder/arm Radiation: Back Improved by: Rest Worsened by: Inspiration, Movement, Palpation Associated symptoms: Shortness of air Similar symptoms before: No diagnosis Recently seen: Emergency Dept, Admitted - Additional information Additional information: 24-year-old female with a history of recurrent seizure and PTSD with panic attacks has developed right-sided chest pain tenderness to her chest wall and a sensation of near syncope. She has been hospitalized at [facility] in [place] for seizure and she has pending further evaluation by neurology. At that time she did leave the hospital AMA. She indicates that she has had episodes of this pain in her chest for the past 6 months that are off and on. She complains of shortness of breath with exertion that is intermittent. She denies chest wall contusion, sobbing, wheezing or cough. Review of Systems Constitutional: denies: Fever Eyes: denies: Decreased vision Ears: denies: Ear pain Nose: denies: Rhinorrhea / runny nose, Congestion Throat: reports: Sore throat Cardiac: reports: Chest pain / pressure. denies: Palpitations, Pedal edema, Calf pain Respiratory: reports: Dyspnea. denies: Cough GI: reports: Nausea. 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 HEENT: Tonsil/Adenoidectomy - Present Medications Home Medications: Ambulatory Orders Medication Instructions Recorded Confirmed Propranolol HCl 40 mg PO BID PRN 07/03/19 07/04/19 Escitalopram [Lexapro] 10 mg PO DAILY 10/13/19 10/13/19 Labetalol [Trandate] 100 mg PO DAILY 10/13/19 10/13/19 Prazosin [Minipress] 1 mg PO QPM 10/13/19 10/13/19 Albuterol Sulf [Ventolin Hfa 1 - 2 puffs INH Q4HR PRN #1 inhaler 11/02/19 Inhaler] Azithromycin [Zithromax] 250 mg PO DAILY #4 tablet 11/02/19 - Allergies Allergies/Adverse Reactions: Allergies Allergy/AdvReac Type Severity Reaction Status Date / Time nut - unspecified Allergy Severe Anaphylaxis Verified 11/02/19 21:45 pineapple Allergy Severe Edema Verified 11/02/19 21:45 ирина Allergy Hives Verified 11/02/19 21:45 peanut Allergy Anaphylaxis Verified 11/02/19 21:45 Latex, Natural Rubber AdvReac Rash Verified 11/02/19 21:45 - Social History Does the pt smoke?: Yes Smoking Status: Current every day smoker Does the pt drink ETOH?: Yes Does the pt have substance abuse?: No - Immunizations Immunizations are current?: Yes - POLST Patient has POLST: No PD ED PE NORMAL - Vitals Vital signs reviewed: Yes (hypotensive mild ) - General General: Alert and oriented X 3, No acute distress, Well developed/nourished - HEENT HEENT: Atraumatic, PERRL, EOMI, Ears normal, Moist mucous membranes - Neck Neck: Supple, no meningeal sign, No bony TTP - Cardiac Cardiac: RRR, No murmur - Respiratory Respiratory: No respiratory distress, Clear bilaterally, Other (There is tendereness to the chest wall along the right parasternal chest and along the right lower costal margin. ) - Abdomen Abdomen: Soft, Non tender, No organomegaly - Back Back: No CVA TTP, No spinal TTP - Derm Derm: Normal color, Warm and dry, No rash - Extremities Extremities: No deformity, No edema, No calf tenderness / cord - Neuro Neuro: Alert and oriented X 3, retail office associate 2-12 intact, No motor deficit, No sensory deficit, Normal speech Eye Opening: Spontaneous Motor: Obeys Commands Verbal: Oriented GCS Score: 15 - Psych Psych: Other (mood is aloof and the affect is blunted) Results - Vitals Vitals: Vital Signs - 24 hr 11/02/19 11/02/19 21:42 22:59 Temperature 36.9 C Heart Rate 70 80 Respiratory 16 18 Rate Blood Pressure 101/55 L O2 Saturation 98 Oxygen O2 Source Room air - EKG (time done) 2148 Rate: Rate (enter#) (80) Rhythm: NSR Ischemia: Non specific changes Compare to prior EKG: Changed from prior EKG (SPT 08-09-19 rate has decreased) Computer interpretation: Agree with computer - Labs Labs: Laboratory Tests 11/02/19 11/02/19 11/02/19 22:54 22:54 22:54 WBC 11.0 H RBC 3.60 L Hgb 11.3 L Hct 34.7 L MCV 96.4 MCH 31.4 H MCHC 32.6 RDW 14.0 Plt Count 261 MPV 10.3 Neut # (Auto) 7.8 H Lymph # (Auto) 2.1 Fleming # (Auto) 0.7 Eos # (Auto) 0.2 Baso # (Auto) 0.1 Absolute Nucleated RBC 0.00 Nucleated RBC % 0.0 D-Dimer 214.5 Sodium 139 Potassium 3.9 Chloride 107 Carbon Dioxide 24 Anion Gap 8.0 BUN 14 Creatinine 0.7 Estimated GFR (MDRD) 101 Glucose 102 H Calcium 9.1 Total Bilirubin 0.5 AST 19 ALT 16 Alkaline Phosphatase 85 Total Protein 7.7 Albumin 4.1 Globulin 3.6 Albumin/Globulin Ratio 1.1 Lipase 39 PD MEDICAL DECISION MAKING - ED course Complexity details: reviewed old records, reviewed results, re-evaluated patient, considered differential, d/w patient ED course: 24-year-old female with chief complaint of chest wall pain and exertional dyspnea has negative D dimer and chest x-ray without evidence of infiltrate. She does respond to a DuoNeb administered here in the department. She feels some improvement in her air movement. This is confirmed by evaluation by the respiratory therapist. She is taught the use of a spacer. We do not have a way to dispense an inhaler to her. She does appear to have a subclinical asthma and she indicates that she gets bronchitis frequently that requires an antibiotic but she does not usually use an inhaler. She does not currently have a cough but developed sore throat this morning. She was given a dose of dexamethasone here for the chest wall pain this will help with her reactive airway disease as well and we will prescribe an inhaler and the Z-Gopi for her. She has follow-up with her primary next week and I have indicated to her that she may need to be on some form of asthma management other than just a rescue inhaler. Departure - Departure Disposition: 01 Home, Self Care Clinical Impression: Costochondritis, acute Reactive airway disease Qualifiers: Asthma severity: mild Asthma persistence: intermittent Asthma complication type: with acute exacerbation Qualified Code(s): J45.21 - Mild intermittent asthma with (acute) exacerbation Condition: Stable Instructions: ED Chest Pain Costochondritis, ED Reactive Airway Disease Follow-Up: Yasmin Luo ARNP, PHOTOGRAPHER'S ASSISTANT-C [Primary Care Provider] - Prescriptions: Albuterol Sulf [Ventolin Hfa Inhaler] 1 - 2 puffs INH Q4HR PRN #1 inhaler PRN Reason: Shortness Of Air/Wheezing Azithromycin [Zithromax] 250 mg PO DAILY #4 tablet
[2019-11-02] MEDS ORDERED: DEXAMETHASONE 10 MG/ML VIAL PO STA (22:47)
[2019-11-02] MEDS ORDERED: CHERRY SYRUP 10 ML UDC PO ONE (22:47)
[2019-11-02] MEDS ORDERED: IPRATROPIUM/ALBUTEROL 3 ML NEB INH STA (22:47)
[2019-11-02 22:59] LABS: BASOPHILS # (AUTO) 0.1 10^3/uL (0.0-0.1); BASOPHILS % (AUTO) 0.5 %; EOSINOPHILS # (AUTO) 0.2 10^3/uL (0.0-0.7); HGB - HEMOGLOBIN 11.3 g/dL (12.0-16.0); LYMPHOCYTES # (AUTO) 2.1 10^3/uL (1.5-3.5); LYMPHOCYTES % (AUTO) 19.2 %; MEAN CORPUSCULAR HEMOGLOBIN 31.4 pg (27.0-31.0); MEAN CORPUSCULAR HGB CONC 32.6 g/dL (32.0-36.0); MEAN CORPUSCULAR VOLUME 96.4 fL (81.0-99.0); MEAN PLATELET VOLUME 10.3 fL (7.9-10.8); MONOCYTES # (AUTO) 0.7 10^3/uL (0.0-1.0); MONOCYTES % (AUTO) 6.5 %; NEUTROPHILS # (AUTO) 7.8 10^3/uL (1.5-6.6); NEUTROPHILS % (AUTO) 71.2 %; PLT - PLATELET COUNT 261 10^3/uL (130-450)
[2019-11-02 23:12] LABS: ALBUMIN 4.1 g/dL (3.2-5.5); ALBUMIN/GLOBULIN RATIO 1.1 (1.0-2.2); BILIRUBIN,TOTAL 0.5 mg/dL (0.2-1.0); CALCIUM 9.1 mg/dL (8.5-10.3); CREATININE 0.7 mg/dL (0.4-1.0); TOTAL PROTEIN 7.7 g/dL (6.7-8.2)
[2019-11-02] MEDS ORDERED: AZITHROMYCIN 250 MG TABLET PO STA (23:37)
[2019-11-02 23:43] VITALS: BP 94/62
--- NOTE | 2019-11-02 23:46 | XRAY Report ---
Reason: chest pain soa Procedure Date: 11/02/2019 Accession Number: [id number] / [id number] Procedure: XR - Chest 2 View X-Ray CPT Code: 91418 Final Report FULL RESULT: EXAM: CHEST RADIOGRAPHY EXAM DATE: 11/02/2019 11:18 PM. CLINICAL HISTORY: Chest pain, SOA. COMPARISON: CHEST 1 VIEW 10/10/2019 11:00 PM. TECHNIQUE: 2 views. FINDINGS: Lungs/Pleura: No focal opacities evident. No pleural effusion. No pneumothorax. Normal volumes. Mediastinum: Heart and mediastinal contours are unremarkable. Other: None. IMPRESSION: No evidence of acute cardiopulmonary process. RADIA
== END 2019-11-02 23:45 | disposition home or self-care (01) ==
LOC: ED 21:39
DX: M94.0 Chondrocostal junction syndrome [Tietze] (principal); J45.21 Mild intermittent asthma with (acute) exacerbation; G40.909 Epilepsy, unspecified, not intractable, without status epilepticus; F43.10 Post-traumatic stress disorder, unspecified; F17.200 Nicotine dependence, unspecified, uncomplicated
CPT/HCPCS: 36415; 71046; 80053; 83690; 85025; 85379; 93005; 94640; 99284; A9270

== ENCOUNTER 2019-11-18 11:30 | Emergency (ER) | payer OTHER ==
[2019-11-18 11:41] VITALS: BP 117/74
[2019-11-18] MEDS ORDERED: CYCLOBENZAPRINE 10 MG TABLET PO STA (12:53)
[2019-11-18] MEDS ORDERED: MELOXICAM 7.5 MG TABLET PO STA (12:53)
[2019-11-18] MEDS ORDERED: DEXAMETHASONE 10 MG/ML VIAL PO STA (12:59)
[2019-11-18] MEDS ORDERED: CHERRY SYRUP 10 ML UDC PO ONE (12:59)
--- NOTE | 2019-11-18 13:01 | ED Physician Documentation ---
History of Present Illness - Stated complaint Stated Complaint: SORE THROAT/NECK PX - Chief complaint Chief Complaint: Heent - History obtained from History obtained from: Patient - History of Present Illness Timing: How many days ago (2) Pain level max: 7 Pain level now: 5 - Additonal information Additional information: 24-year-old female presents to the emergency department complaining of pain in the back of her neck, radiating to the bilateral jaw for the past several days. This is intermittent. Worse with movement and better with rest. No fevers. No sore throat. Does not recall any injury. She is not , breast-feeding or trying to become . No facial swelling. No dental pain. Review of Systems Constitutional: denies: Fever, Chills Nose: denies: Rhinorrhea / runny nose, Congestion Respiratory: denies: Cough, Wheezing GI: denies: Abdominal Pain, Nausea, Vomiting, Diarrhea : denies: Dysuria, Frequency, Unable to Void, Incontinent, Now EGA Skin: denies: Rash Musculoskeletal: denies: Back pain Neurologic: denies: Focal weakness, Numbness PD PAST MEDICAL HISTORY - Past Medical History Past Medical History: Yes Cardiovascular: Other Respiratory: None Neuro: Seizure disorder, Other Endocrine/Autoimmune: None GI: GERD, Cholelithiasis : Chronic bladder infection HEENT: None Psych: Anxiety, Panic attacks, Post traumatic stress disorder Musculoskeletal: Chronic back pain Derm: Eczema - Past Surgical History Past Surgical History: Yes 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 HEENT: Tonsil/Adenoidectomy - Present Medications Home Medications: Ambulatory Orders Medication Instructions Recorded Confirmed Propranolol HCl 40 mg PO BID PRN 07/03/19 07/04/19 Escitalopram [Lexapro] 10 mg PO DAILY 10/13/19 10/13/19 Labetalol [Trandate] 100 mg PO DAILY 10/13/19 10/13/19 Prazosin [Minipress] 1 mg PO QPM 10/13/19 10/13/19 Albuterol Sulf [Ventolin Hfa 1 - 2 puffs INH Q4HR PRN #1 inhaler 11/02/19 Inhaler] Azithromycin [Zithromax] 250 mg PO DAILY #4 tablet 11/02/19 Cyclobenzaprine [Flexeril] 10 mg PO TID PRN #20 tablet 11/18/19 Meloxicam [Mobic] 15 mg PO DAILY PRN #20 tablet 11/18/19 - Allergies Allergies/Adverse Reactions: Allergies Allergy/AdvReac Type Severity Reaction Status Date / Time nut - unspecified Allergy Severe Anaphylaxis Verified 11/18/19 11:42 pineapple Allergy Severe Edema Verified 11/18/19 11:42 ирина Allergy Hives Verified 11/18/19 11:42 peanut Allergy Anaphylaxis Verified 11/18/19 11:42 Latex, Natural Rubber AdvReac Rash Verified 11/18/19 11:42 - Social History Does the pt smoke?: Yes Smoking Status: Current every day smoker Does the pt drink ETOH?: Yes Does the pt have substance abuse?: No - Immunizations Immunizations are current?: Yes - POLST Patient has POLST: No PD ED PE NORMAL - Vitals Vital signs reviewed: Yes - General General: Alert and oriented X 3, No acute distress, Well developed/nourished - HEENT HEENT: PERRL, Ears normal, Moist mucous membranes, Pharynx benign, Dentition benign - Neck Neck: Supple, no meningeal sign, No bony TTP, No bruit, Other (Tender to palpation paraspinal in the cervical region.No adenopathy. Neurovascular intact) - Cardiac Cardiac: RRR, Strong equal pulses - Respiratory Respiratory: No respiratory distress, Clear bilaterally - Derm Derm: Warm and dry, No rash - Neuro Neuro: Alert and oriented X 3 - Psych Psych: Normal mood, Normal affect Results - Vitals Vitals: Vital Signs - 24 hr 11/18/19 11:40 Temperature 37.2 C Heart Rate 98 Respiratory 14 Rate Blood Pressure 117/74 O2 Saturation 98 Oxygen O2 Source Room air - Labs Labs: Laboratory Tests 11/18/19 11/18/19 11:44 11:44 Influenza A (Rapid) Negative Influenza B (Rapid) Negative Group A Strep Rapid Negative PD MEDICAL DECISION MAKING - ED course Complexity details: considered differential, d/w patient ED course: Patient with what appears to be a neck strain. She is well-appearing, nontoxic. Afebrile. No evidence of infection. No facial swelling. No jaw swelling. No neck swelling. Patient counseled regarding signs and symptoms for which I believe and urgent re-evaluation would be necessary. Patient with good understanding of and agreement to plan and is comfortable going home at this time This document was made in part using voice recognition software. While efforts are made to proofread this document, sound alike and grammatical errors may occur. Departure - Departure Disposition: 01 Home, Self Care Clinical Impression: Neck strain Qualifiers: Encounter type: initial encounter Qualified Code(s): S16.1XXA - Strain of muscle, fascia and tendon at neck level, initial encounter Condition: Good Instructions: ED Neck Back Pain General Follow-Up: Yasmin Luo ARNP, COLOR CHECKER [employer]OVING OR YARN-C [Primary Care Provider] - Within 1 week Prescriptions: Cyclobenzaprine [Flexeril] 10 mg PO TID PRN #20 tablet PRN Reason: Spasms Meloxicam [Mobic] 15 mg PO DAILY PRN #20 tablet PRN Reason: pain Comments: Return if you worsen. Follow-up with your doctor for further care. This should improve over the next [address] operate heavy machinery while taking the Flexeril. Discharge Date/Time: 11/18/19 13:07
== END 2019-11-18 13:07 | disposition home or self-care (01) ==
LOC: ED 11:30
DX: S16.1XXA Strain of muscle, fascia and tendon at neck level, initial encounter (principal); X58.XXXA Exposure to other specified factors, initial encounter; F17.200 Nicotine dependence, unspecified, uncomplicated
CPT/HCPCS: 87070; 87275; 87276; 87430; 99283; 99284; A9270

== ENCOUNTER 2019-12-30 00:12 | Outpatient (CLI) | payer OTHER | END 2019-12-30 00:13 | disposition critical access hospital (66) | LOC: EMS 00:12 | PROVIDERS: ATTEND Surgery | DX: R51 Headache (principal); M25.511 Pain in right shoulder; R56.9 Unspecified convulsions; W18.39XA Other fall on same level, initial encounter; Y92.000 Kitchen of unspecified non-institutional (private) residence as the place of occurrence of the external cause | CPT/HCPCS: A0425; A0429 ==

== ENCOUNTER 2019-12-30 00:32 | Emergency (ER) | payer OTHER ==
--- NOTE | 2019-12-30 00:52 | ED Physician Documentation ---
PD HPI Fall - Stated complaint Stated Complaint: SZ - Chief complaint Chief Complaint: Neuro - History obtained from History obtained from: Patient, EMS - History of Present Illness Mechanism of injury: Other (seizure) Fall distance: Unknown Where injury occurred: Home Timing - onset: Today Injury(ies) location: Head, Neck, Right Upper Extremity (right shoulder) Pain level now: 8 Quality of pain: Pain Associated symptoms: Seizures. No: Weakness Symptoms improve with: Nothing Worsens with: Movement, Palpation Contributing factors: No: Anticoagulated, Intoxicated Recently seen: Emergency Dept - Additional information Additional information: BIBA for c/o right shoulder pain, SOSA. patient says she has a seizure d/o with ongoing w/u. she is on keppra and says she was instructed to increase the dose next week. EMS says she has several seizures each day. she says she called 911 due to headache and right shoulder pain since waking on kitchen floor tonight after a seizure; despite EMS report, patient says she was told by her doctor to call 911 if she has more than one seizure in a day, and she says she has had three today. Review of Systems Constitutional: reports: Reviewed and negative Eyes: reports: Reviewed and negative Cardiac: reports: Reviewed and negative Respiratory: reports: Reviewed and negative GI: reports: Nausea, Vomiting. denies: Abdominal Pain : reports: Reviewed and negative Musculoskeletal: reports: Neck pain, Joint pain (right shoulder). denies: Back pain Neurologic: reports: Generalized weakness, Seizure, Headache, Head injury. denies: Focal weakness, Numbness PD PAST MEDICAL HISTORY - Past Medical History Cardiovascular: Other Respiratory: None Neuro: Seizure disorder, Other Endocrine/Autoimmune: None GI: GERD, Cholelithiasis : Chronic bladder infection HEENT: None Psych: Anxiety, Panic attacks, Post traumatic stress disorder Musculoskeletal: Chronic back pain Derm: Eczema - Past Surgical History Past Surgical History: Yes General: Appendectomy /MIDDLE STITCHER: section HEENT: Tonsil/Adenoidectomy - Present Medications Home Medications: Ambulatory Orders Medication Instructions Recorded Confirmed Propranolol HCl 10 mg PO BID PRN 07/03/19 07/04/19 Escitalopram [Lexapro] 10 mg PO DAILY 10/13/19 10/13/19 Prazosin [Minipress] 2 mg PO QPM 11/15/19 11/15/19 Albuterol Sulf [Ventolin Hfa 1 - 2 puffs INH Q4HR PRN #1 inhaler 11/02/19 Inhaler] Escitalopram [Lexapro] 10 mg PO DAILY 12/30/19 12/30/19 Levetiracetam [Keppra] 500 mg PO BID 12/30/19 12/30/19 Potassium Chloride 10 meq PO DAILY 12/30/19 12/30/19 - Allergies Allergies/Adverse Reactions: Allergies Allergy/AdvReac Type Severity Reaction Status Date / Time nut - unspecified Allergy Severe Anaphylaxis Verified 11/18/19 11:42 pineapple Allergy Severe Edema Verified 11/18/19 11:42 ирина Allergy Hives Verified 11/18/19 11:42 morphine Allergy Hives Verified 12/30/19 00:41 peanut Allergy Anaphylaxis Verified 11/18/19 11:42 Latex, Natural Rubber AdvReac Rash Verified 11/18/19 11:42 - Social History Does the pt smoke?: No Smoking Status: Never smoker Does the pt drink ETOH?: Yes Does the pt have substance abuse?: No - Immunizations Immunizations are current?: Yes - POLST Patient has POLST: No PD ED PE NORMAL - Vitals Vital signs reviewed: Yes - General General: Alert and oriented X 3, No acute distress, Well developed/nourished, Other (detatched affect, terse answers) - HEENT HEENT: Atraumatic, Moist mucous membranes, Other (no tongue bite or bruising) - Neck Neck: Supple, no meningeal sign, No bony TTP - Cardiac Cardiac: RRR, No murmur - Respiratory Respiratory: No respiratory distress, Clear bilaterally - Abdomen Abdomen: Soft, Non tender - Back Back: No spinal TTP - Derm Derm: Normal color, Warm and dry - Extremities Extremities: No deformity, Other (TTP right anterolateral shoulder, distal clavicle, and proximal humerus) - Neuro Neuro: Alert and oriented X 3, supervisor looping 2-12 intact, No motor deficit, No sensory deficit Eye Opening: Spontaneous Motor: Obeys Commands Verbal: Oriented GCS Score: 15 PD ED PE EXPANDED - Eyes Eyes: EOMI, Other (pupils appear dilated bilaterally with slight anisocoria (1- 2mm, with right pupil larger than left); both pupils are reactive to light, both direct and consensual responses) - Psych Psych: Poor eye contact Results - Vitals Vitals: Oxygen O2 Source Room air - Labs Labs: Laboratory Tests 12/30/19 12/30/19 12/30/19 03:15 03:15 03:15 WBC 9.2 RBC 3.60 L Hgb 11.1 L Hct 33.3 L MCV 92.5 MCH 30.8 MCHC 33.3 RDW 12.7 Plt Count 254 MPV 10.5 Neut # (Auto) 6.5 Lymph # (Auto) 2.0 [place] # (Auto) 0.5 Eos # (Auto) 0.1 Baso # (Auto) 0.1 Absolute Nucleated RBC 0.00 Nucleated RBC % 0.0 Sodium 135 Potassium 4.0 Chloride 104 Carbon Dioxide 21 Anion Gap 10.0 BUN 8 Creatinine 0.6 Estimated GFR (MDRD) 121 Glucose 105 H Calcium 8.1 L Total Bilirubin 1.4 H AST 19 ALT 15 Alkaline Phosphatase 70 Total Creatine Kinase 57 CK-MB (CK-2) 0.9 Total Protein 6.9 Albumin 3.7 Globulin 3.2 Albumin/Globulin Ratio 1.2 Lipase 25 - Rads (name of study) CTH with contrast Radiology: Prelim report reviewed, See rad report CT cervical spine Radiology: Prelim report reviewed, See rad report xrays right shoulder Radiology: Prelim report reviewed, See rad report PD MEDICAL DECISION MAKING - ED course Complexity details: reviewed old records, reviewed results, re-evaluated patient, considered differential, d/w patient ED course: received and reviewed discharge summary from inpatient stay in September at [facility]; she was transferred from [facility] ED for recurrent seizures. These records indicate a normal EEG, suspicion of pseudoseizures. the records also indicate patient left AMA and was both verbally abusive and physically aggressive with staff; there is note of w/u being incomplete due to AMA. I asked patient about the incomplete w/u, and she says she does not know what test(s) were pending, but she is aware more tests are needed. she says her neurologist at [facility] has referred her to a neurologist in [place] for further testing, although, again, she does not know what tests are pending. patient had several episodes of non-rhythmic muscular twitching that was not coordinated in all limbs. at times, her left eye would remain closed while her right was open. during one of these episodes, in which she stops communicating/responding verbally, I moved her right shoulder and she cried out in pain (which would be inconsistent with GTC seizure). I did this only after the xrays were performed and interpreted. she also intermittently c/o numbness in varying areas of her body during ED stay, as well as an episode of left eye visual loss; these symptoms resolved prior to d/c. she exhibited brief but definite intentional gaze during one episode when I was in room (I asked her a question while she was shaking, and she did not respond but suddenly shifted her gaze and made direct eye contact with me). these episodes did not appear c/w seizures, and frequency and duration attenuated during ED stay without specific intervention and did not occur during final period of observation prior to discharge CTH and c-spine are reassuring, and normal right shoulder xrays. I discussed results with patient and she seemed reassured by results. she was calm and in NAD, polite and comfortable with discharge. Departure - Departure Disposition: 01 Home, Self Care Clinical Impression: Seizure Condition: Good Instructions: ED Fall Uncertain Cause Discharge Date/Time: 12/30/19 06:50
[2019-12-30] MEDS ORDERED: HYDROmorphone 1 MG/ML CARPUJECT IVP STA (01:11)
[2019-12-30] MEDS ORDERED: IOVERSOL 320 100 ML VIAL IVP ONE ×2 (01:45→02:27)
[2019-12-30] MEDS ORDERED: SODIUM CHLORIDE 0.9% 1,000 ML IV STA (02:30)
[2019-12-30] MEDS ORDERED: ONDANSETRON 4 MG/2 ML VIAL IVP STA (02:30)
--- NOTE | 2019-12-30 02:30 | CT Report ---
Reason: fall, neck pain Procedure Date: 12/30/2019 Accession Number: [id number] / [id number] Procedure: CT - CERVICAL SPINE WO CPT Code: Final Report FULL RESULT: EXAM: CT CERVICAL SPINE WITHOUT CONTRAST DATE: 12/30/2019 02:22 AM. HISTORY: Fall, neck pain. COMPARISONS: HEAD W/O 08/09/2019 1:58 PM. TECHNIQUE: Thin-section axial images were acquired of the cervical spine without contrast. Post-processing: Coronal and sagittal reformats. Other: None. In accordance with CT protocol optimization, one or more of the following dose reduction techniques were utilized for this exam: automated exposure control, adjustment of mA and/or KV based on patient size, or use of iterative reconstructive technique. FINDINGS: Alignment: Mild dextroscoliosis. Straightening of the normal cervical lordosis. Bones: No fracture or bone lesion. Interspace Levels/Facets: C1-C2: Unremarkable. C2-C3: Unremarkable. C3-C4: Unremarkable. C4-C5: Unremarkable. C5-C6: Unremarkable. C6-C7: Unremarkable. C7-T1: Unremarkable. Musculature: Normal. No fatty atrophy. Other: The paravertebral and prevertebral soft tissues are unremarkable. The lung apices are clear. Chronic sphenoid sinus disease. IMPRESSION: Dextroscoliosis and straightening of the normal cervical lordosis. No evidence of acute fracture. RADIA
--- NOTE | 2019-12-30 02:49 | CT Report ---
Reason: fall, head injury, SOSA, AMS Procedure Date: 12/30/2019 Accession Number: [id number] / [id number] Procedure: CT - HEAD W CPT Code: Final Report FULL RESULT: EXAM: CT HEAD EXAM DATE: 12/30/2019 02:23 AM. CLINICAL HISTORY: Fall, head injury, SOSA, AMS. COMPARISON: HEAD W/O 08/09/2019 1:58 PM. TECHNIQUE: Multiaxial CT images were obtained from the foramen magnum to the vertex. Reformats: Sagittal and coronal. IV contrast: Optiray 320, [address]. In [address] with [address] protocol optimization, one or more of the following dose reduction techniques were utilized for this exam: automated exposure control, adjustment of mA and/or KV based on patient size, or use of iterative reconstructive technique. FINDINGS: Parenchyma: Evaluation for intracranial hemorrhage is limited in the setting of IV contrast. No precontrast CT was obtained. There is no obvious parenchymal hemorrhage. Subarachnoid hemorrhage cannot be excluded. There is no evidence of acute infarct. No pathologic enhancement is visualized. No mass lesion or mass-effect is identified. Extraaxial Spaces: Normal for age. No subdural or epidural collections identified. Ventricles: Normal in size and position. Sinuses and Orbits: Imaged paranasal sinuses, orbits, and mastoids show no significant abnormality. Bones: No evidence of fracture or calvarial defect. Other: None. IMPRESSION: 1. Evaluation for acute intracranial hemorrhage is limited in the setting of IV contrast. No definite evidence of parenchymal, subdural or epidural hematoma. Subarachnoid hemorrhage cannot be excluded. 2. No evidence of acute intracranial pathology. RADIA
[2019-12-30 03:25] LABS: BASOPHILS # (AUTO) 0.1 10^3/uL (0.0-0.1); BASOPHILS % (AUTO) 0.5 %; EOSINOPHILS # (AUTO) 0.1 10^3/uL (0.0-0.7); EOSINOPHILS % (AUTO) 0.8 %; HGB - HEMOGLOBIN 11.1 g/dL (12.0-16.0); LYMPHOCYTES % (AUTO) 21.7 %; MEAN CORPUSCULAR HEMOGLOBIN 30.8 pg (27.0-31.0); MEAN CORPUSCULAR HGB CONC 33.3 g/dL (32.0-36.0); MEAN CORPUSCULAR VOLUME 92.5 fL (81.0-99.0); MEAN PLATELET VOLUME 10.5 fL (7.9-10.8); MONOCYTES # (AUTO) 0.5 10^3/uL (0.0-1.0); MONOCYTES % (AUTO) 5.9 %; NEUTROPHILS # (AUTO) 6.5 10^3/uL (1.5-6.6); NEUTROPHILS % (AUTO) 70.8 %; PLT - PLATELET COUNT 254 10^3/uL (130-450); RED CELL DISTRIBUTION WIDTH 12.7 % (12.0-15.0); WHITE BLOOD COUNT 9.2 x10^3/uL (4.8-10.8)
--- NOTE | 2019-12-30 03:31 | XRAY Report ---
Reason: fall, right shoulder pain Procedure Date: 12/30/2019 Accession Number: [id number] / [id number] Procedure: XR - Shoulder 3 View RT CPT Code: Final Report FULL RESULT: EXAM: RIGHT SHOULDER RADIOGRAPHY EXAM DATE: 12/30/2019 03:18 AM. CLINICAL HISTORY: Fall, right shoulder pain. COMPARISON: None. TECHNIQUE: 3 views. FINDINGS: Bones: Normal. No fracture or bone lesion. Joints: The glenohumeral and acromioclavicular joints are normal. Soft tissues: The visualized hemithorax is unremarkable. No soft tissue swelling. IMPRESSION: Normal shoulder radiography. RADIA
[2019-12-30 03:40] LABS: ALBUMIN 3.7 g/dL (3.2-5.5); ALBUMIN/GLOBULIN RATIO 1.2 (1.0-2.2); BILIRUBIN,TOTAL 1.4 mg/dL (0.2-1.0); CALCIUM 8.1 mg/dL (8.5-10.3); CREATININE 0.6 mg/dL (0.4-1.0); TOTAL PROTEIN 6.9 g/dL (6.7-8.2)
[2019-12-30 07:07] VITALS: BP 112/70
== END 2019-12-30 06:50 | disposition home or self-care (01) ==
LOC: EDUNIT# → ED 00:32
DX: G40.909 Epilepsy, unspecified, not intractable, without status epilepticus (principal); M25.511 Pain in right shoulder; M54.2 Cervicalgia; R51 Headache; W19.XXXA Unspecified fall, initial encounter; Y92.000 Kitchen of unspecified non-institutional (private) residence as the place of occurrence of the external cause; M41.9 Scoliosis, unspecified
CPT/HCPCS: 36415; 70460; 72125; 73030; 80053; 82550; 82553; 83690; 85025; 96361; 96374; 99284; Q9967

== ENCOUNTER 2019-12-31 12:49 | Outpatient (CLI) | payer OTHER | END 2019-12-31 12:50 | disposition critical access hospital (66) | LOC: EMS 12:49 | PROVIDERS: ATTEND Surgery | DX: R56.9 Unspecified convulsions (principal) | CPT/HCPCS: A0425; A0427 ==

== ENCOUNTER 2019-12-31 13:04 | Emergency (ER) | payer OTHER ==
--- NOTE | 2019-12-31 13:12 | ED Physician Documentation ---
PD HPI SEIZURE - Stated complaint Stated Complaint: SEIZURE - Chief complaint Chief Complaint: Neuro - History obtained from History obtained from: Patient, EMS - History of Present Illness Timing - onset: Today (This is a young woman who has either seizures or pseudoseizures from looking in the chart. She is had increased frequency of her episodes lately. Multiple today. On arrival she is apparently convulsing but also responding to painful stimulus and quickly responding to commands as well.) Review of Systems Unable to obtain: Uncooperative PD PAST MEDICAL HISTORY - Past Medical History Cardiovascular: Other Respiratory: None Neuro: Seizure disorder, Other Endocrine/Autoimmune: None GI: GERD, Cholelithiasis : Chronic bladder infection HEENT: None Psych: Anxiety, Panic attacks, Post traumatic stress disorder Musculoskeletal: Chronic back pain Derm: Eczema - Past Surgical History Past Surgical History: Yes General: Appendectomy /DRAFTER (CAD) ELECTRONIC: section HEENT: Tonsil/Adenoidectomy - Present Medications Home Medications: Ambulatory Orders Medication Instructions Recorded Confirmed Propranolol HCl 10 mg PO BID PRN 07/03/19 12/31/19 Prazosin [Minipress] 2 mg PO QPM 10/13/19 12/31/19 Albuterol Sulf [Ventolin Hfa 1 - 2 puffs INH Q4HR PRN #1 inhaler 11/02/19 12/31/19 Inhaler] Escitalopram [Lexapro] 10 mg PO DAILY 12/30/19 12/31/19 Levetiracetam [Keppra] 500 mg PO BID 12/30/19 12/31/19 Potassium Chloride 10 meq PO DAILY 12/30/19 12/31/19 - Allergies Allergies/Adverse Reactions: Allergies Allergy/AdvReac Type Severity Reaction Status Date / Time nut - unspecified Allergy Severe Anaphylaxis Verified 12/31/19 13:10 pineapple Allergy Severe Edema Verified 12/31/19 13:10 ирина Allergy Hives Verified 12/31/19 13:10 morphine Allergy Hives Verified 12/31/19 13:10 peanut Allergy Anaphylaxis Verified 12/31/19 13:10 Latex, Natural Rubber AdvReac Rash Verified 12/31/19 13:10 - Social History Does the pt smoke?: No Smoking Status: Never smoker Does the pt drink ETOH?: Yes Does the pt have substance abuse?: No - Immunizations Immunizations are current?: Yes - POLST Patient has POLST: No PD ED PE NORMAL - Vitals Vital signs reviewed: Yes - General General: Other (On initial arrival she is actively convulsing, but winces with sternal rub and then quickly starts following commands.) - HEENT HEENT: PERRL, EOMI - Neck Neck: Supple, no meningeal sign, No bony TTP - Cardiac Cardiac: RRR, No murmur - Respiratory Respiratory: No respiratory distress, Clear bilaterally - Abdomen Abdomen: Normal bowel sounds, Soft, Non tender - Back Back: No CVA TTP, No spinal TTP - Derm Derm: Normal color, Warm and dry - Extremities Extremities: No edema, No calf tenderness / cord - Neuro Neuro: No motor deficit, No sensory deficit Results - Vitals Vitals: Vital Signs - 24 hr 12/31/19 12/31/19 12/31/19 13:05 14:05 15:05 Temperature 36.9 C Heart Rate 109 H 97 78 Respiratory 16 12 16 Rate Blood Pressure 117/67 97/74 127/78 O2 Saturation 97 99 98 Oxygen O2 Source Room air - Labs Labs: Laboratory Tests 12/31/19 12/31/19 12/31/19 13:23 13:23 13:23 WBC 7.1 RBC 3.78 L Hgb 11.6 L Hct 34.9 L MCV 92.3 MCH 30.7 MCHC 33.2 RDW 13.1 Plt Count 229 MPV 9.9 Neut # (Auto) 4.9 Lymph # (Auto) 1.7 [place] # (Auto) 0.4 Eos # (Auto) 0.1 Baso # (Auto) 0.0 Absolute Nucleated RBC 0.00 Nucleated RBC % 0.0 Sodium 137 Potassium 3.6 Chloride 101 Carbon Dioxide 24 Anion Gap 12.0 BUN 12 Creatinine 0.7 Estimated GFR (MDRD) 101 Glucose 93 Calcium 8.8 Total Bilirubin 1.5 H AST 19 ALT 15 Alkaline Phosphatase 75 Total Protein 7.4 Albumin 4.0 Globulin 3.4 Albumin/Globulin Ratio 1.2 Lipase 23 TSH 0.92 Prolactin 44.30 Ethyl Alcohol < 5.0 PD MEDICAL DECISION MAKING - ED course ED course: On initial arrival this looks very much like a pseudoseizure, there was no postictal element to it, quick return to normal, and response to painful stimulus during the convulsion. She is seeing a neurologist but she is unable to name who. I am able to ascertain that it is a female neurologist in [place], I printed out the [facility] website and all of the neurologist they have been she said it was not any of them. She did say it was with the [facility] though. She saw Dr. Hodgson just the other night, his notes were reviewed. He was able to obtain notes from [place] there was some sort of uncompleted work-up but the presumption was that she had pseudoseizures based on a negative EEG. There was also the comments that she had been belligerent with staff and signed out AMA. I spoke with Dr. Raman, neurologist at the [facility]. He agrees that these are likely pseudoseizures but unfortunately feels like we cannot definitively make that determination based on the limited data we have on hand and recommended transfer for video EEG monitoring. She has a medical advocate at the bedside, she corroborated that he was planned for the patient to go to [facility] for further testing and it seems reasonable to call them since they have expanded services with regard to video EEG. I spoke with Dr. Santana at [facility] who reviewed the records he had available to him, and confirmed that previous EEG was negative with ongoing convulsions confirming the diagnosis of pseudoseizures and did not recommend transfer for inpatient monitoring. He said that she has an appointment in a couple of weeks with [facility], they will likely change her medications but does not recommend that I do that now. At discharge the patient's neuro status was normal, she was actually somewhat belligerent and swearing. On discharge the patient's neurologic status was normal. Her mental status was normal. Departure - Departure Disposition: 01 Home, Self Care Clinical Impression: Pseudoseizures Condition: Good Record reviewed to determine appropriate education?: Yes Comments: Return anytime for new or worsening symptoms. Follow-up with the [facility] epilepsy clinic on January 10 as scheduled.As discussed I discussed her case today with Dr. Hernandez who feels that they will probably change her medications when you go to that appointment but did not recommend that I change them now. Discharge Date/Time: 12/31/19 16:14
[2019-12-31 13:26] LABS: BASOPHILS % (AUTO) 0.1 %; EOSINOPHILS # (AUTO) 0.1 10^3/uL (0.0-0.7); EOSINOPHILS % (AUTO) 1.7 %; HGB - HEMOGLOBIN 11.6 g/dL (12.0-16.0); LYMPHOCYTES # (AUTO) 1.7 10^3/uL (1.5-3.5); LYMPHOCYTES % (AUTO) 23.8 %; MEAN CORPUSCULAR HEMOGLOBIN 30.7 pg (27.0-31.0); MEAN CORPUSCULAR HGB CONC 33.2 g/dL (32.0-36.0); MEAN CORPUSCULAR VOLUME 92.3 fL (81.0-99.0); MEAN PLATELET VOLUME 9.9 fL (7.9-10.8); MONOCYTES # (AUTO) 0.4 10^3/uL (0.0-1.0); MONOCYTES % (AUTO) 5.2 %; NEUTROPHILS # (AUTO) 4.9 10^3/uL (1.5-6.6); NEUTROPHILS % (AUTO) 69.1 %; PLT - PLATELET COUNT 229 10^3/uL (130-450); RED BLOOD COUNT 3.78 10^6/uL (4.20-5.40); RED CELL DISTRIBUTION WIDTH 13.1 % (12.0-15.0); WHITE BLOOD COUNT 7.1 x10^3/uL (4.8-10.8)
[2019-12-31 13:42] LABS: ALBUMIN/GLOBULIN RATIO 1.2 (1.0-2.2); ALKALINE PHOSPHATASE 75 IU/L (42-121); ALT ALANINE AMINOTRANSFERASE 15 IU/L (10-60); AST ASPARTATE AMINOTRANSFERASE 19 IU/L (10-42); BILIRUBIN,TOTAL 1.5 mg/dL (0.2-1.0); BUN - BLOOD UREA NITROGEN 12 mg/dL (6-20); CALCIUM 8.8 mg/dL (8.5-10.3); CARBON DIOXIDE - CO2 24 mmol/L (21-32); CHLORIDE 101 mmol/L (101-111); CREATININE 0.7 mg/dL (0.4-1.0); GFR - MDRD 101 (>89); GLUCOSE 93 mg/dL (70-100); LIPASE 23 U/L (22-51); SODIUM 137 mmol/L (135-145); TOTAL PROTEIN 7.4 g/dL (6.7-8.2)
[2019-12-31 13:59] LABS: THYROID STIMULATING HORMONE 0.92 uIU/mL (0.34-5.60)
[2019-12-31 14:04] LABS: PROLACTIN 44.3 ng/mL
[2019-12-31 15:06] VITALS: BP 127/78
== END 2019-12-31 16:14 | disposition home or self-care (01) ==
LOC: EDUNIT# → ED 13:04
DX: F44.9 Dissociative and conversion disorder, unspecified (principal)
CPT/HCPCS: 36415; 80053; 80320; 83690; 84146; 84443; 85025; 99284; 99285

== ENCOUNTER 2019-12-31 20:16 | Outpatient (CLI) | payer OTHER | END 2019-12-31 20:17 | disposition short-term general hospital (02) | LOC: EMS 20:16 | PROVIDERS: ATTEND Surgery | DX: R56.9 Unspecified convulsions (principal) | CPT/HCPCS: A0425; A0429 ==

== ENCOUNTER 2020-05-20 09:57 | Outpatient (CLI) | payer OTHER ==
[2020-05-20 10:20] LABS: BASOPHILS % (AUTO) 0.6 %; EOSINOPHILS # (AUTO) 0.1 10^3/uL (0.0-0.7); EOSINOPHILS % (AUTO) 2.2 %; HGB - HEMOGLOBIN 11.6 g/dL (12.0-16.0); LYMPHOCYTES # (AUTO) 1.7 10^3/uL (1.5-3.5); LYMPHOCYTES % (AUTO) 26.9 %; MEAN CORPUSCULAR HEMOGLOBIN 31.4 pg (27.0-31.0); MEAN CORPUSCULAR HGB CONC 34.9 g/dL (32.0-36.0); MEAN PLATELET VOLUME 10.3 fL (7.9-10.8); MONOCYTES # (AUTO) 0.5 10^3/uL (0.0-1.0); MONOCYTES % (AUTO) 7.5 %; NEUTROPHILS % (AUTO) 62.5 %; PLT - PLATELET COUNT 249 10^3/uL (130-450); RED BLOOD COUNT 3.69 10^6/uL (4.20-5.40); RED CELL DISTRIBUTION WIDTH 13.1 % (12.0-15.0); WHITE BLOOD COUNT 6.4 x10^3/uL (4.8-10.8)
[2020-05-20 10:38] LABS: ALBUMIN/GLOBULIN RATIO 1.1 (1.0-2.2); ALKALINE PHOSPHATASE 69 IU/L (42-121); ALT ALANINE AMINOTRANSFERASE 17 IU/L (10-60); AST ASPARTATE AMINOTRANSFERASE 22 IU/L (10-42); BUN - BLOOD UREA NITROGEN 13 mg/dL (6-20); CALCIUM 8.6 mg/dL (8.5-10.3); CARBON DIOXIDE - CO2 21 mmol/L (21-32); CHLORIDE 102 mmol/L (101-111); CREATININE 0.7 mg/dL (0.4-1.0); GLUCOSE 108 mg/dL (70-100); SODIUM 137 mmol/L (135-145); TOTAL PROTEIN 7.7 g/dL (6.7-8.2)
[2020-05-20 11:16] LABS: CRP - C-REACTIVE PROTEIN < 1.0 mg/dL (0-1.0)
--- NOTE | 2020-05-20 12:28 | XRAY Report ---
PROCEDURE: Chest 2 View X-Ray INDICATIONS: MOLD EXPOSURE TECHNIQUE: 2 view(s) of the chest. COMPARISON: . FINDINGS: Surgical changes and devices: None. Lungs and pleura: No pleural effusions or pneumothorax. Lungs are clear. Mediastinum: Mediastinal contours are normal. Heart size is normal. Bones and chest wall: No suspicious bony abnormalities. Soft tissues appear unremarkable. IMPRESSION: No acute cardiopulmonary pathology. Reviewed by: Jermaine Sears MD on 05/20/2020 12:27 PM PDT Approved by: Jermaine Sears MD on 05/20/2020 12:27 PM PDT Station ID: [id number]
== END 2020-05-20 09:58 | disposition home or self-care (01) ==
LOC: LAB 09:57 → DI 09:58
PROVIDERS: ATTEND Nurse Practitioner
DX: J45.998 Other asthma (principal); Z77.120 Contact with and (suspected) exposure to mold (toxic)
CPT/HCPCS: 36415; 71046; 80053; 85025; 85651; 86140

== ENCOUNTER 2020-07-15 07:00 | Outpatient (CLI) | payer OTHER | END 2020-07-15 23:59 | disposition home or self-care (01) | LOC: LAB.R 07:00 | PROVIDERS: ATTEND Nurse Practitioner Family | DX: N30.00 Acute cystitis without hematuria (principal) | CPT/HCPCS: 87086 ==